=== PATIENT | female | born 1950 | race Caucasian/White ===

== ENCOUNTER → 2017-02-26 | Outpatient (CLI) | payer OTHER ==
[~2017-02-26] MED LIST: ALBIPROI; ALBIPROI INH; ALBU.083IS IH; ALBU90OI6 INH; ALBU90OI61 INH; ALEN70 PO; AMOX500; ARIP20 PO; ARIP30 PO; ASPI325 PO; ASPI81CH PO; ASPI81EC PO; ATOR20 PO; BACL10 PO; BENZ100A PO; BUPR150ER PO; BUPR150T2; BUSP10 PO; Budeprion Xl300 MG PO; Bystolic2.5 MG PO; CALCAVITD PO; CALCAVITDA PO; CALGLU500 PO; CALMAGZIN PO; CLIM.025TP TD; CONEST.3 PO; CYCL10 PO; Calcium 250+D1 EACH PO; DHEA 10 MG TAB1 EACH PO; DIPH50 PO; DIVA250EC; DIVA250ER PO; DIVA500EC; DIVA500EC PO; DIVA500ER PO; DOXY100T53 PO; DULO60 PO; Desyrel50 MG PO; ERGO50000 PO; ESTR.05PBW TOP; FLUSAL5005 INH; GEMF600; HYDACE5325 PO; IBUP800 PO; LEVAQUIN; LEVO750 PO; LEVSOD100 PO; LEVSOD50 PO; LEVSOD75 PO; LORA.5; LORA.5 PO; LORA1; LORA1 PO; LOVA20 PO; MELA3; MELO7.5 PO; MILN100T PO; MOMENI; MONT10T PO; NABU750 PO; NAC600 MG PO; NAPR500 PO; NASACORT10.8 ML; NASOCORT; NICO14TP TOP; NICO21TP TOP; NICO7 TOP; Naprosyn500 MG PO; Norco 5-325 Ta1 EACH PO; OLAN5 PO; OMEP20ER PO; ONDA4ODT MM; PANT40 PO; PRED10 PO; PREG100 PO; PREG50; PROBIOTIC1 EAC1 PO; PROG100 PO; PROP10 PO; Prometrium200 MG PO; QNASL CHILDREN4.9 GM INH; QUET100; QUET25; RANI150 PO; RISP.25; RISP.5; RISP2; ROFL500T PO; Rapaflo8 MG PO; Reclast 55 MG/100 M IV; SAVELLA50 MG PO; SERT100 PO; SIMV40 PO; STOOL SOFTENER1 EAC1 PO; TIOT18 IH; TIOT18 INH; TIZANIDINE HCL4 MG PO; TIZANIDINE HCL6 MG PO; TOPI100 PO; TOPI25C PO; TRAM50 PO; TRAZ100 PO; TRAZ50; TRAZ50 PO; Ultram50 MG PO; Ventolin Soln3 ML INH; Ventolin Soln3 ML NEB; Ventolin5 MG/1 ML INH; ZOLEDRONIC4 MG/100 M IV; Zofran4 MG PO; [UNRECOGNIZED DRUG - OTHER]; [UNRECOGNIZED DRUG - REMARK]; [UNRECOGNIZED DRUG - REMARK]
== END | disposition home or self-care (01) ==
LOC: OLS 13:25
DX: R05 Cough (principal)
CPT/HCPCS: 87070; 87205

== ENCOUNTER 2017-03-18 06:44 | Emergency (ER) | payer OTHER ==
[~2017-03-18] VITALS: Ht 170.2 cm; Wt 52.2 kg
[~2017-03-18 06:44] MED LIST changes: -QNASL CHILDREN4.9 GM INH; -SAVELLA50 MG PO; -TOPI25C PO
== END 2017-03-18 08:35 | disposition home or self-care (01) ==
LOC: ER 06:44
DX: S29.9XXA Unspecified injury of thorax, initial encounter (principal); W10.9XXA Fall (on) (from) unspecified stairs and steps, initial encounter; Z88.5 Allergy status to narcotic agent; Z88.8 Allergy status to other drugs, medicaments and biological substances; Z79.899 Other long term (current) drug therapy; Z86.73 Personal history of transient ischemic attack (TIA), and cerebral infarction without residual deficits
CPT/HCPCS: 71101; 99283

== ENCOUNTER 2017-04-09 13:03 | Day surgery (SDC) | payer OTHER ==
[~2017-04-09] VITALS: Ht 167.6 cm; Wt 54.3 kg
[2017-04-09] MEDS ORDERED: QNASL CHILDREN4.9 GM INH (14:15)
[2017-04-09] MEDS ORDERED: ALBU90OI61 INH (14:17)
[2017-04-09] MEDS ORDERED: TOPI25C PO (14:17)
== END 2017-04-09 15:55 | disposition home or self-care (01) ==
LOC: ORSCSDS 13:03
PROVIDERS: Internal Medicine Gastroenterology
PROC: 0DB68ZX Excision of Stomach, Via Natural or Artificial Opening Endoscopic, Diagnostic (ICD-10-PCS; principal; 2017-04-09 14:45)
PROC: 0DB58ZX Excision of Esophagus, Via Natural or Artificial Opening Endoscopic, Diagnostic (ICD-10-PCS; principal; 2017-04-09 14:45)
DX: K92.0 Hematemesis (principal); K22.2 Esophageal obstruction; K29.80 Duodenitis without bleeding; K21.0 Gastro-esophageal reflux disease with esophagitis; J45.909 Unspecified asthma, uncomplicated; F31.9 Bipolar disorder, unspecified; M79.7 Fibromyalgia; E78.5 Hyperlipidemia, unspecified; E03.9 Hypothyroidism, unspecified; Z87.891 Personal history of nicotine dependence; Z79.899 Other long term (current) drug therapy; K29.70 Gastritis, unspecified, without bleeding
CPT/HCPCS: 88305; 88342; J7120

== ENCOUNTER 2017-06-24 22:31 | Observation (INO) | payer OTHER ==
[~2017-06-24] VITALS: Ht 167.6 cm; Wt 49.9 kg
[~2017-06-24 22:31] MED LIST changes: +QNASL CHILDREN4.9 GM INH; +TOPI25C PO
[2017-06-24 22:44] LABS: Source, Urine Clean Catch
[2017-06-24 22:51] LABS: Bilirubin, Urine Neg (Neg); Blood, Urine 1+ (Neg); Glucose Qualitative, Urine Neg (Neg); Ketones, Urine Neg (Neg); Leukocyte Esterase, Urine Neg (Neg); Nitrite, Urine Neg (Neg); Protein, Urine Neg (Neg); Specific Gravity, Urine 1.005 (1.003-1.022); Urobilinogen, Urine NORM (Normal)
[2017-06-24 22:55] LABS: Appearance, Urine Clear (Clear); Color, Urine Yellow (P-Yellow)
[2017-06-24 22:57] LABS: Bacteria Few /hpf; Red Blood Cells, Urine 0-2 /hpf (0-2); Squamous Epithelial Cells Rare /hpf (Few); White Blood Cells, Urine 0-2 /hpf (0-5)
[2017-06-24 23:04] LABS: U Amphetamine Screen Not Detected; U Barbituate Screen Not Detected; U Benzodiazapine Screen Not Detected; U Buprenorphine Screen Not Detected; U Cannabinoids Screen Not Detected; U Cocaine Screen Not Detected; U Methadone Screen Not Detected; U Methamphetamine Screen Not Detected; U Opiates Screen Not Detected; U Oxycodone Screen Not Detected; U Phencyclidine Screen Not Detected; U Propoxyphene Screen Not Detected
[2017-06-24 23:39] LABS: BASOPHILS ABSOLUTE AUTO 0.04 K/mm3 (0.00-0.23); BASOPHILS PERCENT AUTO 1 % (0-2); EOSINOPHILS ABSOLUTE AUTO 0.09 K/mm3 (0.00-0.68); EOSINOPHILS PERCENT AUTO 1 % (0-6); Hematocrit 38.6 % (33.0-51.0); Hemoglobin 12.8 g/dL (11.5-16.0); IMMATURE GRAN ABSOLUTE AUTO 0.02 K/mm3 (0.00-0.10); IMMATURE GRAN PERCENT AUTO 0 % (0-1); LYMPHOCYTES ABSOLUTE AUTO 2.72 K/mm3 (0.84-5.20); LYMPHOCYTES PERCENT AUTO 44 % (21-46); MONOCYTES PERCENT AUTO 8 % (4-13); Mean Corpuscular HGB 31.7 pg (26.0-34.0); Mean Corpuscular HGB Conc 33.2 g/dL (31.5-36.5); Mean Corpuscular Volume 96 fL (80-100); Mean Platelet Volume 10.3 fL (9.1-12.4); NEUTROPHILS ABSOLUTE AUTO 2.86 K/mm3 (1.96-9.15); NEUTROPHILS PERCENT AUTO 46 % (41-73); Platelet Count 327 K/mm3 (150-400); RDW Standard Deviation 51.9 fL (35.1-46.3); Red Blood Cell Count 4.04 M/mm3 (3.80-5.20); White Blood Cell Count 6.23 K/mm3 (4.00-11.30)
[2017-06-24] MEDS ORDERED: SAVELLA50 MG PO (23:40)
[2017-06-25 00:03] LABS: Alanine Aminotransfer (ALT/SGP 23 U/L (12-78); Alk Phos 109 U/L (50-136); Anion Gap 8 mmol/L (6-16); Aspartate Aminotrans (AST/SGOT 24 U/L (12-37); Bilirubin, Total 0.2 mg/dL (0.1-1.0); Blood Urea Nitrogen 12 mg/dL (8-24); Bun/Creatinine Ratio 14.1 (12.0-20.0); CO2, Blood 27 mmol/L (21-32); Calcium, Blood 8.9 mg/dL (8.5-10.1); Chloride, Blood 110 mmol/L (98-108); Creatinine, Blood 0.85 mg/dL (0.40-1.00); Ethanol (Alcohol), Blood, Med 212 mg/dL; Globulin, Blood 4.1 g/dL (2.2-4.0); Glomerular Filtration Rate >60 (60-); Glucose, Blood 107 mg/dL (70-99); Potassium, Blood 3.7 mmol/L (3.5-5.5); Salicylate <1.7 mg/dL (2.8-20.0); Sodium, Blood 145 mmol/L (136-145); Total Protein, Blood 8.1 g/dL (6.4-8.2)
[2017-06-25 00:08] LABS: Acetaminophen, Random <2.0 ug/mL (10.0-30.0)
== END 2017-06-25 14:09 | disposition home or self-care (01) ==
LOC: ER 22:31 → EOR 22:32
PROVIDERS: Emergency Medicine
DX: S61.512A Laceration without foreign body of left wrist, initial encounter (principal); S61.511A Laceration without foreign body of right wrist, initial encounter; X78.1XXA Intentional self-harm by knife, initial encounter; F10.129 Alcohol abuse with intoxication, unspecified; M81.0 Age-related osteoporosis without current pathological fracture; F31.9 Bipolar disorder, unspecified; Y90.7 Blood alcohol level of 200-239 mg/100 ml; Z88.5 Allergy status to narcotic agent; Z88.1 Allergy status to other antibiotic agents; Z88.8 Allergy status to other drugs, medicaments and biological substances; Z79.899 Other long term (current) drug therapy; Z98.890 Other specified postprocedural states; Z90.49 Acquired absence of other specified parts of digestive tract; Z90.710 Acquired absence of both cervix and uterus; Z87.891 Personal history of nicotine dependence
CPT/HCPCS: 12002; 80053; 81001; 81025; 84443; 85025; 90471; 90714; 99285; G0378; G0480

== ENCOUNTER 2017-09-10 20:54 | Emergency (ER) | payer OTHER ==
[~2017-09-10] VITALS: Ht 167.6 cm; Wt 54.4 kg
[~2017-09-10 20:54] MED LIST changes: +SAVELLA50 MG PO
[2017-09-10 23:18] LABS: BASOPHILS ABSOLUTE AUTO 0.01 K/mm3 (0.00-0.23); BASOPHILS PERCENT AUTO 0 % (0-2); EOSINOPHILS ABSOLUTE AUTO 0.01 K/mm3 (0.00-0.68); EOSINOPHILS PERCENT AUTO 0 % (0-6); Hematocrit 34.3 % (33.0-51.0); Hemoglobin 11.1 g/dL (11.5-16.0); IMMATURE GRAN ABSOLUTE AUTO 0.02 K/mm3 (0.00-0.10); IMMATURE GRAN PERCENT AUTO 0 % (0-1); LYMPHOCYTES ABSOLUTE AUTO 2.12 K/mm3 (0.84-5.20); LYMPHOCYTES PERCENT AUTO 38 % (21-46); MONOCYTES ABSOLUTE AUTO 0.73 K/mm3 (0.16-1.47); MONOCYTES PERCENT AUTO 13 % (4-13); Mean Corpuscular HGB 33.3 pg (26.0-34.0); Mean Corpuscular HGB Conc 32.4 g/dL (31.5-36.5); Mean Corpuscular Volume 103 fL (80-100); Mean Platelet Volume 11.3 fL (9.1-12.4); NEUTROPHILS ABSOLUTE AUTO 2.75 K/mm3 (1.96-9.15); NEUTROPHILS PERCENT AUTO 49 % (41-73); Platelet Count 252 K/mm3 (150-400); RDW Standard Deviation 49.3 fL (35.1-46.3); Red Blood Cell Count 3.33 M/mm3 (3.80-5.20); White Blood Cell Count 5.64 K/mm3 (4.00-11.30)
[2017-09-10 23:36] LABS: Alanine Aminotransfer (ALT/SGP 34 U/L (12-78); Albumin, Blood 3.7 g/dL (3.4-5.0); Albumin/Globulin Ratio 1.1 (0.8-1.8); Alk Phos 156 U/L (50-136); Anion Gap 13 mmol/L (6-16); Aspartate Aminotrans (AST/SGOT 29 U/L (12-37); Bilirubin, Total 0.2 mg/dL (0.1-1.0); Blood Urea Nitrogen 17 mg/dL (8-24); Bun/Creatinine Ratio 18.1 (12.0-20.0); CO2, Blood 23 mmol/L (21-32); Calcium, Blood 8.3 mg/dL (8.5-10.1); Chloride, Blood 111 mmol/L (98-108); Creatinine, Blood 0.94 mg/dL (0.40-1.00); Ethanol (Alcohol), Blood, Med 161 mg/dL; Globulin, Blood 3.5 g/dL (2.2-4.0); Glomerular Filtration Rate >60 (60-); Glucose, Blood 114 mg/dL (70-99); Salicylate <1.7 mg/dL (2.8-20.0); Sodium, Blood 147 mmol/L (136-145); Total Protein, Blood 7.2 g/dL (6.4-8.2)
[2017-09-10 23:45] LABS: Acetaminophen, Random <2.0 ug/mL (10.0-30.0)
[2017-09-11 03:24] LABS: Source, Urine Clean Catch
[2017-09-11 03:26] LABS: Appearance, Urine Clear (Clear); Bilirubin, Urine Neg (Neg); Blood, Urine 2+ (Neg); Color, Urine Yellow (P-Yellow); Glucose Qualitative, Urine Neg (Neg); Ketones, Urine Neg (Neg); Leukocyte Esterase, Urine Neg (Neg); Nitrite, Urine Neg (Neg); Protein, Urine Neg (Neg); Urobilinogen, Urine NORM (Normal)
[2017-09-11 03:37] LABS: U Amphetamine Screen Not Detected; U Barbituate Screen Not Detected; U Benzodiazapine Screen Not Detected; U Buprenorphine Screen Not Detected; U Cannabinoids Screen Not Detected; U Cocaine Screen Not Detected; U Methadone Screen Not Detected; U Methamphetamine Screen Not Detected; U Opiates Screen Not Detected; U Oxycodone Screen Not Detected; U Phencyclidine Screen Not Detected; U Propoxyphene Screen Not Detected
[2017-09-11 03:44] LABS: Bacteria Few /hpf; Red Blood Cells, Urine 0-2 /hpf (0-2); Squamous Epithelial Cells Few /hpf (Few); White Blood Cells, Urine 0-2 /hpf (0-5)
== END 2017-09-11 06:01 | disposition home or self-care (01) ==
LOC: ER 20:54
PROVIDERS: Emergency Medicine
DX: S61.512A Laceration without foreign body of left wrist, initial encounter (principal); F31.9 Bipolar disorder, unspecified; F10.129 Alcohol abuse with intoxication, unspecified; Z88.5 Allergy status to narcotic agent; Z91.048 Other nonmedicinal substance allergy status; Z88.8 Allergy status to other drugs, medicaments and biological substances; Z88.1 Allergy status to other antibiotic agents; Z79.899 Other long term (current) drug therapy; Z86.73 Personal history of transient ischemic attack (TIA), and cerebral infarction without residual deficits; Z87.891 Personal history of nicotine dependence; X78.1XXA Intentional self-harm by knife, initial encounter
CPT/HCPCS: 80053; 81001; 81025; 84443; 85025; 99284; G0480

== ENCOUNTER → 2018-05-30 | Outpatient (CLI) | payer OTHER ==
[2018-06-04 08:13] LABS: COTININE None Detected (.); NICOTINE None Detected (.)
== END | disposition home or self-care (01) ==
LOC: LAB 11:15 → LAB SHORT 11:15
PROVIDERS: Ophthalmology
DX: F17.211 Nicotine dependence, cigarettes, in remission (principal)
CPT/HCPCS: G0480

== ENCOUNTER 2018-06-12 10:25 | Day surgery (SDC) | payer OTHER ==
[~2018-06-12] VITALS: Ht 167.6 cm; Wt 58.6 kg
--- NOTE | 2018-06-12 16:45 | NUR ---
06/12/18 1645 Barrett Szymanski 1ST IV ATTEMPT IN RH UNSUCCESSFUL, RAGNEL 2ND IV ATTEMPT IN RAC SUCCESSFUL, RANGEL
== END 2018-06-12 12:30 | disposition home or self-care (01) ==
LOC: ORSCSDS 10:25
PROVIDERS: Ophthalmology
PROC: 08RJ3JZ Replacement of Right Lens with Synthetic Substitute, Percutaneous Approach (ICD-10-PCS; principal; 2018-06-12 12:00)
DX: H25.11 Age-related nuclear cataract, right eye (principal); I10 Essential (primary) hypertension; J44.9 Chronic obstructive pulmonary disease, unspecified; E03.9 Hypothyroidism, unspecified; K21.9 Gastro-esophageal reflux disease without esophagitis; Z79.899 Other long term (current) drug therapy; Z87.891 Personal history of nicotine dependence
CPT/HCPCS: J2001; J2250; J3010; V2632

== ENCOUNTER 2018-06-26 11:29 | Day surgery (SDC) | payer OTHER ==
[~2018-06-26] VITALS: Ht 167.6 cm; Wt 58.7 kg
--- NOTE | 2018-06-26 12:18 | NUR ---
06/26/18 1218 Barrett Szymanski 1ST IV ATTEMPT IN LAC UNSUCCESSFUL, ORSC.DLB 2ND IV ATTEMPT IN RH SUCCESSFUL, ORSC.DLB
== END 2018-06-26 13:20 | disposition home or self-care (01) ==
LOC: ORSCSDS 11:29
PROVIDERS: Ophthalmology
PROC: 08RK3JZ Replacement of Left Lens with Synthetic Substitute, Percutaneous Approach (ICD-10-PCS; principal; 2018-06-26 13:00)
DX: H25.12 Age-related nuclear cataract, left eye (principal); E03.9 Hypothyroidism, unspecified; J44.9 Chronic obstructive pulmonary disease, unspecified; F43.12 Post-traumatic stress disorder, chronic; M79.7 Fibromyalgia; F31.62 Bipolar disorder, current episode mixed, moderate; Z87.891 Personal history of nicotine dependence; Z79.899 Other long term (current) drug therapy
CPT/HCPCS: J2001; J2250; J3010; V2632

== ENCOUNTER 2018-12-06 09:04 | Emergency (ER) | payer OTHER ==
[~2018-12-06] VITALS: Ht 152.4 cm; Wt 50.8 kg
[2018-12-06 09:58] LABS: BASOPHILS ABSOLUTE AUTO 0.03 K/mm3 (0.00-0.23); BASOPHILS PERCENT AUTO 0 % (0-2); EOSINOPHILS ABSOLUTE AUTO 0.04 K/mm3 (0.00-0.68); EOSINOPHILS PERCENT AUTO 0 % (0-6); Hematocrit 44.1 % (33.0-51.0); Hemoglobin 14.3 g/dL (11.5-16.0); IMMATURE GRAN ABSOLUTE AUTO 0.24 K/mm3 (0.00-0.10); IMMATURE GRAN PERCENT AUTO 2 % (0-1); LYMPHOCYTES ABSOLUTE AUTO 2.66 K/mm3 (0.84-5.20); LYMPHOCYTES PERCENT AUTO 23 % (21-46); MONOCYTES ABSOLUTE AUTO 0.73 K/mm3 (0.16-1.47); MONOCYTES PERCENT AUTO 6 % (4-13); Mean Corpuscular HGB 33.5 pg (26.0-34.0); Mean Corpuscular HGB Conc 32.4 g/dL (31.5-36.5); Mean Corpuscular Volume 103 fL (80-100); Mean Platelet Volume 11.9 fL (9.1-12.4); NEUTROPHILS ABSOLUTE AUTO 8.04 K/mm3 (1.96-9.15); NEUTROPHILS PERCENT AUTO 69 % (41-73); NRBC ABSOLUTE 0.03 K/mm3 (0.00-0.02); NRBC Auto 0.3 /100 WBC (0.0-0.2); Platelet Count 241 K/mm3 (150-400); RDW Coefficient Variation 12.8 % (11.7-14.2); RDW Standard Deviation 48.7 fL (35.1-46.3); Red Blood Cell Count 4.27 M/mm3 (3.80-5.20); White Blood Cell Count 11.74 K/mm3 (4.00-11.30)
[2018-12-06 10:16] LABS: Albumin, Blood 3.4 g/dL (3.4-5.0); Albumin/Globulin Ratio 0.8 (0.8-1.8); Bilirubin, Total 0.5 mg/dL (0.1-1.0); Bun/Creatinine Ratio 19.1 (12.0-20.0); Calcium, Blood 10.3 mg/dL (8.5-10.1); Creatine Kinase MB 2.3 ng/mL (0.0-3.6); Creatine Kinase MB Index 1.6 (0.0-4.0); Creatinine, Blood 1.41 mg/dL (0.40-1.00); Globulin, Blood 4.2 g/dL (2.2-4.0); Potassium, Blood 5.4 mmol/L (3.5-5.5); Total Protein, Blood 7.6 g/dL (6.4-8.2)
[2018-12-06] MEDS ORDERED: Ultram50 MG PO (11:55)
== END 2018-12-06 12:09 | disposition home or self-care (01) ==
LOC: ER 09:04
PROVIDERS: Emergency Medicine
DX: S22.41XA Multiple fractures of ribs, right side, initial encounter for closed fracture (principal); S40.012A Contusion of left shoulder, initial encounter; S50.11XA Contusion of right forearm, initial encounter; S50.312A Abrasion of left elbow, initial encounter; F31.9 Bipolar disorder, unspecified; D72.829 Elevated white blood cell count, unspecified; N28.9 Disorder of kidney and ureter, unspecified; F17.210 Nicotine dependence, cigarettes, uncomplicated; Z86.73 Personal history of transient ischemic attack (TIA), and cerebral infarction without residual deficits; Z88.5 Allergy status to narcotic agent; Z91.048 Other nonmedicinal substance allergy status; Z88.8 Allergy status to other drugs, medicaments and biological substances; Z88.1 Allergy status to other antibiotic agents; Z79.899 Other long term (current) drug therapy; W13.0XXA Fall from, out of or through balcony, initial encounter
CPT/HCPCS: 36415; 70450; 71045; 72125; 80053; 82550; 82553; 85025; 93005; 93010; 99285-25

== ENCOUNTER → 2019-01-04 | Outpatient (CLI) | payer OTHER ==
[~2019-01-04] MED LIST changes: +ALBU2.5V5 INH; +Ativan1 MG PO; +CELECOXIB200 MG PO; +Clonazepam0.5 MG PO; +Inderal 20 mg T20 MG PO; +Oxcarbazepine300 MG PO; +Oxcarbazepine600 MG PO; +SEEBRI NEOHALER INH; +Trileptal300 MG PO; +VENL150ER PO; +VENLAFAXINE HCL75 MG PO; +[UNRECOGNIZED DRUG - OTHER] INH
[2019-01-05 15:30] LABS: Stool Occult Bld Immuno 1 Positive (NEGATIVE)
== END | disposition home or self-care (01) ==
LOC: LAB 14:39 → LAB SHORT 14:39
PROVIDERS: Family Medicine
DX: Z12.11 Encounter for screening for malignant neoplasm of colon (principal)
CPT/HCPCS: G0328

== ENCOUNTER 2019-01-05 10:26 | Observation (INO) | payer OTHER ==
[~2019-01-05] VITALS: Ht 172.7 cm; Wt 42.2 kg
[~2019-01-05 10:26] MED LIST changes: -ALBU2.5V5 INH; -Ativan1 MG PO; -CELECOXIB200 MG PO; -Clonazepam0.5 MG PO; -Inderal 20 mg T20 MG PO; -LEVSOD75 PO; -Oxcarbazepine300 MG PO; -Oxcarbazepine600 MG PO; -SEEBRI NEOHALER INH; -Trileptal300 MG PO; -VENL150ER PO; -VENLAFAXINE HCL75 MG PO; -[UNRECOGNIZED DRUG - OTHER] INH
[2019-01-05 11:07] LABS: BASOPHILS ABSOLUTE AUTO 0.03 K/mm3 (0.00-0.23); BASOPHILS PERCENT AUTO 0 % (0-2); EOSINOPHILS ABSOLUTE AUTO 0.06 K/mm3 (0.00-0.68); EOSINOPHILS PERCENT AUTO 1 % (0-6); Hematocrit 41.4 % (33.0-51.0); Hemoglobin 12.8 g/dL (11.5-16.0); IMMATURE GRAN ABSOLUTE AUTO 0.12 K/mm3 (0.00-0.10); IMMATURE GRAN PERCENT AUTO 1 % (0-1); LYMPHOCYTES ABSOLUTE AUTO 4.25 K/mm3 (0.84-5.20); LYMPHOCYTES PERCENT AUTO 43 % (21-46); MONOCYTES ABSOLUTE AUTO 0.43 K/mm3 (0.16-1.47); MONOCYTES PERCENT AUTO 4 % (4-13); Mean Corpuscular HGB 33.5 pg (26.0-34.0); Mean Corpuscular HGB Conc 30.9 g/dL (31.5-36.5); Mean Corpuscular Volume 108 fL (80-100); Mean Platelet Volume 10.9 fL (9.1-12.4); NEUTROPHILS PERCENT AUTO 51 % (41-73); Platelet Count 511 K/mm3 (150-400); RDW Coefficient Variation 15.5 % (11.7-14.2); RDW Standard Deviation 62.3 fL (35.1-46.3); Red Blood Cell Count 3.82 M/mm3 (3.80-5.20); White Blood Cell Count 9.89 K/mm3 (4.00-11.30)
[2019-01-05 11:39] LABS: Albumin, Blood 3.1 g/dL (3.4-5.0); Albumin/Globulin Ratio 0.7 (0.8-1.8); Bilirubin, Total 0.5 mg/dL (0.1-1.0); Bun/Creatinine Ratio 20.6 (12.0-20.0); Calcium, Blood 9.9 mg/dL (8.5-10.1); Creatinine, Blood 1.41 mg/dL (0.40-1.00); Globulin, Blood 4.6 g/dL (2.2-4.0); Total Protein, Blood 7.7 g/dL (6.4-8.2)
[2019-01-05] MEDS ORDERED: Inderal 20 mg T20 MG PO (14:18)
[2019-01-05] MEDS ORDERED: LEVSOD75 PO (14:18)
[2019-01-05] MEDS ORDERED: Oxcarbazepine300 MG PO (14:19)
[2019-01-05] MEDS ORDERED: Oxcarbazepine600 MG PO (14:19)
[2019-01-05] MEDS ORDERED: Clonazepam0.5 MG PO (14:20)
[2019-01-05] MEDS ORDERED: VENLAFAXINE HCL75 MG PO (14:26)
[2019-01-05] MEDS ORDERED: CELECOXIB200 MG PO (14:27)
--- NOTE | 2019-01-06 00:34 | NUR ---
300MLS OF ORANJE JUICE PROVIDED TO PT FOR CBG OF 67. PT TAKING LITTLE SIPS AT A TIME DUE TO INABILITY TO DRINK QUICKLY AND BECOMING NAUSEIOUS.
[2019-01-06 04:21] LABS: Anion Gap 9 mmol/L (6-16); Blood Urea Nitrogen 20 mg/dL (8-24); Bun/Creatinine Ratio 20.9 (12.0-20.0); CO2, Blood 21 mmol/L (21-32); Chloride, Blood 106 mmol/L (98-108); Creatinine, Blood 0.96 mg/dL (0.40-1.00); Glomerular Filtration Rate >60 (60-); Glucose, Blood 74 mg/dL (70-99); Potassium, Blood 3.5 mmol/L (3.5-5.5); Sodium, Blood 136 mmol/L (136-145)
[2019-01-06 04:22] LABS: Calcium, Blood 7.5 mg/dL (8.5-10.1)
--- NOTE | 2019-01-06 07:58 | NUR ---
END OF SHIFT SUMMARY NO ACUTE CHANGES THIS SHIFT. VSS. GENERAL MALAISE NOTED, PT SPEAKS VERY LITTLE BUT IS ALERT AND ORIENTED. JUST APPEARS VERY WEAK. CT WITH ORAL CONTRAST COMPLETED FOR ABD AND PELVIS. PT HAS REMAINED IN BED. HAD INCIDENT OF INCONTINENCE. URINE GHAS NO0T BEEN COLLECTED DUE TO PT REFUSING STRAIGHT CATH AND VOIDING IN DEPENZE VERSUS BED ADKINS. CBG NOTED TO BE LOW, OJ GIVEN, PT SIPPING. OHERWISE, PT HAS USED CALL LIGJHT APPROPRIATELY AND SLEPT T/O MAJORITY OF SHIFT. REPORT GIVEN TO ONCOMING RN.
[2019-01-06] MEDS ORDERED: Trileptal300 MG PO (10:51)
[2019-01-06] MEDS ORDERED: VENL150ER PO (10:53)
[2019-01-06] MEDS ORDERED: Ativan1 MG PO (10:55)
[2019-01-06] MEDS ORDERED: ALBU2.5V5 INH (10:56)
[2019-01-06] MEDS ORDERED: [UNRECOGNIZED DRUG - OTHER] INH (13:26)
[2019-01-06] MEDS ORDERED: SEEBRI NEOHALER INH (13:30)
[2019-01-06] MEDS ORDERED: MONT10T PO (13:30)
--- NOTE | 2019-01-06 14:36 | NUR ---
ASSUMED CARE APPROXIMATELY 0700; PT ALERT W/ FLAT AFFECT; TAKES TIME TO RESPOND; PT SITTING UP IN BED; UNABLE TO REVIEW MEDICATION OR SAY WHAT SHE TAKES AT HOME; R AC IV INFUSING W/ LR THIS AM; SIGNIFICANT OTHER AND FRIEND PRESENT AT BEDSIDE; OT/PT IN TO WORK W/ PT; HOME HEALTH TO BEDSIDE IN AFTERNOON; FRIEND JULIO C TOÑITOJULIÁN AND PT UNABLE TO EAT IT; FRIEND EDUCATED ON NEED TO NOT GIVE HER LARGE BITES AND DIFFICULT THINGS TO CHEW; PT ADVISED TO EAT HOSPITAL MEAL TRAY; SIGNIFICANT OTHER TO TAKE PT HOME UPON DISCHARGE; AID ASSISTED PT W/ SHOWER; WILL CONTINUE TO MONITOR CLOSELY
--- NOTE | 2019-01-06 15:48 | NUR ---
PT DISCHARGE OVERVIEWED W/ PT; PT'S SIGNIFICANT OTHER PRESENT TO TAKE HER HOME; IV DISCONTINUED WNL AND INTACT; PT WAS DRESSED W/ ASSISTANCE FROM FRIEND AND SIGNIGICANT OTHER; NEW MEDICATIONS REVIEWED, PT AND THOSE PRESENT STATED THEY UNDERSTOOD AND FOLLOW UP APPOINTMENTS WOULD BE MADE AND KEPT; PT WHEELED OUT IN WHEELCHAIR BY AID AND ALL BELONGINGS W/ HER.
== END 2019-01-06 14:35 | disposition home health service (06) ==
LOC: ER 10:26 → PCU 10:27
PROVIDERS: Emergency Medicine; ADMIT Internal Medicine
DX: N17.9 Acute kidney failure, unspecified (principal); E87.2 Acidosis; E86.0 Dehydration; F31.9 Bipolar disorder, unspecified; E03.9 Hypothyroidism, unspecified; I10 Essential (primary) hypertension; M81.0 Age-related osteoporosis without current pathological fracture; F17.210 Nicotine dependence, cigarettes, uncomplicated; J43.2 Centrilobular emphysema; E11.9 Type 2 diabetes mellitus without complications; R63.4 Abnormal weight loss; Z68.1 Body mass index [BMI] 19.9 or less, adult; Z86.73 Personal history of transient ischemic attack (TIA), and cerebral infarction without residual deficits; Z90.710 Acquired absence of both cervix and uterus; Z88.1 Allergy status to other antibiotic agents; Z88.5 Allergy status to narcotic agent; Z88.6 Allergy status to analgesic agent; Z91.048 Other nonmedicinal substance allergy status; Z79.51 Long term (current) use of inhaled steroids; Z79.899 Other long term (current) drug therapy
CPT/HCPCS: 36415; 71046; 74176; 80048; 80053; 82010; 82607; 82746; 82800; 82947; 83605; 84443; 85025; 93005; 93010; 96360; 96372; 97116; 97162; 97165; 97530; 97535; 99285-25; G0378; J1650; J7030; J7120

== ENCOUNTER → 2019-02-04 | Outpatient (CLI) | payer OTHER ==
[~2019-02-04] MED LIST changes: +ALBU2.5V5 INH; +Ativan1 MG PO; +CELECOXIB200 MG PO; +Clonazepam0.5 MG PO; +Inderal 20 mg T20 MG PO; +LEVSOD75 PO; +Oxcarbazepine300 MG PO; +Oxcarbazepine600 MG PO; +SEEBRI NEOHALER INH; +Trileptal300 MG PO; +VENL150ER PO; +VENLAFAXINE HCL75 MG PO; +[UNRECOGNIZED DRUG - OTHER] INH
[2019-02-05 06:31] LABS: Candida species (DNA Probe) Negative (NEGATIVE); G. vaginalis (DNA Probe) Negative (NEGATIVE); T. vaginalis (DNA Probe) Negative (NEGATIVE)
== END ==
LOC: LAB 12:51 → LAB SHORT 12:51
PROVIDERS: Nurse Practitioner
DX: N76.0 Acute vaginitis (principal)
CPT/HCPCS: 87480; 87510; 87660

== ENCOUNTER → 2019-03-25 | Outpatient (CLI) | payer OTHER ==
[2019-03-25 14:54] LABS: Bilirubin, Urine Neg (Neg); Blood, Urine Neg (Neg); Glucose Qualitative, Urine Neg (Neg); Ketones, Urine Neg (Neg); Leukocyte Esterase, Urine Neg (Neg); Nitrite, Urine Neg (Neg); Protein, Urine Neg (Neg); Urobilinogen, Urine NORM (Normal); pH, Urine 6.5 (5.0-8.0)
[2019-03-25 15:00] LABS: Appearance, Urine Clear (Clear); Color, Urine Yellow (P-Yellow)
[2019-03-25 16:15] LABS: Thyroid Stimulating Hormone 0.678 uIU/mL (0.360-4.800); Triiodothyronine, Free 2.64 pg/mL (2.18-3.98)
== END | disposition home or self-care (01) ==
LOC: LAB SHORT 13:14 → LAB 13:14
PROVIDERS: Family Medicine
DX: E03.9 Hypothyroidism, unspecified (principal); R30.0 Dysuria
CPT/HCPCS: 81003; 84443; 84481

== ENCOUNTER → 2019-03-26 | Outpatient (CLI) | payer OTHER | END | disposition home or self-care (01) | LOC: OLS 13:52 → LAB SHORT 13:52 | DX: R91.8 Other nonspecific abnormal finding of lung field (principal) | CPT/HCPCS: 87015; 87116; 87206 ==

== ENCOUNTER → 2019-03-30 | Outpatient (CLI) | payer OTHER | END | disposition home or self-care (01) | LOC: LAB SHORT 10:30 → OLS 10:30 | DX: R91.8 Other nonspecific abnormal finding of lung field (principal) | CPT/HCPCS: 87015; 87116; 87206 ==

== ENCOUNTER → 2019-04-03 | Outpatient (CLI) | payer OTHER | END | disposition home or self-care (01) | LOC: OLS 06:30 → LAB SHORT 06:30 → LAB FUT 03-25 13:25 | DX: R91.8 Other nonspecific abnormal finding of lung field (principal) | CPT/HCPCS: 87015; 87116; 87206 ==

== ENCOUNTER 2019-12-09 12:00 | Emergency (ER) | payer OTHER ==
[~2019-12-09] VITALS: Ht 167.6 cm; Wt 51.3 kg
[~2019-12-09 12:00] MED LIST changes: +HYDR1TAB94 PO; +Percocet 5-3251 EACH PO
[2019-12-09 13:02] LABS: BASOPHILS ABSOLUTE AUTO 0.03 K/mm3 (0.00-0.23); BASOPHILS PERCENT AUTO 0 % (0-2); EOSINOPHILS ABSOLUTE AUTO 0.21 K/mm3 (0.00-0.68); EOSINOPHILS PERCENT AUTO 3 % (0-6); Hematocrit 43.2 % (33.0-51.0); Hemoglobin 14.5 g/dL (11.5-16.0); IMMATURE GRAN ABSOLUTE AUTO 0.02 K/mm3 (0.00-0.10); IMMATURE GRAN PERCENT AUTO 0 % (0-1); LYMPHOCYTES ABSOLUTE AUTO 1.79 K/mm3 (0.84-5.20); LYMPHOCYTES PERCENT AUTO 27 % (21-46); MONOCYTES ABSOLUTE AUTO 0.85 K/mm3 (0.16-1.47); MONOCYTES PERCENT AUTO 13 % (4-13); Mean Corpuscular HGB 32.7 pg (26.0-34.0); Mean Corpuscular HGB Conc 33.6 g/dL (31.5-36.5); Mean Corpuscular Volume 98 fL (80-100); NEUTROPHILS PERCENT AUTO 57 % (41-73); Platelet Count 318 K/mm3 (150-400); RDW Coefficient Variation 13.2 % (11.7-14.2); RDW Standard Deviation 47.8 fL (35.1-46.3); Red Blood Cell Count 4.43 M/mm3 (3.80-5.20)
[2019-12-09 13:37] LABS: Alanine Aminotransfer (ALT/SGP 10 U/L (12-78); Albumin, Blood 3.4 g/dL (3.4-5.0); Albumin/Globulin Ratio 0.7 (0.8-1.8); Alk Phos 127 U/L (50-136); Anion Gap 7 mmol/L (6-16); Aspartate Aminotrans (AST/SGOT 18 U/L (12-37); Bilirubin, Total 0.3 mg/dL (0.1-1.0); Blood Urea Nitrogen 16 mg/dL (8-24); CO2, Blood 28 mmol/L (21-32); Calcium, Blood 9.7 mg/dL (8.5-10.1); Chloride, Blood 101 mmol/L (98-108); Creatinine, Blood 1.14 mg/dL (0.40-1.00); Globulin, Blood 4.6 g/dL (2.2-4.0); Glomerular Filtration Rate 50 (60-); Glucose, Blood 85 mg/dL (70-99); Sodium, Blood 136 mmol/L (136-145); Troponin I <0.015 ng/mL (0.000-0.040)
[2019-12-09] MEDS ORDERED: Norco 5-325 Ta1 EACH PO (15:52)
== END 2019-12-09 15:54 | disposition home or self-care (01) ==
LOC: ER 12:00
PROVIDERS: Physician Assistant
DX: R07.2 Precordial pain (principal); R06.02 Shortness of breath; R05 Cough; F31.9 Bipolar disorder, unspecified; J44.9 Chronic obstructive pulmonary disease, unspecified; I10 Essential (primary) hypertension; E03.9 Hypothyroidism, unspecified; F17.210 Nicotine dependence, cigarettes, uncomplicated; Z88.8 Allergy status to other drugs, medicaments and biological substances; Z88.5 Allergy status to narcotic agent; Z79.899 Other long term (current) drug therapy; Z86.73 Personal history of transient ischemic attack (TIA), and cerebral infarction without residual deficits; W19.XXXA Unspecified fall, initial encounter
CPT/HCPCS: 36415; 71046; 72100; 80053; 84484; 85025; 93005; 93010; 99284-25

== ENCOUNTER → 2019-12-17 | Outpatient (CLI) | payer OTHER | END | disposition home or self-care (01) | LOC: LAB 17:31 → LAB SHORT 17:31 | DX: N30.01 Acute cystitis with hematuria (principal) | CPT/HCPCS: 87077; 87086; 87186 ==

== ENCOUNTER 2020-02-11 11:29 | Emergency (ER) | payer OTHER ==
[~2020-02-11] VITALS: Ht 167.6 cm; Wt 51.3 kg
[2020-02-11 12:28] LABS: Source, Urine Clean Catch
[2020-02-11 12:30] LABS: Appearance, Urine Clear (Clear); Bilirubin, Urine Neg (Neg); Blood, Urine 2+ (Neg); Color, Urine Yellow (P-Yellow); Glucose Qualitative, Urine Neg (Neg); Ketones, Urine 2+ (Neg); Leukocyte Esterase, Urine Neg (Neg); Nitrite, Urine Neg (Neg); Protein, Urine Neg (Neg); Specific Gravity, Urine 1.015 (1.003-1.022); Urobilinogen, Urine NORM (Normal)
[2020-02-11 12:37] LABS: Bacteria Mod /hpf; Squamous Epithelial Cells Few /hpf (Few); White Blood Cells, Urine 0-2 /hpf (0-5)
== END 2020-02-11 18:25 | disposition home or self-care (01) ==
LOC: ER 11:29
PROVIDERS: Physician Assistant
DX: S39.012A Strain of muscle, fascia and tendon of lower back, initial encounter (principal); R33.9 Retention of urine, unspecified; F17.210 Nicotine dependence, cigarettes, uncomplicated; Z79.899 Other long term (current) drug therapy; Z88.5 Allergy status to narcotic agent; Z88.8 Allergy status to other drugs, medicaments and biological substances; W18.30XA Fall on same level, unspecified, initial encounter
CPT/HCPCS: 51702; 51798; 72100; 72148; 81001; 87086; 96374-59; 96376-59; 99284-25; J3010

== ENCOUNTER 2020-09-17 19:46 | Emergency (ER) | payer OTHER ==
[~2020-09-17] VITALS: Ht 167.6 cm; Wt 42.6 kg
[2020-09-17] MEDS ORDERED: LAMO25 PO (21:35)
[2020-09-17] MEDS ORDERED: CLON1 PO (21:35)
[2020-09-17] MEDS ORDERED: Seroquel Xr50 MG PO (21:36)
[2020-09-17] MEDS ORDERED: HYDR1TAB94 PO (21:39)
[2020-09-27] MEDS ORDERED: ALBU90OI INH (10:45)
[2020-09-27] MEDS ORDERED: CLON.5 PO (10:45)
[2020-09-27] MEDS ORDERED: CELE200 PO (10:45)
[2020-09-27] MEDS ORDERED: SYMBICORT 160-4.6 GM INH (10:45)
[2020-09-27] MEDS ORDERED: GUAI600T33 PO (10:46)
[2020-09-27] MEDS ORDERED: DOXYCYCLINE HY100 M2 PO (10:46)
[2020-09-27] MEDS ORDERED: Norco 5-325 Ta1 EACH PO (10:46)
[2020-09-27] MEDS ORDERED: DIVA500ER PO (10:46)
[2020-09-27] MEDS ORDERED: LEVSOD75 PO (10:47)
[2020-09-27] MEDS ORDERED: MONT10T PO (10:47)
[2020-09-27] MEDS ORDERED: LAMO100 PO (10:47)
[2020-09-27] MEDS ORDERED: NAPR220 PO (10:47)
[2020-09-27] MEDS ORDERED: SPIRIVA RESPIMAT4 G3 INH (10:48)
[2020-09-27] MEDS ORDERED: QUETIAPINE FUMA50 M3 PO (10:48)
[2020-09-27] MEDS ORDERED: VENL75ER PO (10:48)
[2020-09-27] MEDS ORDERED: VENL150ER PO (10:48)
== END 2020-09-17 21:43 | disposition home or self-care (01) ==
LOC: ER 19:46
DX: S22.42XA Multiple fractures of ribs, left side, initial encounter for closed fracture (principal); S40.022A Contusion of left upper arm, initial encounter; Z88.8 Allergy status to other drugs, medicaments and biological substances; Z88.5 Allergy status to narcotic agent; W01.0XXA Fall on same level from slipping, tripping and stumbling without subsequent striking against object, initial encounter
CPT/HCPCS: 71046; 73060; 96372; 99283-25; J1170

== ENCOUNTER 2020-10-03 08:58 | Day surgery (SDC) | payer OTHER ==
[~2020-10-03] VITALS: Ht 167.6 cm; Wt 42.6 kg
[~2020-10-03 08:58] MED LIST changes: +ALBU90OI INH; +CELE200 PO; +CLON.5 PO; +CLON1 PO; +DOXYCYCLINE HY100 M2 PO; +GUAI600T33 PO; +LAMO100 PO; +LAMO25 PO; +NAPR220 PO; +QUETIAPINE FUMA50 M3 PO; +SPIRIVA RESPIMAT4 G3 INH; +SYMBICORT 160-4.6 GM INH; +Seroquel Xr50 MG PO; +VENL75ER PO
[2020-10-03] MEDS ORDERED: LAMO100 (09:25)
== END 2020-10-03 11:00 | disposition home or self-care (01) ==
LOC: ORSCSDS 08:58
PROVIDERS: Internal Medicine Gastroenterology
PROC: 0DBK8ZX Excision of Ascending Colon, Via Natural or Artificial Opening Endoscopic, Diagnostic (ICD-10-PCS; principal; 2020-10-03 10:00)
PROC: 0DBL8ZX Excision of Transverse Colon, Via Natural or Artificial Opening Endoscopic, Diagnostic (ICD-10-PCS; principal; 2020-10-03 10:00)
PROC: 0DB68ZX Excision of Stomach, Via Natural or Artificial Opening Endoscopic, Diagnostic (ICD-10-PCS; principal; 2020-10-03 10:00)
DX: R63.4 Abnormal weight loss (principal); D12.3 Benign neoplasm of transverse colon; D12.2 Benign neoplasm of ascending colon; K64.8 Other hemorrhoids; K29.70 Gastritis, unspecified, without bleeding; J45.909 Unspecified asthma, uncomplicated; K21.9 Gastro-esophageal reflux disease without esophagitis; R13.19 Other dysphagia; F17.210 Nicotine dependence, cigarettes, uncomplicated; J44.9 Chronic obstructive pulmonary disease, unspecified; Z79.899 Other long term (current) drug therapy
CPT/HCPCS: 88305; 88342; J2704; J7120

== ENCOUNTER → 2020-12-08 | Outpatient (CLI) | payer OTHER ==
[~2020-12-08] MED LIST changes: +LAMO100
[2020-12-08 15:26] LABS: Albumin, Blood 4.1 g/dL (3.4-5.0); Albumin/Globulin Ratio 0.9 (0.8-1.8); Bilirubin, Total 0.3 mg/dL (0.1-1.0); Bun/Creatinine Ratio 30.8 (12.0-20.0); Calcium, Blood 9.8 mg/dL (8.5-10.1); Creatinine, Blood 1.04 mg/dL (0.40-1.00); Globulin, Blood 4.8 g/dL (2.2-4.0); Phosphorus, Blood 3.8 mg/dL (2.5-4.9); Potassium, Blood 4.5 mmol/L (3.5-5.5); Total Protein, Blood 8.9 g/dL (6.4-8.2)
[2020-12-08 15:27] LABS: Hematocrit 47.8 % (33.0-51.0); Hemoglobin 15.7 g/dL (11.5-16.0); Mean Corpuscular HGB 32.2 pg (26.0-34.0); Mean Corpuscular HGB Conc 32.8 g/dL (31.5-36.5); Mean Corpuscular Volume 98 fL (80-100); Mean Platelet Volume 11.3 fL (9.1-12.4); Platelet Count 342 K/mm3 (150-400); RDW Coefficient Variation 13.4 % (11.7-14.2); RDW Standard Deviation 48.2 fL (35.1-46.3); Red Blood Cell Count 4.87 M/mm3 (3.80-5.20); White Blood Cell Count 8.24 K/mm3 (4.00-11.30)
[2020-12-08 16:26] LABS: BASOPHILS ABSOLUTE MAN 0.08 K/mm3 (0.00-0.23); BASOPHILS PERCENT MAN 1 % (0-2); EOSINOPHILS ABSOLUTE MAN 0.16 K/mm3 (0.00-0.68); EOSINOPHILS PERCENT MAN 2 % (0-6); LYMPHOCYTES ABSOLUTE MAN 1.81 K/mm3 (0.84-5.20); LYMPHOCYTES PERCENT MAN 22 % (21-46); MONOCYTES ABSOLUTE MAN 1.07 K/mm3 (0.16-1.47); MONOCYTES PERCENT MAN 13 % (4-13); SEG NEUTROPHILS PERCENT MAN 62 % (41-73); TOTAL CELLS COUNTED 100
== END | disposition home or self-care (01) ==
LOC: LAB SHORT 13:00 → LAB 13:00
PROVIDERS: Nurse Practitioner
DX: S00.83XA Contusion of other part of head, initial encounter (principal)
CPT/HCPCS: 80053; 84100; 85007; 85027

== ENCOUNTER 2020-12-31 09:27 | Emergency (ER) | payer OTHER ==
[~2020-12-31] VITALS: Ht 154.9 cm; Wt 47.6 kg
== END 2020-12-31 12:53 | disposition home or self-care (01) ==
LOC: ER 09:27
DX: S70.02XA Contusion of left hip, initial encounter (principal); S60.222A Contusion of left hand, initial encounter; Z72.89 Other problems related to lifestyle; W18.30XA Fall on same level, unspecified, initial encounter; Z88.0 Allergy status to penicillin; Z88.8 Allergy status to other drugs, medicaments and biological substances; Z88.1 Allergy status to other antibiotic agents; Z88.5 Allergy status to narcotic agent; Z79.899 Other long term (current) drug therapy; Z86.73 Personal history of transient ischemic attack (TIA), and cerebral infarction without residual deficits; J44.9 Chronic obstructive pulmonary disease, unspecified; I10 Essential (primary) hypertension; E03.9 Hypothyroidism, unspecified; F17.210 Nicotine dependence, cigarettes, uncomplicated
CPT/HCPCS: 73120; 73502; 99283-25; A9270

== ENCOUNTER → 2021-07-14 | Outpatient (CLI) | payer OTHER | END | disposition home or self-care (01) | LOC: LAB SHORT 09:30 → LAB 09:30 | DX: R05.9 Cough, unspecified (principal) | CPT/HCPCS: 87070; 87205 ==

== ENCOUNTER 2021-09-20 11:51 | Emergency (ER) | payer OTHER ==
[~2021-09-20] VITALS: Ht 162.6 cm; Wt 52.2 kg
[2021-09-20] MEDS ORDERED: Zofran4 MG PO (16:26)
[2021-09-20] MEDS ORDERED: HYDR1TAB94 PO (16:26)
== END 2021-09-20 16:43 | disposition home or self-care (01) ==
LOC: ER 11:51
DX: S29.011A Strain of muscle and tendon of front wall of thorax, initial encounter (principal); S29.012A Strain of muscle and tendon of back wall of thorax, initial encounter; J44.9 Chronic obstructive pulmonary disease, unspecified; I10 Essential (primary) hypertension; E03.9 Hypothyroidism, unspecified; F17.210 Nicotine dependence, cigarettes, uncomplicated; V48.5XXA Car driver injured in noncollision transport accident in traffic accident, initial encounter; Z88.0 Allergy status to penicillin; Z88.5 Allergy status to narcotic agent; Z88.8 Allergy status to other drugs, medicaments and biological substances; Z79.899 Other long term (current) drug therapy; Z86.73 Personal history of transient ischemic attack (TIA), and cerebral infarction without residual deficits
CPT/HCPCS: 71046; 72125; 96372; 99284-25; A9270; J1170

== ENCOUNTER 2022-01-08 13:35 | Emergency (ER) | payer OTHER ==
[~2022-01-08] VITALS: Ht 167.6 cm; Wt 53.5 kg
[~2022-01-08 13:35] MED LIST changes: -LAMO100
[2022-01-08] MEDS ORDERED: ONDA4ODT MM (19:17)
[2022-01-08] MEDS ORDERED: OXAYDO5 M1 PO ×2 (19:17→19:19)
== END 2022-01-08 19:35 | disposition home or self-care (01) ==
LOC: ER 13:35
DX: M80.08XA Age-related osteoporosis with current pathological fracture, vertebra(e), initial encounter for fracture (principal); F17.210 Nicotine dependence, cigarettes, uncomplicated; F31.9 Bipolar disorder, unspecified; Z88.5 Allergy status to narcotic agent; Z88.8 Allergy status to other drugs, medicaments and biological substances; Z88.0 Allergy status to penicillin; Z79.899 Other long term (current) drug therapy; W18.30XA Fall on same level, unspecified, initial encounter; Z86.73 Personal history of transient ischemic attack (TIA), and cerebral infarction without residual deficits
CPT/HCPCS: 72070; 72100; 72170; 96374; 99283-25; A9270; J1170

== ENCOUNTER 2022-01-30 14:21 | Inpatient (IN) | payer OTHER ==
[~2022-01-30] VITALS: Ht 167.6 cm; Wt 44.5 kg
[~2022-01-30 14:21] MED LIST changes: +OXAYDO5 M1 PO
[2022-01-30 15:52] LABS: Hematocrit 45.4 % (33.0-51.0); Hemoglobin 15.5 g/dL (11.5-16.0); Mean Corpuscular HGB 31.2 pg (26.0-34.0); Mean Corpuscular HGB Conc 34.1 g/dL (31.5-36.5); Mean Corpuscular Volume 91 fL (80-100); Mean Platelet Volume 11.1 fL (9.1-12.4); Platelet Count 399 K/mm3 (150-400); RDW Coefficient Variation 14.6 % (11.7-14.2); RDW Standard Deviation 48.9 fL (35.1-46.3); Red Blood Cell Count 4.97 M/mm3 (3.80-5.20); White Blood Cell Count 16.11 K/mm3 (4.00-11.30)
[2022-01-30 16:08] LABS: Albumin, Blood 2.5 g/dL (3.4-5.0); Albumin/Globulin Ratio 0.5 (0.8-1.8); Bilirubin, Total 0.7 mg/dL (0.1-1.0); Bun/Creatinine Ratio 36.1 (12.0-20.0); Calcium, Blood 9.3 mg/dL (8.5-10.1); Creatinine, Blood 0.72 mg/dL (0.40-1.00); Globulin, Blood 4.9 g/dL (2.2-4.0); Potassium, Blood 4.3 mmol/L (3.5-5.5); Total Protein, Blood 7.4 g/dL (6.4-8.2)
[2022-01-30 16:19] LABS: BASOPHILS PERCENT MAN 0 % (0-2); EOSINOPHILS ABSOLUTE MAN 0.32 K/mm3 (0.00-0.68); EOSINOPHILS PERCENT MAN 2 % (0-6); LYMPHOCYTES ABSOLUTE MAN 1.93 K/mm3 (0.84-5.20); LYMPHOCYTES PERCENT MAN 12 % (21-46); MONOCYTES ABSOLUTE MAN 2.09 K/mm3 (0.16-1.47); MONOCYTES PERCENT MAN 13 % (4-13); NEUTROPHILS ABSOLUTE MAN 11.76 K/mm3 (1.96-9.15); SEG NEUTROPHILS PERCENT MAN 73 % (41-73); TOTAL CELLS COUNTED 100
--- NOTE | 2022-01-31 04:30 | NUR ---
SHIFT SUMMARY PT ER ADMIT THIS SHIFT FOR INTRA ABDOMINAL ABCESS. PT REPORTS LOSS OF APPETITE AND WEIGHT LOSS OF MORE THAN 20 LBS WITHOUT TRYING. PT CACHECTIC IN APPEARANCE. ABD IS DISTENDED, AND PT IS PAINFUL WITH THE SLIGHTEST MOVEMENT. PT HAS BEEN MEDICATED PER EMAR. PT INITALLY WAS RECEIVING FENTANYL FOR PAIN BUT IT WAS NOT SUFFICIENT IN CONTROLLING PAIN, PROVIDER NOTIFIED AND IV DILAUDID ORDERED, WHICH HAS WORKED BETTER IN CONTROLLING PAIN. PLAN IS FOR SURGICAL CONSULT. PT HAS BEEN NPO SINCE ADMISSION, IVF INFUSING. PT A LITTLE HYPERTENSIVE, DR. MONTAGUE AWARE. NO ACUTE CHANGES SINCE ADMISSION. BED IN LOWEST POSITION, CALL LIGHT WITHIN REACH.
[2022-01-31 06:01] LABS: BASOPHILS ABSOLUTE AUTO 0.06 K/mm3 (0.00-0.23); BASOPHILS PERCENT AUTO 1 % (0-2); EOSINOPHILS ABSOLUTE AUTO 0.05 K/mm3 (0.00-0.68); EOSINOPHILS PERCENT AUTO 0 % (0-6); Hematocrit 45.2 % (33.0-51.0); IMMATURE GRAN ABSOLUTE AUTO 0.09 K/mm3 (0.00-0.10); IMMATURE GRAN PERCENT AUTO 1 % (0-1); LYMPHOCYTES ABSOLUTE AUTO 1.71 K/mm3 (0.84-5.20); LYMPHOCYTES PERCENT AUTO 14 % (21-46); MONOCYTES PERCENT AUTO 15 % (4-13); Mean Corpuscular HGB Conc 33.2 g/dL (31.5-36.5); Mean Corpuscular Volume 93 fL (80-100); Mean Platelet Volume 10.7 fL (9.1-12.4); NEUTROPHILS ABSOLUTE AUTO 8.55 K/mm3 (1.96-9.15); NEUTROPHILS PERCENT AUTO 70 % (41-73); Platelet Count 382 K/mm3 (150-400); RDW Coefficient Variation 14.6 % (11.7-14.2); Red Blood Cell Count 4.84 M/mm3 (3.80-5.20); White Blood Cell Count 12.26 K/mm3 (4.00-11.30)
[2022-01-31 06:17] LABS: Albumin, Blood 2.3 g/dL (3.4-5.0); Albumin/Globulin Ratio 0.5 (0.8-1.8); Bilirubin, Total 0.7 mg/dL (0.1-1.0); Bun/Creatinine Ratio 23.7 (12.0-20.0); Calcium, Blood 8.8 mg/dL (8.5-10.1); Creatinine, Blood 0.8 mg/dL (0.40-1.00); Globulin, Blood 4.8 g/dL (2.2-4.0); Potassium, Blood 3.6 mmol/L (3.5-5.5); Total Protein, Blood 7.1 g/dL (6.4-8.2)
--- NOTE | 2022-01-31 17:11 | NUR ---
SUMMARY PT VSS T/O SHIFT. MEDICATED PER ORDERS FOR PAIN. PT RATES PAIN 10/10 CONSISTENTLY. ABLE TO SLEEP BETWEEN DOSES OF PAIN MEDS. DR CA IN TO SEE PT THIS AFTERNOON. PT MAY HAVE CLEAR LIQUIDS. PLAN FOR MULTIPLE ENEMAS AND MIRALAX THIS EVENING. CALL LIGHT IN REACH.
[2022-02-01 05:26] LABS: Hematocrit 39.6 % (33.0-51.0); Hemoglobin 12.6 g/dL (11.5-16.0); Mean Corpuscular HGB 30.8 pg (26.0-34.0); Mean Corpuscular HGB Conc 31.8 g/dL (31.5-36.5); Mean Corpuscular Volume 97 fL (80-100); Mean Platelet Volume 11.1 fL (9.1-12.4); Platelet Count 298 K/mm3 (150-400); RDW Standard Deviation 53.5 fL (35.1-46.3); Red Blood Cell Count 4.09 M/mm3 (3.80-5.20); White Blood Cell Count 12.57 K/mm3 (4.00-11.30)
[2022-02-01 05:46] LABS: Bun/Creatinine Ratio 15.8 (12.0-20.0); Calcium, Blood 7.5 mg/dL (8.5-10.1); Creatinine, Blood 0.76 mg/dL (0.40-1.00); Potassium, Blood 3.2 mmol/L (3.5-5.5)
--- NOTE | 2022-02-01 05:53 | NUR ---
SHIFT SUMMARY BOWEL CARE HAS BEEN INITIATED FOR SEVERE CONSITPATION, SHE RECEIVED TWO FLEET ENEMA'S ON MY SHIFT AND ONE ENEMA ON DAYSHIFT, PT HAS HAD THREE BM'S THIS SHIFT, MOSTLY LIQUID BROWN STOOL. SHE REFUSED MIRALAX. MOVING HER BOWELS HAS SEEMED TO HELP WITH ABD PAIN PT HAS ONLY NEEDED TO BE MEDICATED FOR PAIN X1 THIS SHIFT. PT HAS BEEN LETHARGIC THIS SHIFT, SLEEPING MOST OF THE NIGHT. SHE AWAKES EASILY AND ANSWERS MY QUESTIONS APPROPRIATELY. 1 PERSON MODERATE ASSIST TO BEDSIDE COMMODE WITH FWW. VITALS STABLE. BED IN LOWEST POSITION, CALL LIGHT WITHIN REACH.
--- NOTE | 2022-02-01 14:12 | NUR ---
1400 to radiology via wheelchair
--- NOTE | 2022-02-01 16:03 | NUR ---
to radiology via wheelchair
--- NOTE | 2022-02-01 17:31 | NUR ---
PT DROWSY THROUGHOUT DAY AND MEDICATED SPARINGLY HAS FALLEN ASLEEP WHILE ON COMMODE AND WHILE HOLDING A CUP OF WATER MEDICATED X1 FOR ABD PAIN 11/27. JESUS SMALL AMOOUNTS OF CLEAR LIQUIDS WITHOUT NAUSEA. LIQUID STOOL AFTER ENEMA. ABD REMAINS FIRM AND TENDER TO LIGHT PALPATION
[2022-02-02 05:13] LABS: Bun/Creatinine Ratio 9.2 (12.0-20.0); Calcium, Blood 7.4 mg/dL (8.5-10.1); Creatinine, Blood 0.76 mg/dL (0.40-1.00); Potassium, Blood 3.1 mmol/L (3.5-5.5)
--- NOTE | 2022-02-02 06:56 | NUR ---
SUMMARY NO NEW ISSUES NOTED. PT HAS SLEPT THROUGHOUT SHIFT. PT DISCOMFORT TX WELL. PT UP IN CHAIR WITH INCREASED COMFORT. PT NPO AT MN. CALL LIGHT IN REACH.
--- NOTE | 2022-02-02 10:25 | NUR ---
TO DAY SURGERY VIA BED
--- NOTE | 2022-02-02 11:57 | NUR ---
02/02/22 115Deb Ge SCHEDULED ZOSYN 4.5 GM GIVEN AT 1142 BY ANESTHESIA
--- NOTE | 2022-02-02 16:49 | NUR ---
1430RETURNED TO ROOM VIA BED FROM PACU WITH AT BEDSIDE. PT LYING WITH EYES CLOSED, OPENS EYES TO VERBAL STIMULI. MOANING AND SAYING STOMACH HURTS. EDEN MIDLINE TO ABD. DRESSING CLEAN DRY AND INTACT AND GREEN LIGHT SHOWING ON EDEN. LUNGS DIMINISHED THROUGHOUT AND PATIENT TAKING SHALLOW RESPIRATIONS. PT ENCOURAGED TO DEEP BREATHE BUT DOES NOT FOLLOW INSTRUCTION AT THIS TIME.
--- NOTE | 2022-02-02 17:15 | NUR ---
pt restless, making occassional attempt to get oob and states she wants to go home. pt cooperative with repositioning in bed, oriented to person, place and that she had surgery today. bed alarm in place. wayne dressing clean, dry and intact to midline abd. cont biox in place and staying greater than 90%
[2022-02-02] MEDS ORDERED: B-121000 MCG PO (21:49)
[2022-02-02] MEDS ORDERED: Nicoderm Cq1 EACH TOP (21:51)
--- NOTE | 2022-02-03 04:45 | NUR ---
LYING IN SEMI FOWLERS WITH EYES CLOSED. DROWSY BUT AROUSABLE AND ABLE TO FOLLOW COMMANDS. ORIENTED TO SELF, SPOUSE JULIA, AND FACT THAT SHE IS IN THE HOSPITAL BUT STATES, "I HAVE NO IDEA WHY I'M HERE." NURSING REORIENTED HER TO ROOM, POST OP STATUS, AND OUTCOME OF SX. VOICES UNDERSTANDING, BUT STATES SHE MAY NOT REMEMBER LATER. O2 AT 1L/NC MAINTAINING O2 SAT AT >90% UNTIL SHALLOW ORAL BREATHS, THEN QUICKLY DESATS TO 70'S. REITERATION TO BREATH THROUGH NOSE HELPS TO RETURN SAT TO >90%. MIDLINE ABD EDEN DRESSING IS C/D/I WITH 2 X 0.5CM SPOTS OF SHADOWING NOTED ALSO MIDLINE. EDEN IS PATENT, DRESSING IS FULLY COMPRESSED TO ABD. DENIES PAIN AT THIS TIME, PAIN MEDS ADMINISTERED PER EMAR. HYPERACTIVE JOSÉ LUIS TONES NOTED AT START OF SHIFT. INCONTINENT OF BLADDER, [place]OW CATH IS PATENT, DRAINING CLEAR YELLOW URINE TO GRAVITY. SCD'S TO BLE. DENIES FURTHER NEEDS OR WANTS AT THIS TIME. SAFETY MEASURES IN PLACE. WILL CONTINNUE TO MONITOR AND GIVE HAND OFF TO ONCOMING SHIFT USING SBAR DURING BEDSIDE REPORT.
[2022-02-03 05:25] LABS: Mean Corpuscular HGB 31.2 pg (26.0-34.0); Mean Corpuscular HGB Conc 33.3 g/dL (31.5-36.5); Mean Corpuscular Volume 94 fL (80-100); Platelet Count 383 K/mm3 (150-400); RDW Standard Deviation 51.8 fL (35.1-46.3); Red Blood Cell Count 4.17 M/mm3 (3.80-5.20); White Blood Cell Count 25.77 K/mm3 (4.00-11.30)
[2022-02-03 06:03] LABS: Bun/Creatinine Ratio 8.6 (12.0-20.0); Calcium, Blood 7.6 mg/dL (8.5-10.1); Creatinine, Blood 0.7 mg/dL (0.40-1.00); Potassium, Blood 4.1 mmol/L (3.5-5.5)
--- NOTE | 2022-02-03 12:50 | NUR ---
TURNED O2 DOWN TO 1L THIS AM AT 1130. MAINTINING >95% TURNED O2 OFF AT 1200 MAINTAINING >94%. WILL CONTINUE TO MONITOR
--- NOTE | 2022-02-03 18:07 | NUR ---
DISCUSSED INC H/R AND RESP RATE WITH CHARGE AND DR CORONADO. PT LOC CONTINUES SLOW BUT STEADY. PT DENIES MUCH PAIN. REF PAIN MED. NO NEW ORDERS.
--- NOTE | 2022-02-03 18:26 | NUR ---
PT PLEASANT TODAY. MILD ELEVATED H/R AND RESP. PT DENIES INCREASED PAIN. REFUSED PAIN MED. NO NEW DR ORDERS. CONTINUES TO BE A/O X3, BUT SLOW TO RESPOND. SAME AT AM. DID WEAN AND REMOVE O2 TODAY. JESUS WELL. >94% . LUNGS CLEAR UPPER AND DIM BASES TODAY. PRESENTLY HAS SOME RATTLEY IN MIDLINE UPER CHEST AIRWAY. IMPROVES WITH COUGH. S/O IN ROOM TO VISIT TODAY. NO OTHER CONCERNS NOTED. BED IN LOW POSITION, CALL LITE IN REACH, BED ALARM ON FOR SAFETY
--- NOTE | 2022-02-04 03:45 | NUR ---
SHIFT SUMMARY POD2 TRANSVERSE RESECTION, MIDLINE PICCO DRESSING IN PLACE WITH LIGHT SHADOWING IN TWO SMALL SPOTS. PATIENT TAKES IN MINIMAL PO CL. ABLE TO SWALLOW PILLS WHOLE WITH WATER ONE AT A TIME. REPORTS NO FLATUS, [place] PATENT AND DRAINING CLEAR YELLOW URINE. PATIENT IS A TURN Q2 WITH PILLOWS FLOATING BONY PROMINENCES FOR PROTECTION.MEDICATED X1 FOR PAIN. PATIENT IS AOX4 RESPONSES ARE SLOW. USES CALL LIGHT APPROPRIATELY. VSS. WILL REPORT TO DAY RN.
[2022-02-04 04:46] LABS: BASOPHILS ABSOLUTE AUTO 0.05 K/mm3 (0.00-0.23); BASOPHILS PERCENT AUTO 0 % (0-2); EOSINOPHILS PERCENT AUTO 0 % (0-6); Hematocrit 33.1 % (33.0-51.0); IMMATURE GRAN ABSOLUTE AUTO 0.39 K/mm3 (0.00-0.10); IMMATURE GRAN PERCENT AUTO 2 % (0-1); LYMPHOCYTES ABSOLUTE AUTO 0.88 K/mm3 (0.84-5.20); LYMPHOCYTES PERCENT AUTO 4 % (21-46); MONOCYTES ABSOLUTE AUTO 0.54 K/mm3 (0.16-1.47); MONOCYTES PERCENT AUTO 3 % (4-13); Mean Corpuscular HGB 30.8 pg (26.0-34.0); Mean Corpuscular HGB Conc 33.2 g/dL (31.5-36.5); Mean Corpuscular Volume 93 fL (80-100); Mean Platelet Volume 10.1 fL (9.1-12.4); NEUTROPHILS ABSOLUTE AUTO 19.39 K/mm3 (1.96-9.15); NEUTROPHILS PERCENT AUTO 91 % (41-73); Platelet Count 325 K/mm3 (150-400); RDW Coefficient Variation 14.8 % (11.7-14.2); RDW Standard Deviation 51.2 fL (35.1-46.3); Red Blood Cell Count 3.57 M/mm3 (3.80-5.20); White Blood Cell Count 21.25 K/mm3 (4.00-11.30)
[2022-02-04 05:30] LABS: Albumin, Blood 1.5 g/dL (3.4-5.0); Anion Gap 4 mmol/L (6-16); Blood Urea Nitrogen 9 mg/dL (8-24); Bun/Creatinine Ratio 13.1 (12.0-20.0); CO2, Blood 24 mmol/L (21-32); Calcium, Blood 7.9 mg/dL (8.5-10.1); Chloride, Blood 119 mmol/L (98-108); Creatinine, Blood 0.69 mg/dL (0.40-1.00); Glomerular Filtration Rate 92 (60-); Glucose, Blood 96 mg/dL (70-99); Magnesium, Blood 1.5 mg/dL (1.6-2.4); Phosphorus, Blood 2.3 mg/dL (2.5-4.9); Potassium, Blood 3.5 mmol/L (3.5-5.5); Sodium, Blood 147 mmol/L (136-145)
--- NOTE | 2022-02-04 09:30 | NUR ---
PATIENT DECLINED HELP WITH BREAKFAST & PUTTING DENTURES IN. UPON RETURN TO ROOM, PATIENT STILL HAD YET TO PUT DENTURES IN, DECLINED ASSIATNCE AGAIN. DECLINED TO GET UP IN A CHAIR, EVEN WITH MAX ASSIST. VERY LITTLE MOTIVATION NOTED. DISCUSSED RISKS OF STAYING IN BED FOR SUCH PERIODS OF TIME. DISCUSSED USE OF INCENTIVE SPIROMETER AND DEEP BREATHING. PATIENT VERBALIZED UNDERSTANDING ALTHOUGH UNABLE TO DEMONSTRATE.
--- NOTE | 2022-02-04 13:30 | NUR ---
FAMILY MEMEBER AT BEDSIDE. THIS RN DISCUSSED NUTRITION AND PO INTAKE WITH FAMILY MEMBER, AGREED TO ASSIST IN ENCOURAGING PO INTAKE PATIENT HAS BEEN RELUCTANT TO TAKE IN PO FLUIDS WITH STAFF.
--- NOTE | 2022-02-04 16:18 | NUR ---
THIS RN AGAIN DISCUSSED USE OF INCENTVE SPIROMETER AND ENCOURAGED DEEP BREATHING & COUGHING. PATIENT DEMONSTARTED ONE DEEP RBEATH WELL, BUT THEN RETURNED TO SHALLOW BREATHING. LUNGS SOUND COURSE AT THIS TIME T/O. CAN HEAR CONGESTION DURING BREATHING.
--- NOTE | 2022-02-04 17:39 | NUR ---
SHIFT SUMMARY PATIENT IS POD 2 TRANSVERSE RESECTION. MIDLINE ABDOMINAL INCISION W/ EDEN DRESSING, NO NEW DRAINAGE. PATIENT HAS HAD POOR PO INTAKE AND REFUSES TO GET UP TO EDGE OF BED OR CHAIR. VERY MINIMAL MOTIVATION NOTED THIS SHIFT. Q2 TURNS PATIENT ALLOWS. PLAN FOR PT/OT EVALS TOMORROW, WELL PEECH EVAL D/T PATIENT HAVING DIFFICULTY WITH MEDICATIONS. ENCOURAGED INCENTIVE SPIROMETER, DEEP BREATHING, & COUGHING T/O SHIFT. PATIENT VERBALIZES AGREEMENT, HOWEVER, SHOWS MINIMAL EFFORTS. VERY WITHDRAWM AND FLAT. PALLIATIVE CARE CONSULT ALSO ENTERED FOR ADVANCED CARE PLANNING. CALL LIGHT IN REACH. WILL REPORT TO ONCOMING RN AT 1900.
[2022-02-05 05:24] LABS: Albumin, Blood 1.6 g/dL (3.4-5.0); Anion Gap 8 mmol/L (6-16); Blood Urea Nitrogen 8 mg/dL (8-24); Bun/Creatinine Ratio 12.3 (12.0-20.0); CO2, Blood 20 mmol/L (21-32); Calcium, Blood 8.3 mg/dL (8.5-10.1); Chloride, Blood 117 mmol/L (98-108); Creatinine, Blood 0.65 mg/dL (0.40-1.00); Glomerular Filtration Rate 93 (60-); Glucose, Blood 106 mg/dL (70-99); Magnesium, Blood 1.9 mg/dL (1.6-2.4); Potassium, Blood 3.7 mmol/L (3.5-5.5); Sodium, Blood 145 mmol/L (136-145)
[2022-02-05 06:03] LABS: Hematocrit 36.8 % (33.0-51.0); Hemoglobin 12.2 g/dL (11.5-16.0); Mean Corpuscular HGB Conc 33.2 g/dL (31.5-36.5); Mean Corpuscular Volume 93 fL (80-100); Mean Platelet Volume 10.1 fL (9.1-12.4); Platelet Count 339 K/mm3 (150-400); RDW Coefficient Variation 15.1 % (11.7-14.2); RDW Standard Deviation 52.3 fL (35.1-46.3); Red Blood Cell Count 3.94 M/mm3 (3.80-5.20); White Blood Cell Count 18.62 K/mm3 (4.00-11.30)
--- NOTE | 2022-02-05 06:10 | NUR ---
SHIFT SUMMARY POD 3-TRANSVERSE BOWEL RESECTION. MIDLINE EDEN DRESSING, INTACT, A FEW SMALL DIME SIZE SHADOWING. HYPOACTIVE BT. DENIES ANY FLATUS, NO BM, HAS POOR PO INTAKE, REPORTS 6/10 LLQ ABD PAIN-MEDICATED 1X c 0.25MG DILAUDID & PT REPORTED PAIN RELIEF. VERY WEAK, FATIGUED, DECONDITIONED. AOX4, SOFT SPEECH, SLOW TO RESPOND BUT ABLE TO ANSWER APPROPRIATE IF NOT DYSPNIC. TELE ST HR 100-120. SPO2 DROPS TO 82-86% ON RA & SPO2 >92% ON 2.5L O2, DOESNT WEAR O2 @BASELINE. BREATH SOUNDS COARSE T/O, HAS WEAK MOIST CONGESTED NONPRODUCTIVE COUGH, REPORTS FEELING DYSPNIC, LABOURED BREATHING @TIMES c ABD ACCESSORY MUSCLE USE, RR 20-30. SLOWED NS TO TKO SINCE PT WET SOUNDING & TOLERATING SMALL SIPS FLUID. HAS DEPENDEDNT EDEMA IN BILAT ARMS & THIGHS. GOT PT UP TO RECLINER THIS AM, 2 MAX c GB & FWW. CALL LIGHT IN REACH, WILL MONITOR.
--- NOTE | 2022-02-05 08:37 | NUR ---
DR. CORONADO ROUNDED DISCUSSED MOIST LUNG SOUNDS, EDEMA, AND POSITIVE FLUID BALANCE. PLAN TO HOLD IV FLUIDS AND GIVE LASIX AT THIS TIME.
--- NOTE | 2022-02-05 10:10 | NUR ---
PT STATUS UPDATE AFTER SPEECH THERAPY ASSESSED PT DIETARY CONSULT WAS REQUESTED AND JERRELL BARAHONA DIETITIAN WAS NOTIFIED OF CONSULT. DISCUSSED NUTRITION OPTIONS, [facility] CORONADO AND DIETITIAN. OSBALDO STACY RN CONTACTED FOR PICC LINE PLACEMENT. FLUIDS DC'D R/T CONCERN FOR FLUID OVERLOAD. PALLIATIVE CARE CONSULTED AND MALCOLM ROUNDED ON PT. WILL CONTINUE TO MONITOR.
--- NOTE | 2022-02-05 17:18 | NUR ---
pt fragile and short of breath this am. Lasix given with positive response. pt very anxious and frail. pt SO in to visit and we reviewed the past year. She has been mostly non ambulatory and struggling to eat since her false teeth dont fit well. She has declined more since the back fracture. will follow up with PT on prognosis. pt kps score is 50%. address code status with her in future. pt high risk for readmission. Review of tpn with her SO and will update speech therapy on her denture issues.
--- NOTE | 2022-02-05 19:43 | NUR ---
WINSLOW CATH REMOVAL PT PULLED WINSLOW CATH. SANDRA MICHELLE FOUND THAT PT PULLED HER WINSLOW CATH OUT AT APPROXIMATELY 1640. ATTENDS PLACED. WINSLOW CATH LEFT OUT AT THIS TIME.
--- NOTE | 2022-02-05 20:04 | NUR ---
SHIFT SUMMARY PT IS POD#3 FROM TRANSVERSE SIGMOID COLECTOMY. PT DENIES PASSING FLATUS BUT IS AN UNRELIABLE HISTORIAN. PT HAS BEEN ALERT AND ORIENTED X3 BUT IS IMPULSIVE AT TIMES, BED ALARM IN PLACE. PT GIVEN IV LASIX TODAY, TOLERATED WELL, GOOD OUTPUT, IMPROVED O2 SATURATION AND RESP EFFORT APPEARS IMPROVED. PT STARTED ON TPN TODAY AFTER PICC LINE WAS PLACED. PT IS NPO R/T ASPIRATION RISK. PT WORKED WITH PT/OT AND GOT OOB TO THE CHAIR THIS AM. REPORT GIVEN TO JOYCE DANIELLE.
[2022-02-06 06:50] LABS: BASOPHILS ABSOLUTE AUTO 0.04 K/mm3 (0.00-0.23); BASOPHILS PERCENT AUTO 0 % (0-2); EOSINOPHILS ABSOLUTE AUTO 0.12 K/mm3 (0.00-0.68); EOSINOPHILS PERCENT AUTO 1 % (0-6); Hemoglobin 11.7 g/dL (11.5-16.0); IMMATURE GRAN ABSOLUTE AUTO 0.08 K/mm3 (0.00-0.10); IMMATURE GRAN PERCENT AUTO 1 % (0-1); LYMPHOCYTES ABSOLUTE AUTO 1.03 K/mm3 (0.84-5.20); LYMPHOCYTES PERCENT AUTO 7 % (21-46); MONOCYTES ABSOLUTE AUTO 0.68 K/mm3 (0.16-1.47); MONOCYTES PERCENT AUTO 5 % (4-13); Mean Corpuscular HGB 31.3 pg (26.0-34.0); Mean Corpuscular HGB Conc 34.4 g/dL (31.5-36.5); Mean Corpuscular Volume 91 fL (80-100); Mean Platelet Volume 10.1 fL (9.1-12.4); NEUTROPHILS ABSOLUTE AUTO 13.23 K/mm3 (1.96-9.15); NEUTROPHILS PERCENT AUTO 87 % (41-73); Platelet Count 323 K/mm3 (150-400); RDW Coefficient Variation 14.6 % (11.7-14.2); RDW Standard Deviation 48.5 fL (35.1-46.3); Red Blood Cell Count 3.74 M/mm3 (3.80-5.20); White Blood Cell Count 15.18 K/mm3 (4.00-11.30)
[2022-02-06 07:13] LABS: Albumin, Blood 1.6 g/dL (3.4-5.0); Anion Gap 5 mmol/L (6-16); Blood Urea Nitrogen 14 mg/dL (8-24); CO2, Blood 31 mmol/L (21-32); Calcium, Blood 8.2 mg/dL (8.5-10.1); Chloride, Blood 108 mmol/L (98-108); Creatinine, Blood 0.74 mg/dL (0.40-1.00); Glomerular Filtration Rate 86 (60-); Glucose, Blood 139 mg/dL (70-99); Magnesium, Blood 1.7 mg/dL (1.6-2.4); Phosphorus, Blood 3.2 mg/dL (2.5-4.9); Sodium, Blood 144 mmol/L (136-145); Triglycerides 126 mg/dL (30-160)
--- NOTE | 2022-02-06 07:22 | NUR ---
SHIFT SUMMARY AOX4. MORE ALERT & AWAKE THEN PREVIOUS NIGHT. POD 4-TRANSVERSE BOWEL RESECTION. MIDLINE EDEN DRESSING c MORE SHADOWING THEN PREVIOUS NIGHT, SOME YELLOW IN COLOR, OTHERWISE EDEN INTACT & c SUCTION. REPORTS INCREASED ABD PAIN 8-10/10, MEDICATED c FENTANYL PER ORDERS, NOTICED INCREASE IN ABD DISTENTION COMPARED TO PREVIOUS NIGHT, ABD FIRM & VERY TENDER TO PALPATE, HYPOACTIVE BT, DENIES PASSING ANY GAS SINCE SURGERY, DENIES N/V, CURRENTLY NPO. RECIEVING TPN @55ML/HR. VSS. TELE ST HR 105. SPO2 >90% ON 2L, OCC DESATS TO 87% BUT RECOVERS AFTER ENCOURAGING PT TO COUGH. BREATH SOUNDS DIM c SCATTERED EXP WHEEZES @BEGINNING OF SHIFT, AFTER MIDNIGHT BS BECAME COARSE T/O c LABOURED BREATHING & ABD ACCESSORY MUSCLE USE, INFORMED DR ARCINIEGA & SHE ORDERED CHEST XRAY. PT ALSO HAS WEAK MOIST NONPRODUCTIVE COUGH. HAS BEEN VOIDING FREQUENTLY & CONTINENT. CALL LIGHT IN REACH & PT HAS BEEN USING APPROPRIATELY.
--- NOTE | 2022-02-06 09:30 | NUR ---
DR. CORONADO ROUNDED ON PT. HE WAS NOTIFIED OF ELEVATED SBP OF 169. CRACKLES IN THE LUNGS AND CONTINUED MOIST VOICE QUALITY. HE WAS ALSO NOTIFIED OF POTASSIUM LEVEL, PER DR. CORONADO OK FOR DIETARY TO REPLACE POTASSIUM IN TPN. JERRELL BARAHONA DIETITIAN NOTIFIED. WILL CONTINUE TO MONITOR.
--- NOTE | 2022-02-06 09:55 | NUR ---
PT DESATURATED TO MID 80'S. O2 INCREASED TO 3L AND PT ENCOURAGED TO COUGHT AND DEEP BREATHE. O2 SATURATION IMPROVED TO 90-92%. CHEST XRAY RESULT REVIEWED, SPOKE WITH DR. CORONADO AND LASIX WAS ORDERED. AM DOSE OF 40MG WAS ORIGINALLY HELD; AFTER XRAY REPORT RETURNED LASIX 20MG IV GIVEN PER DR. CORONADO.
--- NOTE | 2022-02-06 14:16 | NUR ---
PT'S FAMILY REPORTS A HX OF VIT B12 DEFICIENCY, WITH SUPPLEMENTATION. DR. CORONADO NOTIFIED OF THIS CONCERN.
--- NOTE | 2022-02-06 17:50 | NUR ---
PT ASSISTED TO USE IS AND FLUTTER VALVE.
[2022-02-07 05:24] LABS: Hematocrit 35.3 % (33.0-51.0); Mean Corpuscular HGB 30.8 pg (26.0-34.0); Mean Corpuscular Volume 91 fL (80-100); Mean Platelet Volume 10.6 fL (9.1-12.4); Platelet Count 293 K/mm3 (150-400); RDW Coefficient Variation 14.5 % (11.7-14.2); RDW Standard Deviation 47.9 fL (35.1-46.3); White Blood Cell Count 14.39 K/mm3 (4.00-11.30)
--- NOTE | 2022-02-07 06:51 | NUR ---
SHIFT SUMMARY NO ACUTE CHANGES NOTED, PT REMAINS A&O X3, FORGETFUL AT TIMES, BED ALARM IS ON FOR SAFETY, PT HAS CALLED FOR ASSISTANCE PRN THROUGH THE NIGHT, VSS, SPO2 >92% ON 3L O2 VIA NC, LUNGS REMAIN COARSE/DIM BALATERAL, DB&C ENC, I/S ENC WELL PT HAS A WEAK COUGH BUT HAS ATTEMPTED TO CLEAR SECRETIONS. NPO, TPN INFUSING PER EMAR, VOIDING WNL, 1 ASSIST TO BSC, PASSING SMALL AMOUNTS OF FLATUS, A FEW SPOTS OF STOOL NOTED IN COMMODE, BS ACTIVE X4, PAIN MNGD WITH TYLENOL SUPP, RESTING QUIETLY AT THIS TIME, CALL LIGHT IN REACH, REPORT GIVEN TO DAY RN,
[2022-02-07 07:08] LABS: Magnesium, Blood 1.9 mg/dL (1.6-2.4)
[2022-02-07 07:12] LABS: Bun/Creatinine Ratio 29.7 (12.0-20.0); Calcium, Blood 8.2 mg/dL (8.5-10.1); Creatinine, Blood 0.67 mg/dL (0.40-1.00); Phosphorus, Blood 3.4 mg/dL (2.5-4.9); Potassium, Blood 3.3 mmol/L (3.5-5.5)
--- NOTE | 2022-02-07 18:23 | NUR ---
SHIFT SUMMARY PT POD #5 FOR TRANSVERSE BOWEL RESECTION. PT REMAINS ON PPN BUT HER DIET HAS BEEN ADVANCED TO MECH SOFT. PT NOT TOLERATING DIET WELL AND HAS EXPERIENCED INCREASED PAIN AND NAUSEA. PT DID HAVE A LARGE BM IN THE BSC AND CONTINUES TO HAVE FREQUENT/URGENT URINATION. PT MEDICATED PER EMR WITH GOOD EFFECT.
--- NOTE | 2022-02-07 20:27 | NUR ---
FAMILY UPDATE PT HAD CALLED HER TO VENT ABOUT HER CARE. SHE WAS UPSET ABOUT HER HOME MEDS BEING HELD & NOT RECIEVING MORE PAIN MEDICATIONS. PT IS MORE ALERT & ORIENTED TODAY THAN SHE WAS LAST NIGHT. SHE WAS EDUCATED ON THE HEALING PROCESS AND PAIN MED REGIMEN, SHE WAS ALSO INFORMED OF WHY THE PHYSICIANS DECIDED TO HOLD HER HOME MEDS. PT WAS RE-EVALUATED BY ST TODAY AND HER DIET HAS BEEN ADVANCED, RESP STATUS HAS IMPROVED WELL HER MENTAL STATE. PT'S WAS INFORMED OF HER PROGRESS AND STATED THAT SHE MAY NEED A NICOTINE PATCH WELL. PT HAS CALMED DOWN & IS CURRENTLY WATCHING TV, RESP UNLABORED, SPO2 95% ON 3L O2 VIA NC, CALL LIGHT IN REACH, BED ALARM IS ON. WCTM AND MEDICATE PER EMAR PRN.
--- NOTE | 2022-02-08 04:52 | NUR ---
SHIFT SUMMARY A/O X3, FORGETFUL AT TIMES. POD6 TRANSVERSE COLECTOMY- MIDLINE EDEN INTACT, SCANT AMOUNT OF DRIED DRAINAGE. RESTED THROUGHOUT THE NIGHT. INCONTINENT VOIDS, CHANGED PRN. LOOSE INCONTINENT BM. MINIMAL PAIN REPORTED- REPOSITIONED PRN. NO NAUSEA/VOMITING REPORTED. SINUS TACH REPORTED FROM TELE. VITAL STABLE, 3L NC TO KEEP 02 ABOVE 90. WILL CONTINUE TO MONITOR AND REPORT TO ONCOMING RN.
[2022-02-08 06:20] LABS: Bun/Creatinine Ratio 37.8 (12.0-20.0); Calcium, Blood 8.3 mg/dL (8.5-10.1); Creatinine, Blood 0.66 mg/dL (0.40-1.00); Phosphorus, Blood 3.3 mg/dL (2.5-4.9); Potassium, Blood 4.4 mmol/L (3.5-5.5)
--- NOTE | 2022-02-08 18:39 | NUR ---
PT PAINFUL THROUGHOUT SHIFT, DISCUSSED PATIENTS PAIN LEVEL ON PHYSICIAN ROUNDS WITH DR ROBERTSON. PT OOB TO CHAIR WITH STANDBY ASSIST AND STATES SHE IS FEELING STRONGER THAN YESTERDAY. PT DENIES NAUSEA BUT REPORTS POOR APPETITE, NO COUGHING OR CHOKING ON NECTAR THICK LIQUIDS. PUREWICK IN PLACE WITH CLEAR YELLOW URINE OUTPUT. EDEN IN PLACE MIDLINE TO ABD
--- NOTE | 2022-02-09 05:36 | NUR ---
BACKUP ADMINISTRATIVE COORDINATOR SUMMARY PT AAOX3, PLEASANT BUT FORGETFUL AT TIMES. CONTINUES ON TPN @ 55 ML/HR. PT ABLE TO TAKE MEDS WITH THICKENED WATER THIS AM BUT WAS TOO NAUSEAS TO TAKE BEDTIME MEDS. MEDICATED WITH ZOFRAN. PT CONTINUES TO HAVE ABD PAIN, MOSTLY TO THE L SIDE. PT REQUESTING PAIN MEDS BEFORE NEXT MED AVAILABLE SO SPOKE WITH DR CORONADO AND GOT THE OK TO CHANGE FENTANYL ORDER FROM Q4 TO Q3. PT HAS BEEN ABLE TO SLEEP FOR AN HOUR OR TWO AT A TIME BETWEEN PAIN MEDS. VSS, WILL CONTINUE TO MONITOR.
[2022-02-09 05:52] LABS: Bun/Creatinine Ratio 32.2 (12.0-20.0); Calcium, Blood 8.8 mg/dL (8.5-10.1); Creatinine, Blood 0.68 mg/dL (0.40-1.00); Magnesium, Blood 2.4 mg/dL (1.6-2.4); Phosphorus, Blood 3.6 mg/dL (2.5-4.9)
--- NOTE | 2022-02-09 09:18 | NUR ---
PUREWICK APPLIED AFTER ZEUS CARE COMPLETED, NO SKIN REDNESS NOTED IN ZEUS AREA
[2022-02-09 10:05] LABS: BASOPHILS ABSOLUTE AUTO 0.07 K/mm3 (0.00-0.23); BASOPHILS PERCENT AUTO 0 % (0-2); EOSINOPHILS ABSOLUTE AUTO 0.23 K/mm3 (0.00-0.68); EOSINOPHILS PERCENT AUTO 1 % (0-6); Hematocrit 37.9 % (33.0-51.0); Hemoglobin 12.8 g/dL (11.5-16.0); IMMATURE GRAN ABSOLUTE AUTO 0.25 K/mm3 (0.00-0.10); IMMATURE GRAN PERCENT AUTO 1 % (0-1); LYMPHOCYTES ABSOLUTE AUTO 1.54 K/mm3 (0.84-5.20); LYMPHOCYTES PERCENT AUTO 9 % (21-46); MONOCYTES ABSOLUTE AUTO 1.35 K/mm3 (0.16-1.47); MONOCYTES PERCENT AUTO 8 % (4-13); Mean Corpuscular HGB 31.8 pg (26.0-34.0); Mean Corpuscular HGB Conc 33.8 g/dL (31.5-36.5); Mean Corpuscular Volume 94 fL (80-100); Mean Platelet Volume 10.7 fL (9.1-12.4); NEUTROPHILS ABSOLUTE AUTO 13.94 K/mm3 (1.96-9.15); NEUTROPHILS PERCENT AUTO 80 % (41-73); Platelet Count 452 K/mm3 (150-400); RDW Coefficient Variation 14.5 % (11.7-14.2); RDW Standard Deviation 50.3 fL (35.1-46.3); Red Blood Cell Count 4.03 M/mm3 (3.80-5.20); White Blood Cell Count 17.38 K/mm3 (4.00-11.30)
--- NOTE | 2022-02-09 12:02 | NUR ---
dr anderson to see patient and removed wayne dressing. katarzyna intact, no drainage. medipore dressing applied
--- NOTE | 2022-02-09 18:05 | NUR ---
PT STATES SHE IS HAVING IMPROVED PAIN CONTROL WITH PO ULTRAM. MEDICATED PER REQUEST FOR NAUSEA. PT REPORTS SHE HAS "THROWN UP" THOUGH WAS NOTED TO BE COUGHING AND SPIT INTO EMESIS BAG.ABD DRESSING CLEAN, DRY AND INTACT. TPN AT 55 ML/HR TO PICC. PT UP TO CHAIR WITH STANDBY ASSIST. PT WITH VERY POOR PO INTAKE STATES HAS NO APPETITE. TAKING SIPS OF NON THICKENED WATER WITHOUT COUGHING OR CHOKING.
--- NOTE | 2022-02-10 05:32 | NUR ---
SHIFT SUMMARY PT A&OX4, AND COOPERATIVE WITH CARE. MEDICATING FOR PAIN PER EMAR. PT DID HAVE SOME NAUSEA, BUT IT PASSED AFTER RECEIVING PAIN MEDICATION. 1-ASSIST TO BSC. HAD A LIQUIDY BM. PT STILL HAS POOR PO INTAKE, STATING NO APPETITE. TPN @ 55ML/HR. CALL LIGHT WITHIN REACH.
[2022-02-10 06:17] LABS: BASOPHILS ABSOLUTE AUTO 0.07 K/mm3 (0.00-0.23); BASOPHILS PERCENT AUTO 1 % (0-2); EOSINOPHILS ABSOLUTE AUTO 0.25 K/mm3 (0.00-0.68); EOSINOPHILS PERCENT AUTO 2 % (0-6); Hemoglobin 11.4 g/dL (11.5-16.0); IMMATURE GRAN ABSOLUTE AUTO 0.22 K/mm3 (0.00-0.10); IMMATURE GRAN PERCENT AUTO 2 % (0-1); LYMPHOCYTES ABSOLUTE AUTO 2.13 K/mm3 (0.84-5.20); LYMPHOCYTES PERCENT AUTO 14 % (21-46); MONOCYTES ABSOLUTE AUTO 1.73 K/mm3 (0.16-1.47); MONOCYTES PERCENT AUTO 12 % (4-13); Mean Corpuscular HGB 30.8 pg (26.0-34.0); Mean Corpuscular HGB Conc 33.5 g/dL (31.5-36.5); Mean Corpuscular Volume 92 fL (80-100); Mean Platelet Volume 10.5 fL (9.1-12.4); NEUTROPHILS ABSOLUTE AUTO 10.35 K/mm3 (1.96-9.15); NEUTROPHILS PERCENT AUTO 70 % (41-73); Platelet Count 476 K/mm3 (150-400); RDW Standard Deviation 46.7 fL (35.1-46.3); White Blood Cell Count 14.75 K/mm3 (4.00-11.30)
[2022-02-10 06:39] LABS: Bun/Creatinine Ratio 47.9 (12.0-20.0); Calcium, Blood 8.8 mg/dL (8.5-10.1); Creatinine, Blood 0.71 mg/dL (0.40-1.00); Phosphorus, Blood 4.2 mg/dL (2.5-4.9); Potassium, Blood 5.1 mmol/L (3.5-5.5)
--- NOTE | 2022-02-10 14:53 | NUR ---
Spiritual Care Visit. Pt/Nurse request Pt. is awake in bed and welcomes my visit. Pt. is pleasant and engaging, but is unsettled about her health symptoms. Pt. verbalized that she felt she was improving, until the last couple of days. Facilitate a life reviewm and establish rapport. Prayed with Pt. Pt. verbalized gratitude for the spiritual care visit. Updated nurse Janis on the Pts. response to my visit.
--- NOTE | 2022-02-10 16:27 | NUR ---
SHIFT SUMMARY: POD 8 TRANSVERSE COLECTOMY WITHOUT OSTOMY PATIENT IS A&OX4. VS ARE WNL AND IS ON RA AT THIS TIME WITH >90% OXYGEN SATS ACCORDING TO BIOX MACHINE. HER ABD MIDLINE HAS A MEDIPORT THAT IS C/D/I. PATIENT HAD INCREASING NAUSEA AND PAIN ON HER ABD (MORE SPECIFICALLY THE LEFT SIDE) THIS MORNING. DR. CABEZAS ORDERED AN ABD AND PELVIC CT WHICH SHOWS MULTIPLE ABCESSES AND IS CONTINUING IV ABX. DR. ROBLES WAS NOTIFED AND REQUESTED A CT GUIDED DRAIN TO BE PLACED WHEN POSSIBLE. PATIENTS PAIN AND NAUSEA SEEMED TO IMPROVE AFTER IV ZOFRAN, IV FENTANYL, AND TRAMADOL PO. ONCE PATIENT HAD DECREASED PAIN AND NAUSEA SHE WAS ABLE TO TOLERATE SMALL AMOUNTS OF PO FLUIDS AND ALSO WAS REQUESTING MAC+CHEESE/BANANA/FRUIT CUP FOR DINNER TONIGHT. PATIENT IS VOIDING/PASSING GAS/HAVING BMS. CALLS APPROPRIATELY. CALL LIGHT WITHIN REACH. THE PLAN IS TO HAVE A CT GUIDED DRAIN(S) PLACED WHEN POSSIBLE AND TO CONTINUE IV ABX, PAIN MANAGEMENT, AND INCREASING NUTRITION INTAKE ORALLY WHEN APPROPRIATE.
--- NOTE | 2022-02-10 16:55 | NUR ---
PATIENT REQUESTED A PUREWICK TO BE PLACED SINCE SHE IS IN SO MUCH PAIN AND STATED "I JUST PEE WAY TOO MUCH TO KEEP GETTING UP AND DOWN...PLUS IT MAKES MY PAIN WORSE!". CALLED DR. CABEZAS AND SHE APPROVED OF THE PUREWICK TO BE PLACED. PATIENT NOW HAS PUREWICK INSIDE OF HER DEPENDS BETWEEN HER LABIA WITH CONTINUOUS SUCTION ON. PATIENT STATED AFTERWARDS "I ALREADY FEEL MORE COMFORTABLE". CALL LIGHT WITHIN REACH.
--- NOTE | 2022-02-11 05:28 | NUR ---
SHIFT SUMMARY PT A&OX4, AND COOPERATIVE WITH CARE. NO ACUTE CHANGES, VSS. PAIN BEING MANAGED WITH ULTRAM/FENTANYL. PT STILL HAS LITTLE APPETITE. REPLACED PUREWICK AT 0200 AND SET TO CONT SUCTION. CONT BIOX AT BEDSIDE, SATS >90 ON RA. TPN AT 55ML/HR. MEDIPORT DRESSING TO MIDLINE INCISION C/D/I. CALLS APPROPRIATELY, CALL LIGHT WITHIN REACH.
[2022-02-11 09:29] LABS: International Normalized Ratio 1.08; Prothrombin Time Results 11.3 Sec (9.7-11.5)
--- NOTE | 2022-02-11 10:57 | NUR ---
pt out of room to radiology for drain placement at this time.
--- NOTE | 2022-02-11 17:05 | NUR ---
SHIFT SUMMARY SIGMOID COLECTOMY ON 02/02/22 PT WAS UNABLE TO HAVE DRAIN PLACED TODAY. PAIN HAS BEEN MANAGED PER EMAR TO SUCCESS. PT HAS BEEN IN A POSITIVE MOOD TODAY AND ENCOURAGED TO KEEP GETTING BETTER. PUREWICK IN PLACE. PT HAS HAD MINIMAL APPETITE T/O SHIFT TOLERATING LIQUIDS WELL.
--- NOTE | 2022-02-12 05:21 | NUR ---
SHIFT SUMMARY PT A&OX4, AND COOPERATIVE WITH CARE. NO ACUTE CHANGES. MEDICATING FOR PAIN WITH ULTRAM/FENTANYL. PT STILL CONTINUES TO HAVE LITTLE APPETITE, TOLERATES SIPS OF FLUIDS. PUREWICK IN PLACE AND COLLECTION HEAD CHANGED OUT. CONT BIOX AT BEDSIDE, SATS >90 ON RA. MEDIPORT DRESSING ON MIDLINE INCISION, C/D/I. TPN @55ML/HR. CALLS APPROPRIATELY, CALL LIGHT WITHIN REACH.
[2022-02-12 08:46] LABS: BASOPHILS ABSOLUTE AUTO 0.04 K/mm3 (0.00-0.23); BASOPHILS PERCENT AUTO 0 % (0-2); EOSINOPHILS ABSOLUTE AUTO 0.07 K/mm3 (0.00-0.68); EOSINOPHILS PERCENT AUTO 1 % (0-6); Hematocrit 32.6 % (33.0-51.0); Hemoglobin 11.1 g/dL (11.5-16.0); IMMATURE GRAN ABSOLUTE AUTO 0.18 K/mm3 (0.00-0.10); IMMATURE GRAN PERCENT AUTO 1 % (0-1); LYMPHOCYTES PERCENT AUTO 9 % (21-46); MONOCYTES ABSOLUTE AUTO 1.69 K/mm3 (0.16-1.47); MONOCYTES PERCENT AUTO 12 % (4-13); Mean Corpuscular HGB 30.9 pg (26.0-34.0); Mean Corpuscular Volume 91 fL (80-100); Mean Platelet Volume 10.7 fL (9.1-12.4); NEUTROPHILS ABSOLUTE AUTO 10.61 K/mm3 (1.96-9.15); NEUTROPHILS PERCENT AUTO 76 % (41-73); Platelet Count 574 K/mm3 (150-400); RDW Coefficient Variation 13.8 % (11.7-14.2); RDW Standard Deviation 45.9 fL (35.1-46.3); Red Blood Cell Count 3.59 M/mm3 (3.80-5.20); White Blood Cell Count 13.89 K/mm3 (4.00-11.30)
[2022-02-12 09:08] LABS: Bun/Creatinine Ratio 46.5 (12.0-20.0); Creatinine, Blood 0.62 mg/dL (0.40-1.00); Potassium, Blood 4.5 mmol/L (3.5-5.5)
--- NOTE | 2022-02-12 12:26 | NUR ---
REFUSAL OF CARE PT HAD REFUSED THERAPY & MORNING MEDICATIONSSHE IS TATING THAT SHE IS DONE WITH EVERYTHING AND DOES NOT WANT TO PARTICIPATE IN CARE ANY LONGER. EDU & ENC PROVIDED, PT'S WAS UPDATED. PT WAS MOVED TO ROOM 211, SHE EXCEPTED A SHOWER AND IS CURRENTLY SITTING UP AT THE BEDSIDE IN A RECLINER. CALL LIGHT IN REACH
--- NOTE | 2022-02-12 17:27 | NUR ---
CARE CONSULT WITH ANDRE DANIELLE. SHE REPORTS PT HAS NOT BEEN OPEN TO TAKING ALL HER MEDICATIONS, DECLINING PT/OT, UNCONTROLLED PAIN AND REFUSING TO EAT. RN REPORTS PT WAS MOVED FROM 216 TO 211 AND HAS BEEN DOING BETTER. PT HAS BEEN MORW COOPERATIVE, TOOK A SHOWER AND A COUPLE BITES OF FOOD. MET WITH PT IN THE ROOM SHE IS LAYING SUPINE IN BED, ALERT AND COOPERATIVE. SHE REPORTS THAT HER BIGGEST FRUSTRATION IS PAIN CONTROL AND NOT KNOWING WHATS GOING ON. SHE ADMITS THAT SHE HAS BEEN "DIFFICULT" BY REFUSING HER MEDICATIONS AND REFUSING THERAPY. SHE REPORTS SHE HAD A "MELT DOWN" THIS MORNING IN REGARDS TO ONGOING PAIN, NAUSEA AND UNABLE TO SLEEP AT NIGHT R/O BEING WOKEN UP FOR MEDICATIONS. PROVIDED EDUCATION ON THE IMPORTANCE OF TAKING ALL MEDICATIONS INCLUDING THE LOVENOX FOR INCREASED RISK OF DEVELOPING BLOOD CLOTS AND SHE VU. ADDITIONALLY THAT IT IS IMPORTANT TO TRANSITION FROM IV PAIN MEDCATION TO PO MEDICATION SO SHE IS ABLE TO MANAGE HER PAIN AT HOME. PT IS COOPERATIVE, ENGAGED IN THE CONVERSATION AND REPORTS THAT SHE TOTALLY UNDERSTANDS AND FEELS THAT SHE HAS COME TO AN UNDERSTANDING WITH THE TEAM ABOUT THE MEDICATION AND TREATMENT PLAN AND WILL STOP REFUSING MEDICATIONS, THERAPY AND WILL TRY TO EAT MORE. ADVISED TO CONTACT PALLIATIVE CARE IF SHE HAS ADDITIONAL QUESTIONS AND THAT I WILL CONTINUE TO MAKE VISITS TO CHECK ON HER, SHE VU AND IS APPRECIATIVE FOR MY VISIT. PALLIATIVE CARE WILL CONTINUE FOLLOW AND OFFER SUPPORT.
--- NOTE | 2022-02-12 18:35 | NUR ---
SUMMARY PT WAS TRANSFERRED TO ROOM 211 THIS MORNING, SHE WAS SHOWERED AND SAT UP IN THE CHAIR FOR APPROX 2 HOURS. PT'S CAME IN TO VISIT TODAY. PALLIATIVE CARE IN TO SPEAK WITH PT, NO UPDATES ON THE CONVERSATION YET. PT HAS BEEN REFUSING HER MEDS & THERAPY, PT HAS BEEN EDU ABOUT THE RISK'S. SHE STATED "I DON'T GIVE A DAMN" "JUST GIVE ME MY PAIN MEDS AND LEAVE ME ALONE". PT WAS ENC TO KEEP UP ON HER PO PAIN MEDS. NO OTHER CHANGES NOTED THROUGH THE DAY. PT IS CURRENTLY RESTING IN BED, CALL LIGHT IN REACH.
--- NOTE | 2022-02-13 05:18 | NUR ---
SHIFT SUMMARY PT A&OX4. NO ACUTE CHANGES. MEDICATING FOR PAIN WITH ULTRAM/FENTANYL. APPETITE REMAINS POOR. VOIDING USING THE BEDPAN, NO BM, ATTENDS IN PLACE FOR OCCASIONAL INCONT. TOLERATING SIPS OF FLUIDS WITH MEDICATIONS. MEDIPORT DRESSING ON MIDLINE INCISION C/D/I. TPN @55ML/HR. CALLS APPROPRIATELY CALL LIGHT WITHIN REACH.
[2022-02-13 06:07] LABS: BASOPHILS ABSOLUTE AUTO 0.03 K/mm3 (0.00-0.23); BASOPHILS PERCENT AUTO 0 % (0-2); EOSINOPHILS ABSOLUTE AUTO 0.09 K/mm3 (0.00-0.68); EOSINOPHILS PERCENT AUTO 1 % (0-6); Hematocrit 30.3 % (33.0-51.0); Hemoglobin 10.4 g/dL (11.5-16.0); IMMATURE GRAN ABSOLUTE AUTO 0.12 K/mm3 (0.00-0.10); IMMATURE GRAN PERCENT AUTO 1 % (0-1); LYMPHOCYTES ABSOLUTE AUTO 1.33 K/mm3 (0.84-5.20); LYMPHOCYTES PERCENT AUTO 10 % (21-46); MONOCYTES ABSOLUTE AUTO 1.36 K/mm3 (0.16-1.47); MONOCYTES PERCENT AUTO 10 % (4-13); Mean Corpuscular HGB 31.1 pg (26.0-34.0); Mean Corpuscular HGB Conc 34.3 g/dL (31.5-36.5); Mean Corpuscular Volume 91 fL (80-100); Mean Platelet Volume 10.2 fL (9.1-12.4); NEUTROPHILS ABSOLUTE AUTO 10.17 K/mm3 (1.96-9.15); NEUTROPHILS PERCENT AUTO 78 % (41-73); Platelet Count 606 K/mm3 (150-400); RDW Coefficient Variation 13.7 % (11.7-14.2); Red Blood Cell Count 3.34 M/mm3 (3.80-5.20)
[2022-02-13 06:32] LABS: Anion Gap 6 mmol/L (6-16); Blood Urea Nitrogen 27 mg/dL (8-24); Bun/Creatinine Ratio 39.2 (12.0-20.0); CO2, Blood 26 mmol/L (21-32); Calcium, Blood 8.5 mg/dL (8.5-10.1); Chloride, Blood 101 mmol/L (98-108); Creatinine, Blood 0.69 mg/dL (0.40-1.00); Glomerular Filtration Rate 92 (60-); Glucose, Blood 124 mg/dL (70-99); Potassium, Blood 4.3 mmol/L (3.5-5.5); Sodium, Blood 133 mmol/L (136-145); Triglycerides 177 mg/dL (30-160)
--- NOTE | 2022-02-13 11:05 | NUR ---
Spiritual Care Visit. Pt. is in bed and welcomes my visit. Pt. verbalizes recognizing this boat operator from his visit before the holiday. Re- established rapport. Pt. is had been unsettled by pain and nausea, but verbalized gratitude for the medical treatment today that has minimized her discomfort. Pt. verbalized gratitude for the spiritual reflection she had her heard last Saturday. Discussed matters of shanika and mormon. Prayed with Pt. Pt. displayed evidence of being engaged and aware of her treatment and care. Pt. verbalized gratitude for the spiritual care she received.
[2022-02-14 05:00] LABS: BASOPHILS ABSOLUTE AUTO 0.03 K/mm3 (0.00-0.23); BASOPHILS PERCENT AUTO 0 % (0-2); EOSINOPHILS ABSOLUTE AUTO 0.14 K/mm3 (0.00-0.68); EOSINOPHILS PERCENT AUTO 1 % (0-6); Hematocrit 28.6 % (33.0-51.0); Hemoglobin 9.7 g/dL (11.5-16.0); IMMATURE GRAN ABSOLUTE AUTO 0.07 K/mm3 (0.00-0.10); IMMATURE GRAN PERCENT AUTO 1 % (0-1); LYMPHOCYTES ABSOLUTE AUTO 1.54 K/mm3 (0.84-5.20); LYMPHOCYTES PERCENT AUTO 15 % (21-46); MONOCYTES ABSOLUTE AUTO 1.23 K/mm3 (0.16-1.47); MONOCYTES PERCENT AUTO 12 % (4-13); Mean Corpuscular HGB 30.9 pg (26.0-34.0); Mean Corpuscular HGB Conc 33.9 g/dL (31.5-36.5); Mean Corpuscular Volume 91 fL (80-100); Mean Platelet Volume 10.4 fL (9.1-12.4); NEUTROPHILS PERCENT AUTO 70 % (41-73); Platelet Count 683 K/mm3 (150-400); RDW Coefficient Variation 13.9 % (11.7-14.2); RDW Standard Deviation 45.8 fL (35.1-46.3); Red Blood Cell Count 3.14 M/mm3 (3.80-5.20); White Blood Cell Count 10.01 K/mm3 (4.00-11.30)
[2022-02-14 05:19] LABS: Bun/Creatinine Ratio 45.1 (12.0-20.0); Calcium, Blood 8.7 mg/dL (8.5-10.1); Creatinine, Blood 0.82 mg/dL (0.40-1.00); Potassium, Blood 4.1 mmol/L (3.5-5.5)
--- NOTE | 2022-02-14 06:12 | NUR ---
SHIFT SUMMARY NO ACUTE CHANGES TO REPORT OVERNIGHT. PT HAS SLEPT MOST OF THE NIGHT, SHE IS STILL REQUIRING TORADOL FOR INTERMITTENT ABD PAIN, MOSTLY WITH MOVEMENT. IV NUTRITION INFUSING. PT FORGETFUL DOES NOT USE CALL LIGHT, AND WILL ATTEMPT TO GET OOB WITHOUT CALLING. BED ALARM IN PLACE. DRESSING INTACT TO ABD, BED IN LOWEST POSITION, CALL LIGHT WITHIN REACH.
--- NOTE | 2022-02-14 08:30 | NUR ---
INITIAL ASSESSMENT: Patient is awake sitting up in bed, she is alert and oriented. She is having some pain this morning she rates at an 8/10, tramadol given. HRR. LS Dim in the bases, pt encouraged to use IS. Biox WNL on RA. BT hyperactive and slightly distended, she has a midline incision with a medipore dressing, CDI. PPP. VSS. AM meds given whole with applesauce. Patient denies other needs at this time. Therapy is here to work with her. Call light in reach.
--- NOTE | 2022-02-14 16:01 | NUR ---
MET WITH PT, SHE IS LAYING SUPINE IN BED, GRIMACING AND C/O ABD PAIN. PT REPORTS SHE IS NOW HAVING DIAHREA AND CONSTANTLY GETTING OUT OF BED TO HAVE BM HAS BEEN HARD. PT REPORTS HER APPETITE IS STILL POOR, BUT SHE IS TRYING TO EAT HER YOGURT WITH BANACHIPS AND SIPPING ON FLUIDS. SHE REPORTS THE NURSES ARE MEDICATING HER FOR PAIN MUCH THEY CAN AND SHE IS HOPEFUL THAT ONCE HER DIAHREA IMPROVES, HER CRAMPS WILL TOO. CARE COMF WITH RN. PT FEEDING WERE JUST CHANGES AND MEDICATING WITH SIMETHICON. WILL SEE HOW PT DOES THROUGHT THE NIGHT AND FOLLOW UP TOMORROW. PALLIATIVE CARE WILL CONTINUE TO FOLLOW AND OFFER SUPPORT.
--- NOTE | 2022-02-14 16:08 | NUR ---
Update: Patient has been painful T/O the morning, she has been medicated with Tramadol, Fentanyl, and Toradol. I gave her Zofran for nausea. She has been given a K-Pad for discomfort also. She has been having diarrhea, banana flakes in yogurt, to help with diarrhea-she has only taken bites. Pt is also C/O pain R/T gas, simethcone has been ordered and offered to the patient. Patient denies other needs at this time. Call light in reach. Report given to Jocelynn DANIELLE. Patient had updated CT of ABD this morning, it appears the abdominal abcesses have been decreasing.
--- NOTE | 2022-02-14 17:06 | NUR ---
SHIFT SUMMARY: POD 12 BOWEL RESECTION NO SIGNIFICANT CHANGES. PATIENT REPORTS PAIN BEING 10/10 AND HAS RECIEVED IV TORADOL, IV FENTANYL, AND PO TRAMADOL WITH LITTLE TO NO IMPROVEMENT. A K-PAD HAS ALSO BEEN APPLIED TO HER ABD WITH ONLY LITTLE RELIEF. ABD MIDLINE HAS MEDIPORE DRESSING THAT IS C/D/I. ABD IS TENDER TO TOUCH BUT HAS HYPERACTIVE BOWEL TONES. SHE TOLERATES ONLY SMALL SIPS OF PO LIQUIDS. PATIENT IS VOIDING AND HAVING MULTIPLE LOOSE BMS. SHE IS INDEP. TO THE [facility] [place] AND IS A SBA WITH FWW AND GAIT BELT WITH AMBULATION. PATIENT HAS IV CPN RUNNING THROUGH HER PICC LINE IN HER PARUL. CALLS APPROPRIATELY. CALL LIGHT WITHIN REACH. THE PLAN IS TO CONTINUE IV ABX AND MANAGE PAIN WELL ENCOURAGE PO NUTRITION.
--- NOTE | 2022-02-15 03:48 | NUR ---
SHIFT SUMMARY NO ACUTE CHANGES TO REPORT OVERNIGHT. PT STILL VERY PAINFUL WITH MOVEMENT, PT STILL HAVING LOOSE STOOLS ABD PAIN AND CRAMPING. MEDICATING FOR PAIN PER EMAR. DRESSING INTACT TO ABD, DRY AND INTACT. POOR PO INTAKE, CPN INFUSING. IV ANTIBIOTICS CONTINUED. SHE HAS BEEN AMBULATING INDEPENDENTLY TO THE [facility] [place] AND IS STEADY ON FEET.
[2022-02-15 04:38] LABS: BASOPHILS ABSOLUTE AUTO 0.04 K/mm3 (0.00-0.23); BASOPHILS PERCENT AUTO 0 % (0-2); EOSINOPHILS ABSOLUTE AUTO 0.17 K/mm3 (0.00-0.68); EOSINOPHILS PERCENT AUTO 1 % (0-6); Hematocrit 26.4 % (33.0-51.0); Hemoglobin 9.1 g/dL (11.5-16.0); IMMATURE GRAN ABSOLUTE AUTO 0.08 K/mm3 (0.00-0.10); IMMATURE GRAN PERCENT AUTO 1 % (0-1); LYMPHOCYTES ABSOLUTE AUTO 1.35 K/mm3 (0.84-5.20); LYMPHOCYTES PERCENT AUTO 10 % (21-46); MONOCYTES ABSOLUTE AUTO 1.17 K/mm3 (0.16-1.47); MONOCYTES PERCENT AUTO 9 % (4-13); Mean Corpuscular HGB 31.3 pg (26.0-34.0); Mean Corpuscular HGB Conc 34.5 g/dL (31.5-36.5); Mean Corpuscular Volume 91 fL (80-100); Mean Platelet Volume 10.2 fL (9.1-12.4); NEUTROPHILS ABSOLUTE AUTO 10.16 K/mm3 (1.96-9.15); NEUTROPHILS PERCENT AUTO 78 % (41-73); Platelet Count 790 K/mm3 (150-400); RDW Coefficient Variation 13.9 % (11.7-14.2); RDW Standard Deviation 45.8 fL (35.1-46.3); Red Blood Cell Count 2.91 M/mm3 (3.80-5.20); White Blood Cell Count 12.97 K/mm3 (4.00-11.30)
[2022-02-15 05:06] LABS: Albumin, Blood 1.7 g/dL (3.4-5.0); Anion Gap 7 mmol/L (6-16); Blood Urea Nitrogen 39 mg/dL (8-24); Bun/Creatinine Ratio 49.4 (12.0-20.0); CO2, Blood 27 mmol/L (21-32); Calcium, Blood 8.6 mg/dL (8.5-10.1); Chloride, Blood 104 mmol/L (98-108); Creatinine, Blood 0.79 mg/dL (0.40-1.00); Glomerular Filtration Rate 79 (60-); Glucose, Blood 113 mg/dL (70-99); Magnesium, Blood 2.6 mg/dL (1.6-2.4); Phosphorus, Blood 4.2 mg/dL (2.5-4.9); Potassium, Blood 4.3 mmol/L (3.5-5.5); Sodium, Blood 138 mmol/L (136-145)
--- NOTE | 2022-02-15 15:31 | NUR ---
HAVE BEEN UNABLE TO COLLECT STOOL SAMPLE THIS SHIFT IS URINATING WITH STOOL
--- NOTE | 2022-02-15 17:48 | NUR ---
unable to collect sample for c diff as patient has had urine with each stool. pts stools liquid brown with red tinge. pt reports abd pain throughout shift which has been 5/10 at the least painful time. pt has declined any food and has taken very small amounts of fluid. discussed with pateint need for po intake to help with strength and healing, pt reports having to much abd pain to eat. pt independently transfers self to bedside commode
--- NOTE | 2022-02-15 18:11 | NUR ---
PT HAS DECLINED BANANA FLAKES THROUGHOUT SHIFT
--- NOTE | 2022-02-16 03:41 | NUR ---
0341 HRS: HAVE BEEN UNSUCCESSFUL AT OBTAINING STOOL SAMPLE SO FAR THIS SHIFT. PT HAS USED BSC MULTIPLE TIMES BUT HAS YET TO HAVE A BM. DISCUSSED THE NEED FOR THE SAMPLE WITH THE PATIENT. PT UNDERSTOOD AND WILL ALERT STAFF WHEN SHE IS ABLE TO ATTEMPT TO LEAVE SAMPLE.
[2022-02-16 04:41] LABS: BASOPHILS ABSOLUTE AUTO 0.06 K/mm3 (0.00-0.23); BASOPHILS PERCENT AUTO 1 % (0-2); EOSINOPHILS ABSOLUTE AUTO 0.33 K/mm3 (0.00-0.68); EOSINOPHILS PERCENT AUTO 3 % (0-6); IMMATURE GRAN PERCENT AUTO 1 % (0-1); LYMPHOCYTES ABSOLUTE AUTO 2.02 K/mm3 (0.84-5.20); LYMPHOCYTES PERCENT AUTO 16 % (21-46); MONOCYTES ABSOLUTE AUTO 1.15 K/mm3 (0.16-1.47); MONOCYTES PERCENT AUTO 9 % (4-13); Mean Corpuscular HGB 30.4 pg (26.0-34.0); Mean Corpuscular HGB Conc 33.3 g/dL (31.5-36.5); Mean Corpuscular Volume 91 fL (80-100); Mean Platelet Volume 10.3 fL (9.1-12.4); NEUTROPHILS ABSOLUTE AUTO 8.96 K/mm3 (1.96-9.15); NEUTROPHILS PERCENT AUTO 71 % (41-73); Platelet Count 880 K/mm3 (150-400); RDW Coefficient Variation 13.9 % (11.7-14.2); RDW Standard Deviation 46.1 fL (35.1-46.3); Red Blood Cell Count 2.96 M/mm3 (3.80-5.20); White Blood Cell Count 12.62 K/mm3 (4.00-11.30)
--- NOTE | 2022-02-16 04:41 | NUR ---
0441 HRS: PT ABLE TO HAVE VERY SMALL BM. PT MISSED HAT IN COMMODE AND HAD SMALL AMOUNT OF URINE IN THE ADKINS. STOOL SAMPLE WAS TAKEN. SENT TO LAB. PT UNABLE TO PROVIDE FURTHER SAMPLE OR TRY AGAIN AT THIS TIME.
[2022-02-16 05:03] LABS: Albumin, Blood 1.6 g/dL (3.4-5.0); Anion Gap 5 mmol/L (6-16); Blood Urea Nitrogen 36 mg/dL (8-24); Bun/Creatinine Ratio 39.8 (12.0-20.0); CO2, Blood 27 mmol/L (21-32); Calcium, Blood 8.7 mg/dL (8.5-10.1); Chloride, Blood 106 mmol/L (98-108); Creatinine, Blood 0.91 mg/dL (0.40-1.00); Glomerular Filtration Rate 67 (60-); Glucose, Blood 105 mg/dL (70-99); Phosphorus, Blood 4.1 mg/dL (2.5-4.9); Potassium, Blood 4.6 mmol/L (3.5-5.5); Sodium, Blood 138 mmol/L (136-145)
[2022-02-16 06:31] LABS: C DIFFICILE DNA NEGATIVE (Negative)
--- NOTE | 2022-02-16 06:53 | NUR ---
SHIFT SUMMARY: NO NEW CHANGES OBSERVED T/O THE SHIFT. TOLERATING FLUIDS AND USING BSC. PT IS WEAK AND PAINFUL. MEDICATED PER EMAR ORDERS. PT REPORTED RELIEF FROM MEDICATION BUT STILL REMAINED PAINFUL T/O THE SHIFT. CPN RUNNING, RECEIVING IV ABX. STOOL SAMPLE RECEIVED THIS SHIFT. MIDLINE SURGICAL DRESSING REMAINS C/D/I AT THIS TIME. RESTING AT THIS TIME WITH CALL LIGHT IN REACH. REPORT GIVEN TO DAY TIME RN.
--- NOTE | 2022-02-16 10:05 | NUR ---
Shahriar AM MEDS AND ULTRAM WERE GIVEN AT 0820- DID NOT SHOW UP SUBMITTED ON COMPUTER
--- NOTE | 2022-02-16 16:32 | NUR ---
PT ASLEEP IN THE ROOM WHEN I VISIT. PT FACE IS RELAXED AND BREATHING IS EVEN AND UNLABORED. PT APPEARS TO BE COMFORTABLE. RN HAS NO ISSUES OR CONCERNS. PALLIATIVE CARE WILL CONTINIUE TO FOLLOW AND OFFER SUPPORT.
--- NOTE | 2022-02-16 18:12 | NUR ---
PT REPORTS POOR PAIN CONTROL THROUGHOUT SHIFT, DOES NOT FEEL THAT FENTANYL PATCH HELPED AT ALL. ABD INCISION WITH STERI STRIPS INTACT. PT SHOWERED AND WASHED HAIR WITH MINIMAL ASSIST. PT HAS REFUSED ALL MEALS BEING BROUGHT INTO ROOM-TAKES SIPS OF WATER AND PEPSI AND A FEW BITES OF MAGIC CUP REPORTS INCREASED ABD PAIN AND NAUSEA
--- NOTE | 2022-02-17 05:31 | NUR ---
[facility] SUMMARY NO ACUTE CHANGES THIS SHIFT. PT AAOX4 AND VERY PLEASANT. CONTINUES TO HAVE CONSISTENT ABD PAIN, HOWEVER PT HAS BEEN ABLE TO SLEEP A LARGE PART OF THE SHIFT. MEDICATED WITH TORADOL AND ULTRAM, PT ALSO HAS FENTANYL PATCH IN PLACE. PT STILL HAVING LOOSE STOOLS BUT IS LESS FREQUENT, ONLY HAVING 1 BM TONIGHT. VSS, WILL CONTINUE TO MONITOR.
--- NOTE | 2022-02-17 16:06 | NUR ---
SHIFT SUMMARY NO ACUTE CHANGES THIS SHIFT. PATIENT CONTINUES TO HAVE ABDOMINAL PAIN, DENIES NEED FOR FURTHER MEDICATION THOUGH. STILL NO APPETITE, DRINKING SOME PO LIQUIDS, BUT NOT MUCH. APPETITE STIMULANT STARTED TODAY. AMBULATING WELL TO BATHROOM AND BSC INDEPENDENTLY/SBA. CALLS APPROPRIATELY, WILL REPORT TO ONCOMING RN AT 1900.
--- NOTE | 2022-02-18 04:10 | NUR ---
SHIFT SUMMARY POD17 TRANSVERSE COLECTOMY WITH MIDLINE INCISION ON STERI STRIPS REMAIN CDI. ABD IS DISTENDED. PASSING FLATUS. NO BM DURING SHIFT. REPORTS INCREASING PAIN INTERMITTENTLY. PAIN MANAGED WITH ULTRAM AND FENTANYL 25MCG (ONE TIME). DENIES NAUSEA AND VOMITING. PT ON TPN 55MLS/HR, IV ABX ADMINSITERED. PICC LINE PATENT AND INFUSING. PT HAS BEEN TACHY. POOR APPETITE. MEDS WHOLE WITH APPLESAUCE. IND AT BSC. SBA IN BATHROOM. AOX3. CALLS APPROPRIATELY. CALL LIGHT WITHIN REACH. WILL PROVIDE REPORT TO ONCOMING NURSE.
--- NOTE | 2022-02-18 18:52 | NUR ---
PT SITTING UP IN CHAIR READING A BOOK, STATES SHE HAS FELT SLIGHTLY LESS PAINFUL THIS AFTERNOON AND THAT SHE WAS ABLE TO GET DECENT NAP. PT STATES SHE IS NERVOUS ABOUT CT SCAN BEING DONE TOMORROW AND WHAT IT WILL SHOW
[2022-02-19 05:05] LABS: BASOPHILS ABSOLUTE AUTO 0.05 K/mm3 (0.00-0.23); BASOPHILS PERCENT AUTO 1 % (0-2); EOSINOPHILS ABSOLUTE AUTO 0.38 K/mm3 (0.00-0.68); EOSINOPHILS PERCENT AUTO 4 % (0-6); Hematocrit 25.3 % (33.0-51.0); Hemoglobin 8.5 g/dL (11.5-16.0); IMMATURE GRAN ABSOLUTE AUTO 0.19 K/mm3 (0.00-0.10); IMMATURE GRAN PERCENT AUTO 2 % (0-1); LYMPHOCYTES ABSOLUTE AUTO 1.92 K/mm3 (0.84-5.20); LYMPHOCYTES PERCENT AUTO 19 % (21-46); MONOCYTES ABSOLUTE AUTO 1.14 K/mm3 (0.16-1.47); MONOCYTES PERCENT AUTO 11 % (4-13); Mean Corpuscular HGB 30.6 pg (26.0-34.0); Mean Corpuscular HGB Conc 33.6 g/dL (31.5-36.5); Mean Corpuscular Volume 91 fL (80-100); Mean Platelet Volume 9.7 fL (9.1-12.4); NEUTROPHILS PERCENT AUTO 63 % (41-73); Platelet Count 906 K/mm3 (150-400); RDW Coefficient Variation 13.8 % (11.7-14.2); RDW Standard Deviation 45.2 fL (35.1-46.3); Red Blood Cell Count 2.78 M/mm3 (3.80-5.20); White Blood Cell Count 9.98 K/mm3 (4.00-11.30)
--- NOTE | 2022-02-19 05:22 | NUR ---
SHIFT SUMMARY NO ACUTE CHANGES OVERNIGHT. PT REMAINED (ABD) PAINFUL T/O SHIFT WITH SOME RELIEF AFTER FENTANYL. PT USUALLY FALLS ASLEEP FOR COUPLE HOURS THEN SHE STARTS TO MOAN WITH PAIN AGAIN. PAIN IS ALSO MANAGED WITH ULTRAM. PT TOLERATES PO INTAKE, DENIES N/V. VSS. DENIES CHEST PAIN AND SOB. IND IN THE BSC. VOIDING WITHOUT ISSUE. CPN INFUSING AT 55MLS/HR. PASSING FLATUS. NO BM OVERNIGHT. ABD STILL DISTENDED. PT IS ALSO ANXIOUS FOR HER UPCOMING REPEAT CT, PROVIDE SUPPORT. CALL LIGHT WITHIN REACH. WILL PROVIDE REPORT TO ONCOMING NURSE.
[2022-02-19 05:32] LABS: Bun/Creatinine Ratio 40.9 (12.0-20.0); Calcium, Blood 8.5 mg/dL (8.5-10.1); Creatinine, Blood 0.69 mg/dL (0.40-1.00); Potassium, Blood 4.4 mmol/L (3.5-5.5)
--- NOTE | 2022-02-19 06:28 | NUR ---
0610: PT WENT TO IMAGING FOR CT SCAN 0627: PT IS BACK FROM CT
--- NOTE | 2022-02-19 16:43 | NUR ---
PT IS ALEPP WHEN I ENTER THE ROOM, FACE IS RELAXED AND BREATHING IS EVEN, UNLABORED. PT AWAKENS EASILY WHEN I ENTER THE ROOM. PT REPORTS SHE IS DOING SO MUCH BETTER TODAY, MUCH MORE COMF. PT HAD HER CT TODAY AND SHE REPORTS SHE WAS REALLY NERVOUS ABOUT IT BUT IS HAPPY NOW IT HAS IMPORVED SINCE THE LAST CT. PT REPORTS HER APPETITE IS IMPROVING AND SHE HAS BEEN ABLE TO START PARTICIPATING IN THERAPY. SHE REPORTS HER NAUSEA HAS ALSO RESOLVED. THIS IS THE FIRST VISIT SINCE THE PT HAS BEEN IN THE HOSPITAL THAT HER PAIN IS MANAGED AND SHE FEELS OPTOMISTIC ABOUT HER RECOVERY. PT REPORTS THE PLAN IS STILL FOR HER TO GO HOME ON HOME HEALTH. PALLIATIVE CARE WILL CONTINUE TO FOLLOW AND PROVIDE SUPPORT NEEDED.
--- NOTE | 2022-02-19 17:19 | NUR ---
SHIFT SUMMARY PT IS POD#18. SHE CONTINUES TO HAVE ABD PAIN MANAGED WITH ULTRAM AND FENTANYL. PT IS A SBA WHEN OOB. SHE HAS A DECREASED APPETITE. PT REPORTED NAUSEA THIS EVENING AND WAS GIVEN ZOFRAN.
--- NOTE | 2022-02-19 18:37 | NUR ---
ASSUMED CARE OF PATIENT AT 1730. PATIENT RESTING IN BED. NITA MARIEE ADMINISTERED EVENING MEDS AND STARTED TPN RUNNING.
--- NOTE | 2022-02-20 05:14 | NUR ---
SUMMARY PT REQUIRING PO AND IV BACK UP FOR PAIN CONTROL.NO ACUTE CHANGES TONIGHT.
--- NOTE | 2022-02-20 10:30 | NUR ---
DR. CORONADO CHANGED PT'S PAIN MEDICATION FROM TRAMADOL TO OXYCODONE. PT REPORTED TO THIS RN THAT OXYCODONE CAUSES ITCHING AND SHE DIDNT WANT TO TAKE IT AT THIS TIME. DR. CORONADO WAS NOTIFIED, HARDIK ORDERED, PLAN TO CONTINUE WITH USE OF OXYCODNE. PT WAS AGREABLE TO THIS PLAN FOR PAIN MANAGEMENT.
--- NOTE | 2022-02-20 16:35 | NUR ---
SHIFT SUMMARY PT IS POD# 19 FROM TRANSVERSE COLECTOMY. SHE IS STILL GETTING CPN AND MINIMAL PO INTAKE. PT ENCOURAGED TO EAT MEALS AND COMMUNICATE WITH STAFF IF SHE IS NAUSEATED AT MEALTIME OR NEEDS SNACKS. PAIN MANAGED WITH OXY, TYLENOL AND TORADOL. PT IS A SBA WHEN OOB. WILL MONITOR UNTIL REPORT TO NOC RN.
--- NOTE | 2022-02-21 05:56 | NUR ---
patient walking and up to commode independently, prn medication given for pain. Abdominal steri strip dressing clean, dry, and intact, resp WNL.
--- NOTE | 2022-02-21 11:42 | NUR ---
Spiritual Care Visit Pt. is resting but responds when I enter the room. Pt. is unsettled by inconsistant improvement. Pt. verbalizes thaat she can have good days and bad days, and that today is a bad day. Listen with empathy and a calming presence. Pt. displays evidence of being weaker than previous visits, and increasingly discouraged. Pastoral support is given as well as prayer. Pt. verbalized gratitude for the spiritual care visit and requested this title insurance agent to close the door when I left. I complied.
--- NOTE | 2022-02-21 14:26 | NUR ---
SUMMARY: PT IS S/P COLECTOMY. VSS, A/O. SURGICAL SITE WNL. PT HAD NAUSEA, NO EMESIS THIS MORNING. MEDICATED PER EMAR. NO REPORT OF NAUSEA FOR REST OF SHIFT. PT TAKING IN MINIMAL PO. TPN INFUSING. PT ENCOURAGED IN MOBILITY. PAIN WITH ACTIVITY. PAIN APPEARS TO BE MANAGED WITH ROXICODONE AND TYLENOL PRN, SEE EMAR. NO ACUTE SAFETY CONCERNS.
--- NOTE | 2022-02-22 05:45 | NUR ---
PATIENT GIVEN PRN MEDS FOR PAIN, UP TO BEDSIDE COMMODE INDEPENDENTLY, RESP STATUS WNL, APPETITE IS MINIMAL, DRINKING MINIMAL. VOIDING OK. INCISION CLEAN DRY AND INTACT.
--- NOTE | 2022-02-22 16:13 | NUR ---
MESSAGE LEFT FOR DR ROBERTSON RE WHAT SURGICAL PLAN IS FOR PT.
--- NOTE | 2022-02-22 16:48 | NUR ---
1615 PT LYING WITH EYES CLOSED, MOANING. PT OPENS EYES TO VERBAL STIMULI- REPORTS STABBING ABD PAIN 11/27 .
--- NOTE | 2022-02-22 17:30 | NUR ---
DR ROBERTSON RESPONDED BACK TO MESSAGE RE: SURGICAL PLAN AT [address]. STATED THAT [address] REBOLLEDO IS SANDWICH AND DRINK CART OPERATOR AND THAT I SHOULD CONTACT HIM. SPOKE WITH DR REBOLLEDO [id number] WHO ASKED IF THERE WERE ANY URGENT NEEDS TONIGHT, THERE ARE IS NOT PLAN FOR HIM TO SEE PT TOMORROW. HOSPITALIST UPDATED.
--- NOTE | 2022-02-22 18:24 | NUR ---
SUMMARY PT REPORTS ABD CRAMPING, STABBING PAIN 8-10/10 THROUGHOUT SHIFT, PT SLIGHTLY TEARFUL AND LYING WITH EYES CLOSED AND MOANING INTERMITTENTLY THIS SHIFT. PT REPORTS SHE FEELS WORSE TODAY THEN ON THE PREVIOUS DAY. PT ABD WITHOUT REDNESS OR DRAINAGE, ACTIVE BS X4 QUADS. INCISION INTACT WITH STERI STRIPS IN PLACE. PT HAVING BROWN LIQUID STOOLS THIS SHIFT. PTS HERE TO VISIT AND WILL PLAN TO BRING IN A COUPLE OF FOOD CHOICES FROM HOME FOR PATIENT. PT REQUESTED CHICKEN NOODLE SOUP BUT DECLINED WHEN IT ARRIVED FROM DIETARY. PT HAS HAD NO INTAKE OF MEALS THIS SHIFT AND HAS TAKEN ONLY A FEW SIPS OF VITAWATER AND APPLESAUCE TO TAKE MEDS WITH SPOKE WITH BO BOTELLO RNSENIOR QUALITY METHODS SPECIALIST WHO WILL SPEAK WITH THIS PATIENT ON 02/23/22.
--- NOTE | 2022-02-23 04:29 | NUR ---
ASSUMED CARE ASSUMED CARE OF PATIENT, PT IN NO DISTRESS AT THIS TIME
--- NOTE | 2022-02-23 06:02 | NUR ---
POD21 FROM TRANSVERSE SMALL BOWL RESECTION. VSS. PT HAS SLEPT WELL. PT DENIES PAIN. TOLLERATING MINIMAL PO INTAKE. DENIES ANY NEEDS, CALL LIGHT IN REACH.
[2022-02-23 06:35] LABS: BASOPHILS ABSOLUTE AUTO 0.04 K/mm3 (0.00-0.23); BASOPHILS PERCENT AUTO 0 % (0-2); EOSINOPHILS ABSOLUTE AUTO 0.05 K/mm3 (0.00-0.68); EOSINOPHILS PERCENT AUTO 1 % (0-6); Hematocrit 24.8 % (33.0-51.0); Hemoglobin 8.6 g/dL (11.5-16.0); IMMATURE GRAN ABSOLUTE AUTO 0.07 K/mm3 (0.00-0.10); IMMATURE GRAN PERCENT AUTO 1 % (0-1); LYMPHOCYTES ABSOLUTE AUTO 1.18 K/mm3 (0.84-5.20); LYMPHOCYTES PERCENT AUTO 13 % (21-46); MONOCYTES ABSOLUTE AUTO 0.45 K/mm3 (0.16-1.47); MONOCYTES PERCENT AUTO 5 % (4-13); Mean Corpuscular HGB 31.3 pg (26.0-34.0); Mean Corpuscular HGB Conc 34.7 g/dL (31.5-36.5); Mean Corpuscular Volume 90 fL (80-100); Mean Platelet Volume 10.4 fL (9.1-12.4); NEUTROPHILS ABSOLUTE AUTO 7.39 K/mm3 (1.96-9.15); NEUTROPHILS PERCENT AUTO 81 % (41-73); Platelet Count 604 K/mm3 (150-400); RDW Coefficient Variation 14.5 % (11.7-14.2); RDW Standard Deviation 47.6 fL (35.1-46.3); Red Blood Cell Count 2.75 M/mm3 (3.80-5.20); White Blood Cell Count 9.18 K/mm3 (4.00-11.30)
[2022-02-23 06:57] LABS: Albumin, Blood 1.7 g/dL (3.4-5.0); Anion Gap 7 mmol/L (6-16); Blood Urea Nitrogen 28 mg/dL (8-24); CO2, Blood 23 mmol/L (21-32); Calcium, Blood 8.6 mg/dL (8.5-10.1); Chloride, Blood 108 mmol/L (98-108); Creatinine, Blood 0.82 mg/dL (0.40-1.00); Glomerular Filtration Rate 76 (60-); Glucose, Blood 127 mg/dL (70-99); Magnesium, Blood 2.1 mg/dL (1.6-2.4); Phosphorus, Blood 3.5 mg/dL (2.5-4.9); Potassium, Blood 3.8 mmol/L (3.5-5.5); Sodium, Blood 138 mmol/L (136-145)
--- NOTE | 2022-02-23 08:25 | NUR ---
Assumed care at 1999, patient has complaints of nausea and abdominal pain. PRN medications given. Patient up to bedside commode independently. Poor appetite, small bites of apple sauce consumed, but states nausea and pain increases when she eats. Heat therapy offered for comfort. No other concerns at this chavo.
--- NOTE | 2022-02-23 11:39 | NUR ---
dr anderson here to see patient
--- NOTE | 2022-02-23 12:30 | NUR ---
Case conference with pt's hospitalist and RN prior to my visit. RN introduced my to pt who was very receptive to conversation afterwards. Therapeutic listening and review of pt's concerns done. Discussed nonpharmacological interventions to reduce abd pain to prevent increased SE of slowing gut function from pain medications. Pt verbalizes understanding and is not wanting increase in pain meds as she understands effects on GI tract/gut. Discussed increased movement even in bed or when sitting, increased time up in chair, increased PO intake and warm blanket to abdomen. Pt states she really wants a shower and that made her feel better last time. Pt has been offered a shower daily and has been declining but states she feels that would help today. Discussed all of above with RN after my visit. She will get pt to shower if she is still agreeable this afternoon. Pt reports she is passing gas, no belching. Her abd pain is cramping at times & sporatically very sharp without cramping. Pt states her nausea is caused by the pain. She declined OT services again today. Pt seemed less anxious after our visit and seemed to enjoy the visit. I requested that our volunteer make a visit for distraction and therapeutic conversation/listening tomorrow if possible. Surgery service also saw pt today per RN.
--- NOTE | 2022-02-23 12:51 | NUR ---
SPOKE WITH PATIENT AND PATIENTS (JULIA) REGARDING PO INTAKE AND IF PATIENT HAS ANY DIETARY REQUESTS. JULIA BROUGHT IN BREAKFAST SANDWICHES AND BREAKFAST BOWLS FOR PATIENT. PATIENT TOOK 3 BITES OF SQUASH SOUP FOR LUNCH AND DECLINES ANY FURTHER PO INTAKE AT THIS TIME. PT IS AGREEABLE TO SHOWER DURING THIS SHIFT
--- NOTE | 2022-02-23 17:13 | NUR ---
PT STATES HAVING SLIGHTLY LOWER PAIN LEVEL TODAY THAN SHE DID YESTERDAY, REPORTS PAIN IS CONSTANTLY 7-8/10. PT UP TO BEDSIDE COMMODE INDEPENDENTLY, PT ASKED FOR SHOWER EARLIER IN SHIFT THEN DECLINED WHEN OFFERED ORAL CARE OR SHOWER. ABD WITH ACTIVE BOWEL SOUNDS, MEDICATED X1 FOR NAUSEA. PT REPORTS IS PASSING FLATUS. TOOK A FEW BITES OF SOUP AND SIPS OF COKE AND VITAWATER. DISCUSSED WITH PATIENT NEED TO ATTEMPT TO EAT SMALL AMOUNTS OF FOOD THROUGHOUT DAY
--- NOTE | 2022-02-24 04:54 | NUR ---
SHIFT SUMMARY PT A&0X4, AND COOPERATIVE WITH CARE. NO ACUTE CHANGES, VSS. MEDICATING FOR PAIN PER EMAR. INDEPENDENTLY USING BSC. APPETITE REMAINS POOR. CALLS APPROPRIATELY, CALL LIGHT WITHIN REACH.
--- NOTE | 2022-02-24 09:35 | NUR ---
MIDEPIGASTRIC PAIN PT REPORTED "CHEST HURTING" UPON DISCUSSION, REPORTED IT IN AREA OF MIDEPIGASTRIC. BP AND HR STABLE. BOOSTED IN BED AND PROVIDED KPAD FOR COMFORT. PT REPORS PAIN IMPROVING. REPORTED TO DR CABEZAS.
--- NOTE | 2022-02-24 15:47 | NUR ---
PT BACK TO ROOM PT WENT FOR RIDE IN WC W/FAMILY. NOW BACK TO ROOM, RESTING IN BED. CALL LIGHT IN REACH. DENIES ANY NEEDS AT THIS TIME.
--- NOTE | 2022-02-24 18:35 | NUR ---
SUMMARY CALLED DR CABEZAS CONCERNING PT'S CONDITION THIS EVENING. HAVING N/V THAT IS NOT RESPONDING TO ZOFRAN ADMINISTERED PER ORDERS. PT HAVING FREQUENT UNFORMED SOFT STOOLS. ANXIOUS. TACHYPNIC AND TACHY W/A TEMP OF 101.5. REMOVED ALL BUT ONE BLANKET. DISCUSSED W/DR CABEZAS PT'S INABILITY TO KEEP DOWN PO TYLENOL AND HAVING FREQUENT STOOLS SO DOUBTFUL MAY TOLERATE SUPPOSITORY. REC'D SCHEDULED ABX AND IV FLUID BOLUS RUNNING NOW. PT'S BREATHING SOUNDS COARSE. CALL LIGHT IN REACH.
--- NOTE | 2022-02-24 19:02 | NUR ---
CALLED DR JOCELYNN CABEZAS IN TO SEE PT. ORDERS OBTAINED FOR CXR, CBC, AND C DIFF.
[2022-02-24 19:48] LABS: BASOPHILS ABSOLUTE AUTO 0.05 K/mm3 (0.00-0.23); BASOPHILS PERCENT AUTO 0 % (0-2); EOSINOPHILS ABSOLUTE AUTO 0.04 K/mm3 (0.00-0.68); EOSINOPHILS PERCENT AUTO 0 % (0-6); Hematocrit 26.3 % (33.0-51.0); Hemoglobin 8.9 g/dL (11.5-16.0); IMMATURE GRAN ABSOLUTE AUTO 0.17 K/mm3 (0.00-0.10); IMMATURE GRAN PERCENT AUTO 1 % (0-1); LYMPHOCYTES PERCENT AUTO 7 % (21-46); MONOCYTES ABSOLUTE AUTO 1.37 K/mm3 (0.16-1.47); MONOCYTES PERCENT AUTO 6 % (4-13); Mean Corpuscular HGB 30.4 pg (26.0-34.0); Mean Corpuscular HGB Conc 33.8 g/dL (31.5-36.5); Mean Corpuscular Volume 90 fL (80-100); Mean Platelet Volume 10.8 fL (9.1-12.4); NEUTROPHILS ABSOLUTE AUTO 19.67 K/mm3 (1.96-9.15); NEUTROPHILS PERCENT AUTO 86 % (41-73); Platelet Count 554 K/mm3 (150-400); RDW Coefficient Variation 14.3 % (11.7-14.2); RDW Standard Deviation 46.3 fL (35.1-46.3); Red Blood Cell Count 2.93 M/mm3 (3.80-5.20)
--- NOTE | 2022-02-24 20:00 | NUR ---
CALLED AT 1999 TO UPDATED ABOUT CBC RESULTS AND CURRENT VITALS. PT'S TEMP WAS ELEVATED AT 103.0, ORDERED ANOTHER 500ML FLUID BOLUS AND 15MG OF TORADOL Q6 PRN. ALSO TOLD US TO GET IN TOUCH WITH THE SURGEON CUSTOMER CONTACT SALES ASSOCIATE. WAS NOTIFIED AND ORDERED CT OF ABD/PELVIS WITH IV CONTRAST.
--- NOTE | 2022-02-24 23:00 | NUR ---
NOTIFIED ABOUT CT RESULTS, NO NEW ORDERS.
--- NOTE | 2022-02-25 04:00 | NUR ---
FENTANYL PATCH FOUND IN BED WHEN HELPING THE PT TO THE BSC. DISPOSED OF, NEW PATCH SCHEDULED TO BE APPLIED TODAY.
--- NOTE | 2022-02-25 05:35 | NUR ---
SHIFT SUMMARY PT ALERT AND ORIENTED. ELEVATED TEMP AT BEGINNING OF SHIFT, GIVEN TORADOL RESPONDED WELL, TEMPS WITHIN NORMAL RANGE NOW. CT OF ABD/PELVIS DONE RESULTS REPORTED TO DR. JAMA. MEDICATING FOR NAUSEA PER EMAR. SBA TO THE BSC TO HELP MANAGE LINES. PT'S BREATH SOUNDS REMAIN COARSE. ENCOURAGED TO DEEP BREATH AND COUGH TO HELP CLEAR LUNGS. CALL LIGHT WITHIN REACH.
[2022-02-25 08:03] LABS: C DIFFICILE DNA NEGATIVE (Negative)
--- NOTE | 2022-02-25 10:29 | NUR ---
DR CABEZAS IN TO SEE PT.
--- NOTE | 2022-02-25 17:07 | NUR ---
SUMMARY PT NAUSEA SEEMS IMPROVED AT PRESENT TIME. PT STARTED ON ANTIANXIETY MEDS THIS SHIFT. PT'S VOICE HOARSE AND HAS PRODUCTIVE/CONGESTED COUGH. HAS DIFFICULTY EXPELLING SECRETIONS. LUNGS SOUND COARSE. 02 SATS STABLE ON RA BUT PT TACHYPNIC AT 24. AFEBRILE T/O SHIFT. SAT UP IN RECLINER THIS AFTERNOON. USING BSC, HAS VOIDED MULTIPLE TIMES AND IS HAVING DARK BROWN UNFORMED STOOLS. CALL LIGHT IN REACH.
--- NOTE | 2022-02-26 05:28 | NUR ---
SHIFT SUMMARY PT A&OX4, PLEASANT AND COOPERATIVE WITH CARE. MEDICATED FOR PAIN PER EMAR. LUNG SOUNDS REMAIN COARSE, ENCOURAGED TO COUGH TO EXPEL SECRETIONS. SATS >90 ON RA, BUT STILL TACHYPNEIC. PT INDEPENDENTLY USING BSC. ON CLEARS FOR EGD LATER TODAY. LITTLE APPETITE STILL. CALLS APPROPRIATELY, CALL LIGHT WITHIN REACH.
[2022-02-26 06:16] LABS: BASOPHILS ABSOLUTE AUTO 0.02 K/mm3 (0.00-0.23); BASOPHILS PERCENT AUTO 0 % (0-2); EOSINOPHILS ABSOLUTE AUTO 0.13 K/mm3 (0.00-0.68); EOSINOPHILS PERCENT AUTO 1 % (0-6); Hematocrit 22.8 % (33.0-51.0); Hemoglobin 7.6 g/dL (11.5-16.0); IMMATURE GRAN ABSOLUTE AUTO 0.07 K/mm3 (0.00-0.10); IMMATURE GRAN PERCENT AUTO 1 % (0-1); LYMPHOCYTES ABSOLUTE AUTO 2.26 K/mm3 (0.84-5.20); LYMPHOCYTES PERCENT AUTO 23 % (21-46); MONOCYTES ABSOLUTE AUTO 1.07 K/mm3 (0.16-1.47); MONOCYTES PERCENT AUTO 11 % (4-13); Mean Corpuscular HGB Conc 33.3 g/dL (31.5-36.5); Mean Corpuscular Volume 90 fL (80-100); Mean Platelet Volume 10.7 fL (9.1-12.4); NEUTROPHILS ABSOLUTE AUTO 6.24 K/mm3 (1.96-9.15); NEUTROPHILS PERCENT AUTO 64 % (41-73); Platelet Count 414 K/mm3 (150-400); RDW Coefficient Variation 14.2 % (11.7-14.2); Red Blood Cell Count 2.53 M/mm3 (3.80-5.20); White Blood Cell Count 9.79 K/mm3 (4.00-11.30)
[2022-02-26 06:38] LABS: Albumin, Blood 1.8 g/dL (3.4-5.0); Albumin/Globulin Ratio 0.4 (0.8-1.8); Bilirubin, Total 0.2 mg/dL (0.1-1.0); Bun/Creatinine Ratio 26.1 (12.0-20.0); Calcium, Blood 8.5 mg/dL (8.5-10.1); Creatinine, Blood 0.69 mg/dL (0.40-1.00); Globulin, Blood 4.4 g/dL (2.2-4.0); Potassium, Blood 3.8 mmol/L (3.5-5.5); Total Protein, Blood 6.2 g/dL (6.4-8.2)
--- NOTE | 2022-02-26 12:30 | NUR ---
patient to day surgery with lisandra purdy
--- NOTE | 2022-02-26 12:57 | NUR ---
PT IN BED DENYING PPAIN OR NAUSEA. PROVIDER CONSULTED PT FOR PROCEDURE AT BEDSIDE. PT RECIEVING BREATHING TX FOR SOB AND WHEEZING PRIOR TO PROCEDURE. PT ON RM AIR.
--- NOTE | 2022-02-26 13:20 | NUR ---
02/26/22 1320 Tino Young HISTORY, CHART, MEDICATIONS AND ALLERGIES REVIEWED BEFORE START OF PROCEDURE. PATIENT CONFIRMS NPO STATUS AND AGREES WITH SCHEDULED PROCEDURE. 3-LEAD EKG REVIEWED WITH PHYSICIAN PRIOR TO START OF PROCEDURE. MONITOR INTACT WITH CONTINUOUS PULSE OXIMETRY,CAPNOGRAPHY, 3-LEAD EKG, INTERMITTENT BP. SUPPLEMENTAL O2 TO BE TITRATED THROUGHOUT PROCEDURE TO MAINTAIN O2 SATURATION ABOVE 90%. PATIENT DETERMINED TO BE ASA APPROPRIATE FOR PROPOFOL SEDATION PRIOR TO START OF PROCEDURE BY
--- NOTE | 2022-02-26 13:43 | NUR ---
PATIENT RETURNED TO ROOM FROM DAY SURGERY. VSS ON ROOM AIR. LUNGS REMAIN COURSE T/O. PATIENT REPORTING MODERATE ABDOMINAL PAIN. CALL LIGHT IN REACH.
--- NOTE | 2022-02-26 17:58 | NUR ---
SHIFT SUMMARY NO ACUTE CHANGES THIS SHIFT. PATIENT HAD EGD DIAGNOSTIC TODAY, NOTHING REMARKABLE NOTED. PATIENT HAS BEEN UP TO CHAIR FOR MOST OF SHIFT, INDEPENDENT TO BSC. NO PO APPETITE OR INTAKE THIS AFTERNOON SINCE PROCEDURE. VOIDING WELL. PAIN MANAGED PER EMAR. USES CALL LIGHT APPROPRIATELY, IN REACH. WILL REPORT TO ONCOMING RN AT 1900.
--- NOTE | 2022-02-27 05:14 | NUR ---
SHIFT SUMMARY PT A&OX4, AND COOPERATIVE WITH CARE. MEDICATED ONCE FOR PAIN WITH TORADOL. NO ACUTE CHANGES. INDEPENDENT TO BSC. APPETITE REMAINS POOR. SATS >90 ON RA, ENCOURAGED I.S. AND FLUTTER VALVE USE. CALLS APPROPRIATELY, CALL LIGHT WITHIN REACH.
[2022-02-27 05:15] LABS: BASOPHILS ABSOLUTE AUTO 0.03 K/mm3 (0.00-0.23); BASOPHILS PERCENT AUTO 0 % (0-2); EOSINOPHILS PERCENT AUTO 2 % (0-6); Hematocrit 24.9 % (33.0-51.0); Hemoglobin 8.3 g/dL (11.5-16.0); IMMATURE GRAN ABSOLUTE AUTO 0.09 K/mm3 (0.00-0.10); IMMATURE GRAN PERCENT AUTO 1 % (0-1); LYMPHOCYTES ABSOLUTE AUTO 2.56 K/mm3 (0.84-5.20); LYMPHOCYTES PERCENT AUTO 22 % (21-46); MONOCYTES PERCENT AUTO 9 % (4-13); Mean Corpuscular HGB 30.3 pg (26.0-34.0); Mean Corpuscular HGB Conc 33.3 g/dL (31.5-36.5); Mean Corpuscular Volume 91 fL (80-100); NEUTROPHILS ABSOLUTE AUTO 7.79 K/mm3 (1.96-9.15); NEUTROPHILS PERCENT AUTO 67 % (41-73); Platelet Count 474 K/mm3 (150-400); RDW Coefficient Variation 14.6 % (11.7-14.2); RDW Standard Deviation 47.3 fL (35.1-46.3); Red Blood Cell Count 2.74 M/mm3 (3.80-5.20); White Blood Cell Count 11.67 K/mm3 (4.00-11.30)
[2022-02-27 08:32] LABS: Bun/Creatinine Ratio 33.6 (12.0-20.0); Calcium, Blood 9.8 mg/dL (8.5-10.1); Creatinine, Blood 0.71 mg/dL (0.40-1.00); Potassium, Blood 4.1 mmol/L (3.5-5.5)
--- NOTE | 2022-02-27 15:31 | NUR ---
SHIFT SUMMARY NO ACUTE CHANGES THIS SHIFT. PATIENT AMBULATED IN HALLWAYS WITH PHYSICAL THERAPY AND DID VERY WELL. ABDOMINAL PAIN REMAINS THAT SAME, ABOUT 7-9/10. NAUSEA COMES AND GOES, NO EMESIS REPORTED. PATIENT UP TO [facility] T/O SHIFT INDEPENDENTLY. STILL LITTLE TO NO PO INTAKE, REPORTS NO APPETITE. PATEINT TOOK BITE OF BREAKFAST THIS AM, NOTHING ELSE SINCE THEN. TOLERATIING SIPS OF LIQUIDS T/O SHIFT. VOIDING WELL W/O DIFFICULTY. TPN INFUSING AT 55/HR. PLAN TO CONTNIUE IV ABX, PUSH FOR PO INTAKE, REPEAT CT SCAN 03/05, PER SURGERY. USES CALL LIGHT APPROPRIATELY, REPORT TO NELL KIRKLAND RN.
--- NOTE | 2022-02-27 16:51 | NUR ---
Met with pt at bedside today; she has been here for approximately a month after surgical intervention for intra-abdominal abcess. She was then found to have MULTIPLE abcesses, which have been improving week by week. EGD yesterday was unremarkable. She has remained on TPN for weeks, while also c/o nausea and pain with eating. However, she stated today she would like a soft diet, as the [facility] soft is "too pureed and gross". She states she has been declining magic cups BID and Ensures TID, but doesn't have a reason, and isn't interested in discussing this further at this time. Received new ST order for update eval from Dr. Kamara, to be completed tomorrow per ST. In the meantime, discussion with dietary regarding weaning TPN while encouraging PO foods. PT prescribed AMB exersizes TID, for strengthening. Pt's s/o states concern regarding the lack of oral intake by patient. He recongnizes the importance of oral intake as well. Palliative plan to meet with s/o and patient tomorrow.
--- NOTE | 2022-02-27 18:49 | NUR ---
ASSUMED CARE OF PATIENT AT 1630. PATIENT WAS SLEEPING IN HER CHAIR. ADMINISTERED TPN, ABX, MARINOL. PATIENT TOLERATED WELL. ALERT AND ORIENTED AND PLEASANT INTERACTION. WILL REPORT TO [employer] ARCHITECT RN.
[2022-02-28 05:21] LABS: Hematocrit 23.7 % (33.0-51.0); Hemoglobin 7.9 g/dL (11.5-16.0); Mean Corpuscular HGB 31.5 pg (26.0-34.0); Mean Corpuscular HGB Conc 33.3 g/dL (31.5-36.5); Mean Corpuscular Volume 94 fL (80-100); Mean Platelet Volume 11.4 fL (9.1-12.4); Platelet Count 443 K/mm3 (150-400); RDW Standard Deviation 50.4 fL (35.1-46.3); Red Blood Cell Count 2.51 M/mm3 (3.80-5.20); White Blood Cell Count 8.37 K/mm3 (4.00-11.30)
--- NOTE | 2022-02-28 06:25 | NUR ---
Patient independent in room. Intermittent abdominal pain. PRN pain med requested x1, zofran given x2. Patient ate most of grilled cheese sandwhich and half of ensure drink. No acute safety concerns at this time.
[2022-02-28 08:47] LABS: Vancomycin, Trough 7.2 ug/mL (5.0-10.0)
[2022-02-28 08:48] LABS: Ferritin, Serum 356 ng/mL (8-252); Iron Serum 56 ug/dL (50-170); Magnesium, Blood 2.1 mg/dL (1.6-2.4); Total Iron Binding Capacity 175 ug/dL (250-450)
[2022-02-28 08:49] LABS: Albumin, Blood 2.1 g/dL (3.4-5.0); Anion Gap 10 mmol/L (6-16); Blood Urea Nitrogen 25 mg/dL (8-24); Bun/Creatinine Ratio 31.1 (12.0-20.0); CO2, Blood 21 mmol/L (21-32); Calcium, Blood 8.7 mg/dL (8.5-10.1); Chloride, Blood 110 mmol/L (98-108); Glomerular Filtration Rate 78 (60-); Glucose, Blood 106 mg/dL (70-99); Potassium, Blood 4.3 mmol/L (3.5-5.5); Sodium, Blood 141 mmol/L (136-145)
--- NOTE | 2022-02-28 13:01 | NUR ---
Pt resistive to exercize today, but finally agreed after speaking to PT. Dr. Kamara gave v/o to d/c IV Fentanyl. Pt continues to have Fentanyl patch and oxycodone tabs for breakthrough pain. Pt's s/o has not come yet, but stated yesterday he would be in to see pt today. Also awaiting ST note at this time. Palliative care will continue to follow pt as needed. Plan to encourage pt to meet goals to d/c home within 1 week.
--- NOTE | 2022-02-28 19:09 | NUR ---
SHIFT SUMMARY PATIENT ALERT AND ORIENTED BETWEEN FREQUENT NAPS. TOLERATED HALF A GRILLED CHEESE SANDWICH X2 TODAY. TPN SWITCHED TO CLINIMIX. SBA TO AMBULATE IN HALLS WITH FWW. INDEPENDENT IN ROOM. VOIDING WELL. REPORTS DIARRHEA. ROUTINE IV ABX THROUGH PICC. VISITED DURING AFTERNOON. SPEECH ADVANCED BACK TO REGULAR DIET. PATIENT VERBALIZED THAT SHE WANTS TO DISCHARGE TOMORROW 03/01/22 AND GO HOME TO EAT HER OWN FOOD. 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
--- NOTE | 2022-03-01 07:14 | NUR ---
SHIFT SUMMARY: PT REMAINED NAUSEATED T/O THE SHIFT. MEDICATED WITH ZOFRAN PER EMAR ORDERS. C/O PAIN ONCE DURING THE SHIFT, MEDICATED AND PT REPORTS IT WAS WELL MANAGED. TOLERATING SMALL AMOUNTS OF PO FLUIDS. ENCOURAGED TO DRINK AND EAT WHEN SHE CAN. USING BSC IND IN ROOM. CONTINUES TO HAVE LOOSE BM. FLUIDS RUNNING AT [place] RUNNING. PT RESTING AT THIS TIME WITH CALL LIGHT IN REACH.
[2022-03-01 08:52] LABS: Vancomycin, Trough 13.4 ug/mL (5.0-10.0)
[2022-03-01] MEDS ORDERED: DRON2.5 PO (14:58)
[2022-03-01] MEDS ORDERED: FENTANYL1 EA12 TOP (15:02)
[2022-03-01] MEDS ORDERED: OXYC5 PO (15:04)
--- NOTE | 2022-03-01 16:02 | NUR ---
1550 PT DISCHARGED TO HOME WITH HER . PT TAKING VERY SMALL SIPS OF PO COKE AND VITAWATER. PT HAS DECLINED ALL PO FOODS THIS SHIFT. AMBULATING IN ROOM AND TO COMMODE INDEPENDENTLY WITH USE OF WALKER. PT REPORTS CONTINUOUS NAUSEA ANFD RATES HER ABD PAIN AT 8-10/10. ABD INCISION WITH STERI STRIPS INTACT, NO REDNESS OR DRAINAGE. VOIDING CLEAR YELLOW URINE, SMALL AMOUNT OF LIQUID BROWN STOOL. PT AND HER BOTH REQUEST DISCHARGE TO HOME AND WILL HAVE HOME HEALTH FOLLOW UP
== END 2022-03-01 15:50 | disposition home health service (06) | DRG 853 ==
LOC: ER 14:21 → SURS 22:15
PROVIDERS: Family Medicine; Internal Medicine; Physician Assistant; Surgery; ADMIT Internal Medicine
PROC: 3E03329 Introduction of Other Anti-infective into Peripheral Vein, Percutaneous Approach (ICD-10-PCS; 2022-01-30)
PROC: 0DBL0ZZ Excision of Transverse Colon, Open Approach (ICD-10-PCS; principal; 2022-02-02 10:30)
PROC: 02H633Z Insertion of Infusion Device into Right Atrium, Percutaneous Approach (ICD-10-PCS; 2022-02-06)
PROC: 0DJ08ZZ Inspection of Upper Intestinal Tract, Via Natural or Artificial Opening Endoscopic (ICD-10-PCS; 2022-02-26)
DX: A41.9 Sepsis, unspecified organism (principal); K63.1 Perforation of intestine (nontraumatic); K65.1 Peritoneal abscess; K55.9 Vascular disorder of intestine, unspecified; Z68.1 Body mass index [BMI] 19.9 or less, adult; E87.1 Hypo-osmolality and hyponatremia; E44.0 Moderate protein-calorie malnutrition; J44.9 Chronic obstructive pulmonary disease, unspecified; F31.9 Bipolar disorder, unspecified; E87.6 Hypokalemia; K44.9 Diaphragmatic hernia without obstruction or gangrene; F17.210 Nicotine dependence, cigarettes, uncomplicated; M19.90 Unspecified osteoarthritis, unspecified site; E83.39 Other disorders of phosphorus metabolism; E83.42 Hypomagnesemia; G89.29 Other chronic pain; M54.9 Dorsalgia, unspecified; D64.9 Anemia, unspecified; D75.839 Thrombocytosis, unspecified; E88.09 Other disorders of plasma-protein metabolism, not elsewhere classified; M81.0 Age-related osteoporosis without current pathological fracture; K59.09 Other constipation; E03.9 Hypothyroidism, unspecified; F41.9 Anxiety disorder, unspecified; R63.4 Abnormal weight loss; F10.10 Alcohol abuse, uncomplicated; Z88.5 Allergy status to narcotic agent; Z88.0 Allergy status to penicillin; Z86.73 Personal history of transient ischemic attack (TIA), and cerebral infarction without residual deficits; Z90.49 Acquired absence of other specified parts of digestive tract; Z98.890 Other specified postprocedural states; Z90.710 Acquired absence of both cervix and uterus; Z88.1 Allergy status to other antibiotic agents; Z88.8 Allergy status to other drugs, medicaments and biological substances; Z79.51 Long term (current) use of inhaled steroids; Z79.899 Other long term (current) drug therapy
CPT/HCPCS: 36415; 71045; 74019; 74174; 74176; 74177; 80048; 80053; 80069; 80202; 82607; 82728; 82947; 83540; 83550; 83605; 83690; 83735; 83880; 84100; 84478; 85025; 85027; 85610; 87040; 87493; 88307; 92526; 92610; 93005; 93010; 93306; 94640; 94664; 94760; 94762; 96361; 96365-59; 96375; 97110; 97116; 97162; 97166; 97168; 97530; 97535; 99285-25; A9270; C9113; J0360; J0610; J0696; J1100; J1170; J1650; J1885; J1940; J2060; J2370; J2405; J2543; J2704; J2710; J2765; J3010; J3370; J3411; J3475; J3480; J7030; J7040; J7050; J7060; J7120; J7131; Q0167; Q9967

== ENCOUNTER 2022-09-11 08:06 | Emergency (ER) | payer OTHER ==
[~2022-09-11] VITALS: Ht 167.6 cm; Wt 38.6 kg
[~2022-09-11 08:06] MED LIST changes: +B-121000 MCG PO; +DOC250 PO; +DRON2.5 PO; +FENTANYL1 EA12 TOP; +METO10 PO; +Nicoderm Cq1 EACH TOP; +OXYC5 PO; +SENNA LAXATIVE8.6 MG PO; +TRANSDERM-SCOP1 EA13 TD
[2022-09-11] MEDS ORDERED: AZIT250 PO (10:04)
[2022-09-11 10:21] VITALS: BP 130/96
== END 2022-09-11 10:38 | disposition home or self-care (01) ==
LOC: ER 08:06
DX: J44.1 Chronic obstructive pulmonary disease with (acute) exacerbation (principal); I47.1 Supraventricular tachycardia; Z88.0 Allergy status to penicillin; Z88.8 Allergy status to other drugs, medicaments and biological substances; Z88.5 Allergy status to narcotic agent; Z88.1 Allergy status to other antibiotic agents; Z79.899 Other long term (current) drug therapy; Z79.891 Long term (current) use of opiate analgesic; F17.210 Nicotine dependence, cigarettes, uncomplicated; E03.9 Hypothyroidism, unspecified
CPT/HCPCS: 71046; 93971; 94644; 94664; 96374; 96375; 99284-25; A9270; J1100; J1885

== ENCOUNTER 2023-12-01 06:36 | Inpatient (IN) | payer OTHER ==
[~2023-12-01] VITALS: Ht 167.6 cm; Wt 44.5 kg
[~2023-12-01 06:36] MED LIST changes: +AZIT250 PO
[2023-12-01] MEDS ORDERED: FentaNYL Citrate 50 MCG/ML 2 ML Injection IV ONE (06:50)
[2023-12-01 07:10] LABS: BASOPHILS ABSOLUTE AUTO 0.05 K/mm3 (0.00-0.23); BASOPHILS PERCENT AUTO 0 % (0-2); EOSINOPHILS ABSOLUTE AUTO 0.01 K/mm3 (0.00-0.68); EOSINOPHILS PERCENT AUTO 0 % (0-6); Hematocrit 33.9 % (33.0-51.0); Hemoglobin 11.3 g/dL (11.5-16.0); IMMATURE GRAN ABSOLUTE AUTO 0.15 K/mm3 (0.00-0.10); IMMATURE GRAN PERCENT AUTO 1 % (0-1); LYMPHOCYTES ABSOLUTE AUTO 1.66 K/mm3 (0.84-5.20); LYMPHOCYTES PERCENT AUTO 9 % (21-46); MONOCYTES ABSOLUTE AUTO 1.44 K/mm3 (0.16-1.47); MONOCYTES PERCENT AUTO 8 % (4-13); Mean Corpuscular HGB 31.9 pg (26.0-34.0); Mean Corpuscular HGB Conc 33.3 g/dL (31.5-36.5); Mean Corpuscular Volume 96 fL (80-100); NEUTROPHILS ABSOLUTE AUTO 14.92 K/mm3 (1.96-9.15); NEUTROPHILS PERCENT AUTO 82 % (41-73); Platelet Count 262 K/mm3 (150-400); RDW Coefficient Variation 13.5 % (11.7-14.2); RDW Standard Deviation 47.7 fL (35.1-46.3); Red Blood Cell Count 3.54 M/mm3 (3.80-5.20); White Blood Cell Count 18.23 K/mm3 (4.00-11.30)
[2023-12-01 07:33] LABS: Bun/Creatinine Ratio 14.2 (12.0-20.0); Calcium, Blood 8.5 mg/dL (8.5-10.1); Creatinine, Blood 1.2 mg/dL (0.40-1.00); Potassium, Blood 4.6 mmol/L (3.5-5.5)
[2023-12-01] MEDS ORDERED: NS 1,000 ML IV SCH (07:45)
[2023-12-01] MEDS ORDERED: [UNRECOGNIZED DRUG - CODE] PO (08:56)
[2023-12-01] MEDS ORDERED: VENLAFAXINE HC225 MG PO (08:56)
[2023-12-01] MEDS ORDERED: BUSPIRONE HCL5 M6 PO (08:56)
[2023-12-01] MEDS ORDERED: REMERON1510 PO (08:56)
[2023-12-01] MEDS ORDERED: LAMOTRIGINE100 M1 PO (08:56)
[2023-12-01] MEDS ORDERED: PEPCID40 MG PO (08:57)
[2023-12-01] MEDS ORDERED: LORAZEPAM0.5 MG PO (08:57)
[2023-12-01] MEDS ORDERED: Ondansetron HCl 2 MG / ML 2ML Vial IV PRN (09:00)
[2023-12-01] MEDS ORDERED: OMEP20ER PO (09:01)
[2023-12-01] MEDS ORDERED: FentaNYL Citrate 50 MCG/ML 2 ML Injection IV PRN (09:10)
[2023-12-01] MEDS ORDERED: FLU VACC TS2024-25(6MOS UP)/PF 45 MCG/0.5 ML SYRINGE IM SCH (09:10)
[2023-12-01] MEDS ORDERED: MILN100T PO (11:07)
--- NOTE | 2023-12-01 11:11 | NUR ---
pt arrived to unit from ed transferred pt from [facility] to bed. pt very painful w/movement. l hip edematous, lle externally rotated. pulses present. oriented pt to use of call light.
[2023-12-01] MEDS ORDERED: OxyCODONE HCL 5 MG TAB PO ONE (11:30)
[2023-12-01] MEDS ORDERED: Rocuronium Bromide 10 MG/ML 5ML Injection IV ONE (11:52)
[2023-12-01] MEDS ORDERED: Etomidate 2MG / ML 10ML Vial XX ONE (11:52)
[2023-12-01] MEDS ORDERED: LORazepam 0.5 MG Tab PO PRN (13:15)
[2023-12-01] MEDS ORDERED: Albuterol HFA200 ACT/6.7 GM INH INH PRN (13:25)
[2023-12-01] MEDS ORDERED: Acetaminophen 325 MG TABLET PO PRN (13:40)
[2023-12-01] MEDS ORDERED: HYDROmorphone HCl/Pf 1MG SYR IV PRN (13:40)
[2023-12-01] MEDS ORDERED: OxyCODONE HCL 5 MG TAB PO PRN (13:40)
[2023-12-01] MEDS ORDERED: Lactated Ringer's 1,000 ML IV SCH (14:00)
[2023-12-01] MEDS ORDERED: BusPIRone HCl 5 MG Tab PO SCH (14:00)
[2023-12-01 15:12] VITALS: BP 99/65
[2023-12-01 16:25] LABS: Source, Urine Clean Catch
[2023-12-01 16:28] LABS: Appearance, Urine Clear (Clear); Bilirubin, Urine Neg (Neg); Blood, Urine Neg (Neg); Color, Urine Pale Yellow (P-Yellow); Glucose Qualitative, Urine Neg (Neg); Ketones, Urine Neg (Neg); Leukocyte Esterase, Urine Neg (Neg); Nitrite, Urine Neg (Neg); Protein, Urine 1+ (Neg); Specific Gravity, Urine 1.015 (1.003-1.022); Urobilinogen, Urine NORM (Normal)
--- NOTE | 2023-12-01 17:17 | NUR ---
SUMMARY NO ACUTE CHANGES SINCE ARRIVING TO [address] ED. PT WAS UNABLE TO VOID. BS SHOWED 750 ML URINE IN BLADDER. PLACED WINSLOW CATH AND SENT URINE SAMPLE PER ORDERS. PT'S LLE EXTERNALLY ROTATED AND SHORTENED. PT ABLE TO WIGGLE TOES, SKIN WARM AND DRY. MEDICATED PT PER ORDERS FOR PAIN. RESTING IN BED, CALL LIGHT IN REACH. PT PLEASANT AND COOPERATIVE.
[2023-12-01 19:50] VITALS: BP 110/67
[2023-12-01] MEDS ORDERED: Mirtazapine 15 MG Tab PO SCH (21:00)
[2023-12-01] MEDS ORDERED: QUEtiapine Fumarate 200 MG Tab PO SCH (21:00)
[2023-12-01] MEDS ORDERED: Cyanocobalamin 500 MCG Tab PO SCH (21:00)
[2023-12-01] MEDS ORDERED: LORazepam 2 MG/ML 1ML Injection IV PRN (21:15)
[2023-12-01] MEDS ORDERED: ChlordiazePOXIDE 25 MG Cap PO PRN (21:15)
[2023-12-01] MEDS ORDERED: TRANSDERM-SCOP1 EA13 TD (21:25)
[2023-12-02] VITALS (30 sets, daily range): BP systolic 72–152; BP diastolic 50–79
[2023-12-02] MEDS ORDERED: NS 500 ML IV ONE (01:05)
--- NOTE | 2023-12-02 01:48 | NUR ---
0048 WITH CHECK ON PT AND IV FLUIDS PER ORDERS,NOTED PT APPEARING PALE,CLAMMY WITH WAXY APPEARAMCE,THIS RN HAD DIFF WAKING HER,PT WAS GIVEN HER REPORTED ROUTINE HOME MEDS INCLUDING SEROQUEL 200 MG.PT WITH RESP APPEARING SHALLOW,HYPOTENSIVE,TACHY,O2 VIA N/C WITH CONT PULSE OX,WINSLOW WITH YELLOW RETURN.SEE ALL DOC VS.CARRY OUT CLERK AND SHELF STOCKER TO RM AND CALLED DR WITH ORDERS RECEIVED.
[2023-12-02] MEDS ORDERED: Levothyroxine Sodium 0.075 MG Tab PO SCH (06:00)
--- NOTE | 2023-12-02 06:37 | NUR ---
SUMMARY PT MORE ALERT THIS AM.02 WAS IN MOUTH DUE TO MOUTH BREATHING AND IS NOW IN NOSE.VS STABILIZING AFTER 500 ML IV BOLUS.PT RESTING AND REMAINS NPO.
[2023-12-02] MEDS ORDERED: Lactated Ringer's 1,000 ML IV SCH ×2 (08:50)
[2023-12-02] MEDS ORDERED: LamoTRIgine 100 MG Tab PO SCH ×2 (09:00→21:00)
[2023-12-02] MEDS ORDERED: DULoxetine HCL 60 MG Capsule DR PO SCH (09:00)
[2023-12-02] MEDS ORDERED: Enoxaparin 40 MG/0.4 ML SYR SC SCH (09:00)
[2023-12-02] MEDS ORDERED: Tranexamic Acid 100 ML IV SCH (12:50)
[2023-12-02] MEDS ORDERED: CeFAZolin Sodium 2,000 MG in NS 100 ML IV SCH (12:50)
--- NOTE | 2023-12-02 14:06 | NUR ---
PT HAS POWERGLIDE TO LEFT UPPER ARM THAT FLUSHES WELL AND FLOWS TO GRAVITY. PT ALSO HAS 20G IV TO RIGHT AC.
[2023-12-02] MEDS ORDERED: Ipratropium/Albuterol SulF 2.5-0.5MG/3 ML Amp INH ONE (14:20)
[2023-12-02] MEDS ORDERED: Ipratropium/Albuterol SulF 2.5-0.5MG/3 ML Amp ONE (14:27)
[2023-12-02] MEDS ORDERED: propofoL 20 ML IV ONE (14:30)
[2023-12-02] MEDS ORDERED: FentaNYL Citrate 50 MCG/ML 2 ML Injection ONE ×2 (14:30→16:18)
[2023-12-02] MEDS ORDERED: Dexamethasone Sod Phos 10 MG/ML 1ML VIAL ONE (15:08)
[2023-12-02] MEDS ORDERED: LORazepam 0.5 MG Tab PO PRN (15:15)
--- NOTE | 2023-12-02 15:18 | NUR ---
12/02/23 1518 Estrella Lantigua PRIOR TO SURGERY, WHEN TRANSFERRING PATIENT FROM HOSPITAL BED TO HANA TABLE, SURGEON NOTIFIED THIS RN THAT PATIENT HAD HEMATOMA ON HER VAGINAL AREA. AREA APPEARED BRUISED, NO OPEN AREAS NOTED. PATIENT HAD WINSLOW CATHETER PLACED PRIOR TO ENTERING OR.
[2023-12-02] MEDS ORDERED: Bupivacaine 0.5% Inj 50 ML Vial ONE (15:33)
[2023-12-02] MEDS ORDERED: EpiNEPhrine 1 MG/1 ML 1ML Vial ONE (15:33)
[2023-12-02] MEDS ORDERED: Ondansetron HCl 2 MG / ML 2ML Vial ONE (15:40)
[2023-12-02] MEDS ORDERED: Scopolamine Hydrobromide Patch TOP SCH (16:10)
[2023-12-02] MEDS ORDERED: Ketorolac Tromethamine 30mg Vial ONE (16:18)
--- NOTE | 2023-12-02 17:20 | NUR ---
ARRIVAL TO UNIT PT ARRIVED TO UNIT VIA BED FROM PACU. A&O x4. VSS, 3L O2 VIA NC, TELE - SINUS TACH @ 113. TOLERATING ORALS. PT REPORTS PAIN TOLERABLE AT THIS TIME. AQUACEL x2 C/D/I. AT BEDSIDE. CALL LIGHT IN REACH, BED IN LOWEST POSITION.
[2023-12-02] MEDS ORDERED: BusPIRone HCl 5 MG Tab PO SCH (18:00)
--- NOTE | 2023-12-02 19:19 | NUR ---
SHIFT SUMMARY POD 0 L HIP SURG. NO ACUTE CHANGES TODAY. VSS, PT ON 3L O2 VIA NC TO MAINTAIN SAT >90%, CONT BIOX IN USE, TELE IN USE @ SINUS TACH. TOLERATING ORALS. WINSLOW DRAINING YELLOW URINE TO GRAVITY. IV FLUIDS INFUSING PER EMAR. AQUACEL x2 C/D/I. PT RESTING IN BED. PT REPORTS PAIN TOLERABLE, MEDICATED PER EMAR. CALL LIGHT IN REACH, BED IN LOWEST POSITION, REPORT GIVEN TO JOYCE DANIELLE.
[2023-12-02] MEDS ORDERED: QUEtiapine Fumarate 200 MG Tab PO SCH (21:00)
[2023-12-02] MEDS ORDERED: QUEtiapine Fumarate 100 MG Tab PO SCH (21:00)
--- NOTE | 2023-12-02 23:30 | NUR ---
TELEMETRY SINUS TACHY. HR 111 BPM.
[2023-12-03 00:50] VITALS: BP 128/73
--- NOTE | 2023-12-03 04:05 | NUR ---
SHIFT SUMMARY POD1 L HIP. NO ACUTE CHANGES OVERNIGHT. PAIN MANAGED UTILIZING NPIS AND PER EMAR. SURG SITE WITH X2 AQUACELL CDI. 4L LFNC OVERNIGHT D/T DESATS TO 88%SPO2 BELOW 4L. PT VOICED UNDERSATNDING OF PLAN OF CARE, DENIES QUESTIONS/CONCERNS AT THIS TIME.
[2023-12-03 04:15] VITALS: BP 136/57
--- NOTE | 2023-12-03 05:22 | NUR ---
OXYGEN THERAPY PT ON 3L LFNC BEGINNING OF SHIFT. 2300 PT DESAT TO 88%. INCREASED TO 4L LFNC, SPO2 MAINTAINING AT OR ABOVE 90%.
[2023-12-03 07:37] VITALS: BP 140/68
[2023-12-03] MEDS ORDERED: Venlafaxine HCl 75 MG CapCR PO SCH (08:00)
[2023-12-03] MEDS ORDERED: Venlafaxine HCl 25 MG Tab PO SCH (08:00)
[2023-12-03] MEDS ORDERED: Venlafaxine HCl 37.5 MG CapCR PO SCH (08:00)
--- NOTE | 2023-12-03 10:29 | NUR ---
ASSUMED CARE OF PT AT 0815 WITH REPORT. PT AWAKE AND ALERT. REPORTS PAIN IMPROVED AFTER PAIN MEDS GIVEN. ASSISTING WITH COMBING KNOTS OUT OF HER HAIR. CONTINUOUS PULSE OX ON AND IN THE HIGH 90'S WHEN NOT MOVING HER FINGER. WILL ATTEMPT TO WEAN WHILE AWAKE TODAY. DRESSING INTACT TO L HIP WITH NO BREAK THROUGH DRAINAGE. REPORTS SHE DOESN'T GENERALLY USE O2 AT HOME.
[2023-12-03] MEDS ORDERED: VENL75ER PO (11:17)
[2023-12-03] MEDS ORDERED: EFFEXOR XR37.5 MG PO (11:18)
[2023-12-03] MEDS ORDERED: [UNRECOGNIZED DRUG - OTHER] (11:29)
[2023-12-03 11:33] VITALS: BP 148/66
[2023-12-03 14:27] VITALS: BP 154/77
[2023-12-03] MEDS ORDERED: DiphenhydrAMINE HCL 25 MG Cap PO PRN (16:30)
--- NOTE | 2023-12-03 16:44 | NUR ---
SHIFT SUMMARY PT WORKED WITH THERAPY THIS AFTERNOON AND WAS TRANSFERRED TO RECLINER USING FWW AND TOE TOUCH WT BEARING. REPORTED INCREASED PAIN TO LLE AFTER THERAPY. S.O. AT BEDSIDE THIS AFTERNOON AND EXPRESSED CONCERN FOR PTS RESTLESS LEGS AND ARMS, PT STATED SHE WAS FINE AND DIDN'T NEED ANYTHING TIL BEDTIME AND THAT SHE GENERALLY TAKES A LORAZEPAM. S.O. ALSO CAME OUT AND SAID PT WAS ITCHING FREQUENTLY WHICH PT RESPONDED SHE DOESN'T NEED ANYTHING AT THIS TIME. DID GET BENEDRYL ORDERED PRN IF NEEDED FOR LATER.
--- NOTE | 2023-12-03 17:00 | NUR ---
ASSUMPTION OF CARE PT RESTING IN CHAIR. VSS. PT STATES NO NEEDS AT THIS TIME. CALL LIGHT IN REACH.
[2023-12-03 19:23] VITALS: BP 145/76
[2023-12-04] VITALS (8 sets, daily range): BP systolic 12–134; BP diastolic 55–93
--- NOTE | 2023-12-04 04:30 | NUR ---
SHIFT SUMMARY POD2 L HIP. X2 AQUACELL DRESSINGS REMAINED C/D/I OVER SHIFT. PAIN MANAGED UTILIZING NPIS AND PER EMAR. REQUIRED 2-4L LFNC OVERNIGHT WHILE ASLEEP D/T DESATS TO MIDS 80%SPO2 ON RA. CIWA SCORE 7. ANXIETY, MILD TREMORS, RESTLESS LEGS. PRN MEDICATIONS GIVEN PER EMAR. PT ABLE TO VOICE NEEDS, CALL LIGHT IN REACH & INSTRUCTED ON USE. PT VOICED UNDERSTANDING OF PLAN OF CARE, DENIES QUESTIONS/CONCERNS AT THIS TIME.
[2023-12-04 04:37] LABS: Hemoglobin 6.9 g/dL (11.5-16.0); Mean Corpuscular HGB 31.9 pg (26.0-34.0); Mean Corpuscular HGB Conc 32.9 g/dL (31.5-36.5); Mean Corpuscular Volume 97 fL (80-100); NRBC ABSOLUTE 0.19 K/mm3 (0.00-0.02); NRBC Auto 2.7 /100 WBC (0.0-0.2); Platelet Count 215 K/mm3 (150-400); RDW Coefficient Variation 14.1 % (11.7-14.2); RDW Standard Deviation 48.6 fL (35.1-46.3); Red Blood Cell Count 2.16 M/mm3 (3.80-5.20); White Blood Cell Count 7.11 K/mm3 (4.00-11.30)
[2023-12-04 05:00] LABS: Creatinine, Blood 1.46 mg/dL (0.40-1.00); Potassium, Blood 4.3 mmol/L (3.5-5.5)
[2023-12-04 05:06] LABS: BAND PERCENT MAN 15 % (0-8); BASOPHILS PERCENT MAN 0 % (0-2); EOSINOPHILS ABSOLUTE MAN 0.07 K/mm3 (0.00-0.68); EOSINOPHILS PERCENT MAN 1 % (0-6); LYMPHOCYTES ABSOLUTE MAN 1.84 K/mm3 (0.84-5.20); LYMPHOCYTES PERCENT MAN 26 % (21-46); METAMYELOCYTE ABSOLUTE MAN 0.07 K/mm3 (0.00-0.00); METAMYELOCYTE PERCENT MAN 1 % (0-0); MONOCYTES PERCENT MAN 17 % (4-13); NEUTROPHILS ABSOLUTE MAN 3.91 K/mm3 (1.96-9.15); SEG NEUTROPHILS PERCENT MAN 40 % (41-73); TOTAL CELLS COUNTED 100
[2023-12-04] MEDS ORDERED: NS 250 ML IV PRN (11:30)
--- NOTE | 2023-12-04 15:26 | NUR ---
uo and bowel care PT HAD 165 ON BS AT 1345. GOLDY WAS DC'D PRIOR TO DAYSHIFT. DISCUSSED THIS AND ALSO NEED FOR BOWEL CARE WITH DR DICKERSON.
[2023-12-04] MEDS ORDERED: Polyethylene Glycol 3350 17 gm PO PRN (16:35)
[2023-12-04] MEDS ORDERED: Docusate Sodium/Senna 1 Tab PO PRN (16:35)
[2023-12-04] MEDS ORDERED: NS 1,000 ML IV SCH (16:35)
[2023-12-04] MEDS ORDERED: OxyCODONE HCL 5 MG TAB PO PRN (16:35)
[2023-12-04 16:56] LABS: Hematocrit 27.8 % (33.0-51.0); Hemoglobin 9.2 g/dL (11.5-16.0); Mean Corpuscular HGB 32.2 pg (26.0-34.0); Mean Corpuscular HGB Conc 33.1 g/dL (31.5-36.5); Mean Corpuscular Volume 97 fL (80-100); NRBC ABSOLUTE 0.23 K/mm3 (0.00-0.02); Platelet Count 216 K/mm3 (150-400); RDW Coefficient Variation 13.5 % (11.7-14.2); RDW Standard Deviation 46.5 fL (35.1-46.3); Red Blood Cell Count 2.86 M/mm3 (3.80-5.20); White Blood Cell Count 7.58 K/mm3 (4.00-11.30)
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
--- NOTE | 2023-12-04 23:29 | NUR ---
SOMNOLENCE PT GIVEN DOSE OF SEROQUEL TONIGHT. PT VERY SOMNOLENT, NOT AWAKENING TO VERBAL STIMULI. CHARGE NURSE AT BEDSIDE WITH THIS RN ATTEMPTING TO WAKE THIS PT. STERNAL RUBS GIVEN, PT EYES BARELY OPEN. PT NOT ABLE TO FULLY OPEN EYES AND NOT ABLE TO GIVE REPSONSE BACK. PT AROUSES MORE WHEN MOVED AROUND, REPSONDS TO PAINFUL STIMULI. HOSPITALIST CONTACTED. SEROQUEL DOSE DECREASED, VIN PASS ON TO DAY RN AND HOSPITALIST
[2023-12-05 02:57] VITALS: BP 97/70
--- NOTE | 2023-12-05 04:44 | NUR ---
SHIFT SUMMARY POD 3 L HIP RODDING PT SLEPT T/O NIGHT. PT WAS RETAINING URINE, STRAIGHT CATHED. PT A LITTLE MORE AWAKE THIS AM. ABLE TO RESPOND TO SIMPLE QUESTIONS. PAINFUL WHEN MOVING LEG BUT NO PAIN AT REST. VSS. CALL LIGHT WITHIN REACH
[2023-12-05 05:14] LABS: BASOPHILS ABSOLUTE AUTO 0.02 K/mm3 (0.00-0.23); BASOPHILS PERCENT AUTO 0 % (0-2); EOSINOPHILS ABSOLUTE AUTO 0.05 K/mm3 (0.00-0.68); EOSINOPHILS PERCENT AUTO 1 % (0-6); Hematocrit 26.7 % (33.0-51.0); Hemoglobin 8.9 g/dL (11.5-16.0); IMMATURE GRAN ABSOLUTE AUTO 0.06 K/mm3 (0.00-0.10); IMMATURE GRAN PERCENT AUTO 1 % (0-1); LYMPHOCYTES ABSOLUTE AUTO 0.96 K/mm3 (0.84-5.20); LYMPHOCYTES PERCENT AUTO 16 % (21-46); MONOCYTES ABSOLUTE AUTO 1.05 K/mm3 (0.16-1.47); MONOCYTES PERCENT AUTO 17 % (4-13); Mean Corpuscular HGB 32.1 pg (26.0-34.0); Mean Corpuscular HGB Conc 33.3 g/dL (31.5-36.5); Mean Corpuscular Volume 96 fL (80-100); Mean Platelet Volume 9.8 fL (9.1-12.4); NEUTROPHILS PERCENT AUTO 65 % (41-73); NRBC ABSOLUTE 0.12 K/mm3 (0.00-0.02); Platelet Count 215 K/mm3 (150-400); RDW Coefficient Variation 14.2 % (11.7-14.2); Red Blood Cell Count 2.77 M/mm3 (3.80-5.20); White Blood Cell Count 6.04 K/mm3 (4.00-11.30)
[2023-12-05 05:34] LABS: Bun/Creatinine Ratio 23.9 (12.0-20.0); Calcium, Blood 8.7 mg/dL (8.5-10.1); Creatinine, Blood 1.09 mg/dL (0.40-1.00); Potassium, Blood 4.3 mmol/L (3.5-5.5)
[2023-12-05 07:41] VITALS: BP 99/62
[2023-12-05] MEDS ORDERED: Enoxaparin 40 MG/0.4 ML SYR SC SCH (09:00)
[2023-12-05] MEDS ORDERED: Enoxaparin 30 MG/0.3 ML SYR SC SCH (09:00)
--- NOTE | 2023-12-05 11:02 | NUR ---
HELD EFFEXOR D/T PT C/O SWALLOWING DIFFICULTIES. NO COUGHING NOTED WITH SWALLOWING WATER AND LAMICTAL BUT PT REPORTED DIFFICULTY SWALLOWING.
[2023-12-05] MEDS ORDERED: Lactated Ringer's 1,000 ML IV SCH ×2 (11:45)
[2023-12-05 11:55] LABS: Source, Urine Straight Cath
[2023-12-05 12:00] LABS: Appearance, Urine Clear (Clear); Bilirubin, Urine Neg (Neg); Blood, Urine 3+ (Neg); Color, Urine Yellow (P-Yellow); Glucose Qualitative, Urine Neg (Neg); Ketones, Urine 2+ (Neg); Leukocyte Esterase, Urine 1+ (Neg); Nitrite, Urine Neg (Neg); Protein, Urine 2+ (Neg); Urobilinogen, Urine NORM (Normal)
[2023-12-05 12:19] LABS: Bacteria Few /hpf; Squamous Epithelial Cells Rare /hpf (Few)
[2023-12-05 12:49] LABS: Magnesium, Blood 1.9 mg/dL (1.6-2.4)
[2023-12-05 12:50] LABS: Base Excess Venous -1.5 mmol/L; Bicarbonate Venous 23.3 mmol/L (24.0-30.0); PCO2 Venous 39.3 mmHg (38-42); pH Blood Venous 7.39 (7.34-7.37)
[2023-12-05 12:50] LABS: Thyroid Stimulating Hormone 0.543 uIU/mL (0.360-4.800)
--- NOTE | 2023-12-05 13:32 | NUR ---
SPOKE TO PT'S SPOUSE SPOUSE REPORTED THAT IF PT DOES NOT RECEIVE HER SEROQUEL, MIRTAZIPINE AND ATIVAN ROUTINELY, SHE WAKES CONFUSED.
[2023-12-05 14:41] VITALS: BP 108/70
[2023-12-05] MEDS ORDERED: Sodium Phosphate 20 MM in Dextrose 5% 500 ML IV STA (15:59)
--- NOTE | 2023-12-05 16:39 | NUR ---
PT PASSED SMALL AMT FLATUS PT GOT UP TO BSC AND PASSED SMALL AMT FLATUS. DID NOT VOID OR HAVE BM. BECAME NAUSEATED. MEDICATED PER ORDERS W/ZOFRAN. ASSISTED PT BACK TO BED. CALL LIGHT IN REACH, BED ALARM ON.
[2023-12-05 16:57] LABS: Albumin, Blood 2.7 g/dL (3.4-5.0); Albumin/Globulin Ratio 0.8 (0.8-1.8); Bilirubin, Direct 0.3 mg/dL (0.0-0.3); Bilirubin, Indirect 0.5 mg/dL (0.1-0.7); Bilirubin, Total 0.8 mg/dL (0.1-1.0); Globulin, Blood 3.2 g/dL (2.2-4.0); Total Protein, Blood 5.9 g/dL (6.4-8.2)
--- NOTE | 2023-12-05 17:00 | NUR ---
SUMMARY PT SOMNOLENT AND CONFUSED FIRST HALF OF SHIFT. BS AT MIDDAY SHOWED GREATER THAN 389 IN BLADDER. STRAIGHT CATH'D PT AND DRAINED 400 ML DARK YELLOW URINE. SENT UA PER ORDERS. PT CONFUSED OFF AND ON DURING AFTERNOON, ASKING WHY WASN'T BEING DC'D. EXPLAINED PT UNABLE TO VOID AND NEEDED TO WORK WITH THERAPY. PT VERBALIZED UNDERSTANDING. GOT UP TO BSC WITH TWO PERSON ASSIST. DID NOT VOID OR HAVE BM BUT PASSED SM AMT FLATUS. ABD DISTENDED AND FIRM. PT NAUSEATED, MEDICATED PER ORDERS W/ZOFRAN AND PLACED SCHEDULED SCOPOLAMINE PATCH BEHIND L EAR. PT NOW RESTING IN BED WITH CALL LIGHT IN REACH, BED ALARM ON.
[2023-12-05] MEDS ORDERED: Bisacodyl 10 MG Supp PR PRN (17:40)
[2023-12-05 19:28] VITALS: BP 174/74
[2023-12-05] MEDS ORDERED: QUEtiapine Fumarate 100 MG Tab PO SCH (21:00)
[2023-12-05 23:09] VITALS: BP 180/77
[2023-12-06] VITALS (73 sets, daily range): BP systolic 66–210; BP diastolic 37–82
--- NOTE | 2023-12-06 00:25 | NUR ---
CALLED TO PTS ROOM PER NURSE JAIMEE IN ATTENDANCE,PT WITH VOMITING OF BILE COLORED FLUID AND TIGHT ABD.PT HAS RECEIVED SUPPOS FOR NO BM WITH 0 RESULT.PT WITH HX ETOH DAILY AND IS CURRENTLY OCC INAPPROPRIATE TO SITUATION AT TIMES.PT HAS BEEN TACHY WITH PRIOR HYPOTENSION PRE OP AND IMMEDIATE POSTOP,BUT HAS HAD HYPERTENSION OF RECENT AND REMAINS IN SINUS TACH PER TELE.PTS H/H HAD DROP WITH FOLLOWING 1 UNIT PRBCS GIVEN ON 12/04/23. L HIP SWOLLEN AND BRUISING TO THIGH AND ZEUS AREAS WELL.PT HAS REPORTED HX BOWEL PERF AND RESECT.PT ALSO WITH ARF DX WITH IV FLUIDS IMPROVING CREAT AND GFR.I CALLED DR HOGAN AND HE ORDERED CT ABD AND PELVIS.
--- NOTE | 2023-12-06 00:46 | NUR ---
PT IS BACK TO POST CT. DR HOGAN NOTIFIED AND PLANS TO REVIEW FILM.
--- NOTE | 2023-12-06 01:55 | NUR ---
PT C/O SOB.PTS NURSE NOTED CHANGE IN LUNG SOUNDS.SATS ON 2L N/C 92% I CALLED DR HOGAN AND ORDER OBTAINED FOR CXR [address] ABD/PELVIS RESULTS NOT AVAILIABLE YET,CONFIRMED WITH RADIOLOGY FILMS WERE PUSHED TO NIGHT [place]WK FOR READ.DR HOGAN AWARE.RT AT PT BEDSIDE.
[2023-12-06] MEDS ORDERED: Albuterol 2.5 MG/3 ML VIAL INH PRN (02:00)
--- NOTE | 2023-12-06 03:15 | NUR ---
NG TUBE THIS RN AND ORI DANIELLE ATTEMPTED TO PLACE NG TUBE. PT AGREEABLE TO HAVE NG TUBE PLACED. WHEN PLACING NG TUBE PT BECAME NONCOMPLIANT AND PULLED NG TUBE OUT. PT THEN REFUSES TO HAVE NG TUBE PLACED. PT REPOSITIONED, CALL LIGHT WITHIN REACH
[2023-12-06] MEDS ORDERED: NS 1,000 ML IV SCH ×2 (04:25→14:00)
[2023-12-06] MEDS ORDERED: Cefepime HCl 1,000 MG in NS 100 ML IV SCH ×2 (04:41→16:00)
[2023-12-06 05:27] LABS: BASOPHILS ABSOLUTE AUTO 0.06 K/mm3 (0.00-0.23); BASOPHILS PERCENT AUTO 1 % (0-2); EOSINOPHILS ABSOLUTE AUTO 0.02 K/mm3 (0.00-0.68); EOSINOPHILS PERCENT AUTO 0 % (0-6); Hematocrit 32.1 % (33.0-51.0); Hemoglobin 10.8 g/dL (11.5-16.0); IMMATURE GRAN ABSOLUTE AUTO 0.15 K/mm3 (0.00-0.10); IMMATURE GRAN PERCENT AUTO 2 % (0-1); LYMPHOCYTES ABSOLUTE AUTO 0.66 K/mm3 (0.84-5.20); LYMPHOCYTES PERCENT AUTO 7 % (21-46); MONOCYTES PERCENT AUTO 14 % (4-13); Mean Corpuscular HGB 32.3 pg (26.0-34.0); Mean Corpuscular HGB Conc 33.6 g/dL (31.5-36.5); Mean Corpuscular Volume 96 fL (80-100); Mean Platelet Volume 10.3 fL (9.1-12.4); NEUTROPHILS ABSOLUTE AUTO 7.86 K/mm3 (1.96-9.15); NEUTROPHILS PERCENT AUTO 77 % (41-73); NRBC ABSOLUTE 0.14 K/mm3 (0.00-0.02); NRBC Auto 1.4 /100 WBC (0.0-0.2); Platelet Count 277 K/mm3 (150-400); RDW Coefficient Variation 14.7 % (11.7-14.2); RDW Standard Deviation 48.4 fL (35.1-46.3); Red Blood Cell Count 3.34 M/mm3 (3.80-5.20); White Blood Cell Count 10.15 K/mm3 (4.00-11.30)
[2023-12-06 05:51] LABS: Anion Gap 13 mmol/L (3-11); Blood Urea Nitrogen 14 mg/dL (8-24); Bun/Creatinine Ratio 17.5 (12.0-20.0); CO2, Blood 24 mmol/L (21-32); Calcium, Blood 8.7 mg/dL (8.5-10.1); Chloride, Blood 104 mmol/L (98-108); Glomerular Filtration Rate 77 (60-); Glucose, Blood 135 mg/dL (70-99); Phosphorus, Blood 2.3 mg/dL (2.5-4.9); Potassium, Blood 3.3 mmol/L (3.5-5.5); Sodium, Blood 138 mmol/L (136-145)
--- NOTE | 2023-12-06 06:00 | NUR ---
UPDATE/ TRANSFER PT HAD RECURRENT EPISODE OF VOMITING, MIGUEL ANGEL AND ORI RN WENT AND CLEANED UP PT. THIS RN WAS NOTIFIED THAT PT HAD BECOME MORE SOB. RT WAS CALLED TO ROOM. PT SATS BEGAN TO DROP INTO THE 70'S. O2 WAS TURNED UP TO 5L NC AND SATS CAME UP TO THE 80'S. PCU AND ICU CHARGE CALLED TO ROOM BY RT. WITH FAILED ATTEMPTS TO PLACE NG TUBE. PT DESATS 70'S ON 10L NC, WAS CALLED AND NOTIFIED. RECIEVED ORDER TO MOVE PT TO GREATER CARE. PT WAS THEN PLACED ON NON-REBREATHER SATS IN THE 80'S. PT THEN MOVED TO ICU, HEATHER RN TO TAKE OVER. BEDSIDE REPORT GIVEN.
[2023-12-06] MEDS ORDERED: propofoL 100 ML IV ONE (06:32)
[2023-12-06] MEDS ORDERED: propofoL 100 ML IV PRN (06:50)
--- NOTE | 2023-12-06 07:22 | NUR ---
PT ARRIVES TO ROOM ICU 9 S/P BASIN FINISH OPERATOR TIG WELDER COMING TO ROOM AT 0545. PT ON NRB MASK ON ARRIVAL AND IS ONLY ABLE TO MAINTAIN 87 PERCENT SATURATIONS. RT, VJ, PERFORMS NT SUCTIONING WITH RETURN OF MODERATE AMOUNT OF LIGHT BROWN SECRETIONS. PT'S ABDOMEN NOTED TO BE DISTENDED. AFTER OGT TUBE WAS PLACED POST INTUBATION, LOW WALL SUCTION USED. RETURNED THICK BROWN COLORED LIQUID. INTUBATION: SECONDARY TO PT'S INCREASING WORK OF BREATHING, DR HOGAN COMES TO ROOM. PT ACKNOWLEDGES THAT SHE WOULD NEED TO BE INTUBATED. SHE NODS HER HEAD IN AGREEMENT. CHARGE NURSE ATTEMPTS TO CONTACT FAMILY. PT WAS MEDICATED WITH 10MG ETOMIDATE, AND 50 OF ROCC THIS AT 0608 AND 0[address] 24 AT GUMS. COLOR CHANGE CONFIRMED AND LUNGS AUSCULTATED BY DR HOGAN. PT PLACED TO PROPOFOL DRIP AND HAS HAD THIS SUBSEQUENTLY INCREASED TO 40 MCG'S/KG/MIN. PT REMAINED NOT TOLERATING VENT WHEREAS SHE WAS SITTING UP, AND TRYING TO GET AHOLD OF HER ETT. 50 MCG'S FENTANYL GIVEN WHICH WORKED WELL TO IMPROVE TOLERANCE. COY RN TO ROOM FOR REPORT AND TO ASSUME CARE OF PT.
[2023-12-06] MEDS ORDERED: NS 1,000 ML IV ONE ×2 (07:25→08:25)
[2023-12-06] MEDS ORDERED: Midazolam HCl 1MG / ML 2ML Vial ONE (07:43)
[2023-12-06] MEDS ORDERED: Potassium Phosphate Dibasic 15 MM in Dextrose 5% 250 ML IV STA (07:43)
[2023-12-06] MEDS ORDERED: Midazolam HCl 1MG / ML 2ML Vial IV PRN (07:55)
[2023-12-06] MEDS ORDERED: Albumin (Human) 25gm/100ml 100 ML IV ONE (07:55)
[2023-12-06] MEDS ORDERED: Cefepime 1000 mg Vial IM SCH (08:00)
[2023-12-06] MEDS ORDERED: Cetylpyridinium Chloride 1 EA MISC MT SCH ×2 (08:00→12:10)
--- NOTE | 2023-12-06 09:31 | NUR ---
Clay of Care: Care assumed at 0700hr. Patient intubated and sedated with propofol gtt at 30mcg/kg/min. Patient able to open eyes to verbal commands, nods head appropriately, and follows simple commands. Patient increasingly restless/agitated shortly after shift change, thrashing in bed. Verbal redirection not effective. Call placed to Dr. Iqbal, received order for prn versed and fluid bolus x2. BP soft and significantly decreased with prn's for sedation, systolic's decreasing from 90-110 to 60's. Call again placed to Dr. Iqbal, received order for levophed gtt and PICC line. Levophed started at 2mcg/min, BP increased to systolic's in the 80's-90's MAP's 65-70. Patient also now appears calm/comfortable with propofol gtt increased to 50 mcg/kg/min and x2 prn versed IV. Peripheral IV's x2 patent and intact. Pa cath patent and intact. Vent to AC 18/385/5/60%, spO2 100%. BT's active in lower quadrants, absent in upper quadrants. OG to LIS, small amount of dark green bile output noted. Bilateral soft wrist restraints in place to protect lines, tubes, cords. Plan to place PICC line this morning. Will continue to monitor.
[2023-12-06] MEDS ORDERED: Hydrogen Peroxide 1.5 % Solution MT SCH ×2 (12:00→16:00)
[2023-12-06] MEDS ORDERED: Pantoprazole Sodium 40 MG Injection IV SCH (13:00)
[2023-12-06] MEDS ORDERED: Folic Acid 1 MG in NS 50 ML IV SCH (13:00)
[2023-12-06] MEDS ORDERED: Thiamine HCl 100 MG in NS 50 ML IV SCH (13:00)
[2023-12-06] MEDS ORDERED: Ipratropium/Albuterol SulF 2.5-0.5MG/3 ML Amp INH PRN (13:10)
[2023-12-06] MEDS ORDERED: Haloperidol Lactate Inj. 5 MG/ML Injection IV PRN (13:20)
[2023-12-06] MEDS ORDERED: Potassium Chl 20MEQ/Water100ML 100 ML IV SCH (13:25)
[2023-12-06] MEDS ORDERED: Mag Sulfate 1 GM/D5% 100ML 100 ML IV SCH (13:30)
[2023-12-06] MEDS ORDERED: Vancomycin HCL 1,500 MG in NS 250 ML IV ONE (13:40)
[2023-12-06] MEDS ORDERED: Levothyroxine Sodium 100 MCG Vial IV SCH (14:00)
[2023-12-06 16:21] LABS: Base Excess Venous 2.3 mmol/L; Bicarbonate Venous 26.3 mmol/L (24.0-30.0); PCO2 Venous 36.8 mmHg (38-42); pH Blood Venous 7.46 (7.34-7.37)
--- NOTE | 2023-12-06 18:29 | NUR ---
RN SHIFT SUMMARY ASSUMED CARE OF PT AT 1630. PT IS SEDATED, MOVES ALL EXTREMETIES. SR-ST, LEVOPHED TITRATED TO KEEP MAP > 65. VENT SETTINGS REMAIN UNCHANGED. ETT SUCTIONED NEEDED WITH MODERATE AMOUNT OF THICK KIDD SECRETIONS. OGT IN PLACE. WINSLOW PATENT AND DRAINING CLEAR YELLOW URINE. SKIN UNCHANGED WITH BRUISING TO LEFT GROIN AND LEG, DRESSING OVER HIP INCISION IS C/D/I. PICC TO LEFT UPPER ARM PLACED TODAY. INFUSING AND WITHDRAWING BLOOD. UPDATED VIA PHONE. POC ONGOING.
--- NOTE | 2023-12-06 19:10 | NUR ---
BELONGINGS SENT HOME: [facility] EARRINGS AND SWEATPANTS SENT HOME WITH PT'S .
[2023-12-06] MEDS ORDERED: OLANZapine ODT 5 MG Tab MM SCH (21:00)
[2023-12-07] VITALS (95 sets, daily range): BP systolic 78–162; BP diastolic 38–124
[2023-12-07] MEDS ORDERED: Vancomycin HCL 750 MG in NS 250 ML IV SCH (02:00)
[2023-12-07 04:26] LABS: Hematocrit 20.9 % (33.0-51.0); Hemoglobin 6.8 g/dL (11.5-16.0); Mean Corpuscular HGB 31.8 pg (26.0-34.0); Mean Corpuscular HGB Conc 32.5 g/dL (31.5-36.5); Mean Corpuscular Volume 98 fL (80-100); Mean Platelet Volume 9.7 fL (9.1-12.4); NRBC ABSOLUTE 0.06 K/mm3 (0.00-0.02); NRBC Auto 0.4 /100 WBC (0.0-0.2); Platelet Count 218 K/mm3 (150-400); RDW Coefficient Variation 15.6 % (11.7-14.2); RDW Standard Deviation 50.9 fL (35.1-46.3); Red Blood Cell Count 2.14 M/mm3 (3.80-5.20); White Blood Cell Count 13.35 K/mm3 (4.00-11.30)
[2023-12-07 04:49] LABS: Albumin, Blood 2.2 g/dL (3.4-5.0); Anion Gap 7 mmol/L (3-11); Blood Urea Nitrogen 11 mg/dL (8-24); Bun/Creatinine Ratio 12.1 (12.0-20.0); CO2, Blood 23 mmol/L (21-32); Calcium, Blood 7.2 mg/dL (8.5-10.1); Chloride, Blood 117 mmol/L (98-108); Creatinine, Blood 0.91 mg/dL (0.40-1.00); Glomerular Filtration Rate 66 (60-); Glucose, Blood 100 mg/dL (70-99); Phosphorus, Blood 1.1 mg/dL (2.5-4.9); Potassium, Blood 4.4 mmol/L (3.5-5.5); Sodium, Blood 143 mmol/L (136-145)
[2023-12-07 05:01] LABS: BAND PERCENT MAN 16 % (0-8); BASOPHILS PERCENT MAN 0 % (0-2); EOSINOPHILS PERCENT MAN 0 % (0-6); LYMPHOCYTES ABSOLUTE MAN 2.13 K/mm3 (0.84-5.20); LYMPHOCYTES PERCENT MAN 16 % (21-46); MONOCYTES ABSOLUTE MAN 0.66 K/mm3 (0.16-1.47); MONOCYTES PERCENT MAN 5 % (4-13); NEUTROPHILS ABSOLUTE MAN 10.54 K/mm3 (1.96-9.15); SEG NEUTROPHILS PERCENT MAN 63 % (41-73); TOTAL CELLS COUNTED 100
[2023-12-07] MEDS ORDERED: Sodium Phosphate 20 MM in Dextrose 5% 500 ML IV ONE (06:00)
--- NOTE | 2023-12-07 06:08 | NUR ---
SHIFT SUMMARY NO ACUTE CHANGES. REMAINS INTUBATED- AC/VC 18/385/5/35%. SEDATED WITH PROPOFOL AT 50MCG/KG/MIN. PERIODS OF AGITATION WITH REPOSITIONING/ORAL CARE. MEDICATED WITH FENTANYL 25MCG IV X 2 DOSES FOR COMFORT. MOVES ALL EXTREMITIES SPONTANEOUSL. OCCASIONALLY FOLLOWS SIMPLE COMMANDS. BILATERAL SOFT WRIST RESTRAINTS IN PLACE TO PREVENT SELF-EXTUBATION. MONITOR SHOWS NSR, RATE 70s-80s. LEVOPHED TITRATED BETWEEN 2-8MCG/MIN DURING SHIFT TO MAINTAIN MAP >65. NOW INFUSING AT 7MCG/MIN. NS INFUSING AT 100MLS/HR PER ORDER. OG TO LIS WITH DARK GREEN DRAINAGE. INCONTINENT OF MULTIPLE LOOSE BROWN STOOLS DURING SHIFT. WINSLOW PATENT AND DRAINING TO GRAVITY. HgB 6.[address] HOGAN- NEW ORDER TO TRANSFUSE 1 UNIT PRBC. PLAN OF CARE ONGOING.
--- NOTE | 2023-12-07 12:30 | NUR ---
REASSESSMENT PT CONTINUES WITH INTUBATION AND SEDATION. SHE WAKES TO TACTILE STIMULI AND BECOMES AGITATED, BUT CALMS BACK DOWN ONCE LEFT ALONE. HER LUNGS ARE COARSE, BUT CLEAR WITH SUCTIONING. SMAL AMT OF THICK, KIDD SPUTUM FROM ETT. SR WITH RATE IN THE 90S. LEVOPHED TITRATED OFF THIS MORNING AFTER RECEIVING 1 UNIT PRBC. CL YELLOW URINE IN WINSLOW. SMALL AMT OF DARK GREEN BILE FROM OGT. PT'S NIECE CALLED AND WAS GIVEN UPDATE. PT'S AT BEDSIDE THIS AFTERNOON AND HAS BEEN UPDATED.
[2023-12-07 15:53] LABS: Hematocrit 24.4 % (33.0-51.0); Hemoglobin 8.3 g/dL (11.5-16.0)
--- NOTE | 2023-12-07 16:47 | NUR ---
SHIFT SUMMARY PT INTUBATED AND SEDATED. PT WAS SUSTAINING MAPS GREATER THAN 65 AFTER RECEIVING 1 UNIT PRBC THIS MORNING SO PRESSORS TITRATED OFF. THIS AFTERNOON MAP DROPPED BELOW 60 SO PRESSORS RESTARTED. H/H CHECKED AND HAD RISEN APPROPRIATELY FOR 1 UNIT PRBC. PT'S L THIGH APPEARS UNCHANGED. CONTENTS FROM OG GREEN. LUNGS ARE CLEAR. SR. VOIDING CL YELLOW URINE.
[2023-12-07] MEDS ORDERED: Pantoprazole Sodium 40 MG Injection IV SCH (18:00)
[2023-12-07 21:15] LABS: Hematocrit 25.5 % (33.0-51.0); Hemoglobin 8.5 g/dL (11.5-16.0)
[2023-12-07] MEDS ORDERED: FAMO40 PO (22:39)
[2023-12-08] VITALS (95 sets, daily range): BP systolic 89–172; BP diastolic 43–82
[2023-12-08 01:35] LABS: Vancomycin, Trough 19.2 ug/mL (5.0-10.0)
[2023-12-08 04:17] LABS: BASOPHILS ABSOLUTE AUTO 0.03 K/mm3 (0.00-0.23); BASOPHILS PERCENT AUTO 0 % (0-2); EOSINOPHILS PERCENT AUTO 2 % (0-6); Hematocrit 27.6 % (33.0-51.0); Hemoglobin 9.2 g/dL (11.5-16.0); IMMATURE GRAN ABSOLUTE AUTO 0.22 K/mm3 (0.00-0.10); IMMATURE GRAN PERCENT AUTO 2 % (0-1); LYMPHOCYTES ABSOLUTE AUTO 0.98 K/mm3 (0.84-5.20); LYMPHOCYTES PERCENT AUTO 8 % (21-46); MONOCYTES ABSOLUTE AUTO 1.11 K/mm3 (0.16-1.47); MONOCYTES PERCENT AUTO 9 % (4-13); Mean Corpuscular HGB 31.3 pg (26.0-34.0); Mean Corpuscular HGB Conc 33.3 g/dL (31.5-36.5); Mean Corpuscular Volume 94 fL (80-100); Mean Platelet Volume 9.9 fL (9.1-12.4); NEUTROPHILS ABSOLUTE AUTO 10.47 K/mm3 (1.96-9.15); NEUTROPHILS PERCENT AUTO 80 % (41-73); Platelet Count 212 K/mm3 (150-400); RDW Coefficient Variation 17.7 % (11.7-14.2); RDW Standard Deviation 56.7 fL (35.1-46.3); Red Blood Cell Count 2.94 M/mm3 (3.80-5.20); White Blood Cell Count 13.11 K/mm3 (4.00-11.30)
[2023-12-08 04:38] LABS: Albumin, Blood 2.2 g/dL (3.4-5.0); Anion Gap 8 mmol/L (3-11); Blood Urea Nitrogen 9 mg/dL (8-24); Bun/Creatinine Ratio 12.4 (12.0-20.0); CO2, Blood 21 mmol/L (21-32); Calcium, Blood 6.9 mg/dL (8.5-10.1); Chloride, Blood 119 mmol/L (98-108); Creatinine, Blood 0.73 mg/dL (0.40-1.00); Glomerular Filtration Rate 86 (60-); Glucose, Blood 87 mg/dL (70-99); Phosphorus, Blood 1.8 mg/dL (2.5-4.9); Potassium, Blood 3.7 mmol/L (3.5-5.5); Sodium, Blood 144 mmol/L (136-145)
[2023-12-08] MEDS ORDERED: Potassium Phosphate Dibasic 30 MM in Dextrose 5% 500 ML IV ONE (06:05)
--- NOTE | 2023-12-08 06:19 | NUR ---
SHIFT SUMMARY NO ACUTE CHANGES. REMAINS INTUBATED- AC/VC 16/385/5/30%. SEDATED WITH PROPOFOL 40-50MCG/KG/MIN- NOW INFUSING AT 40MCG/KG/MIN. WITHDRAWS EXTREMITIES TO NOXIOUS STIMULI. NOT FOLLOWING COMMANDS. BILATERAL SOFT WRIST RESTRAINTS IN PLACE TO PREVENT SELF-EXTUBATION. MEDICATED WITH FENTANYL 25MCG IV X 2 DOSES. MONITOR SHOWS NSR, RATE 70s-90s. LEVOPHED OFF AT THIS TIME- BP STABLE. AFEBRILE. OG TO LIS WITH SMALL AMOUNT GREEN DRAINAGE. WINSLOW PATENT AND DRAINING TO GRAVITY. NS INFUSING AT 100MLS/HR PER ORDER. LEFT HIP DRSG INTACT. PHOSPHOROUS LEVEL IS LOW- CALLED TO MD. PLAN OF CARE ONGOING.
[2023-12-08] MEDS ORDERED: BusPIRone HCl 5 MG Tab PT SCH (10:39)
[2023-12-08] MEDS ORDERED: Venlafaxine HCl 25 MG Tab PT SCH (10:41)
--- NOTE | 2023-12-08 12:05 | NUR ---
REASSESSMENT PT INTUBATED AND SEDATED. SEDATION TURNED OFF FOR ABOUT 10 MINUTES THIS MORNING AND PT WAS OPENING EYES AND FOLLOWING DIRECTIONS TO SQUEEZE HANDS. PT'S RR WENT UP TO THE 30S AND PT'S BREATHING APPEARED LABORED. SHE NODDED WHEN ASKED IF SHE WAS SHORT OF BREATH SO SEDATION RESTARTED. LUNGS ARE CLEAR. SCANT SECRETIONS THIS MORNING. DR. MANRIQUEZ AND MARCELO OK'D TO CLAMP PT'S OGT AND START GIVING PO MEDS THROUGH IT. BOWEL TONES REMAIN HYPOACTIVE. 900ML OF CL YELLOW URINE OUT THIS MORNING. PT'S CAME IN AND WAS UPDATED BY DR. MANRIQUEZ. PT'S NIECE CALLED AND WAS UDPATED BY NURSING STAFF.
--- NOTE | 2023-12-08 16:49 | NUR ---
SHIFT SUMMARY PT REMAINS INTUBED AND SEDATED. HER LUNGS HAVE BEEN CLEAR. SCANT SECRETIONS FROM ETT. SR, BP STABLE. REMAINED OFF OF PRESSORS THIS SHIFT. OG CLAMPED AND NO CHANGE IN PT'S ABDOMINAL DISTENTION NOTED. WINSLOW WITH CL YELLOW URINE. PT MEDICATED A FEW TIMES THROUGHOUT THE SHIFT FOR AGITATION.
[2023-12-08] MEDS ORDERED: NS 250 ML IV PRN (20:10)
[2023-12-08] MEDS ORDERED: Mirtazapine 15 MG Tab PT SCH (21:00)
[2023-12-08] MEDS ORDERED: QUEtiapine Fumarate 100 MG Tab PT SCH (21:00)
[2023-12-08] MEDS ORDERED: dexmedeTOMIDine 100 ML IV SCH (21:20)
[2023-12-08] MEDS ORDERED: D5W-1/2NS 1,000 ML IV SCH (22:00)
--- NOTE | 2023-12-08 22:05 | NUR ---
ASSUMED CARE PT INTUBATED AND SEDATED; ROUSES TO VERBAL STIMULI, AND SQUEEZES HANDS UPON REQUEST. PT DOES NOT SHAKE HEAD WHEN ASKED AND ONLY NODS HEAD. IS NOT TOLERATING SEDATION VACATION AT THIS TIME, PT BECOMES TACHYPNEIC AND DESYNCHRONOUS W/ THE VENTILATOR. ABDOMEN IS SOFT AND PT DOES NOT GRIMACE W/ PALPATION AT THIS TIME, DOES NOT APPEAR DISTENDED. HOSPITALIST CALLED D/T LOW CBG AND FLUID SWITCHED TO D5 1/2NS.
[2023-12-09] VITALS (93 sets, daily range): BP systolic 80–167; BP diastolic 42–95
[2023-12-09 03:21] LABS: BASOPHILS ABSOLUTE AUTO 0.03 K/mm3 (0.00-0.23); BASOPHILS PERCENT AUTO 0 % (0-2); EOSINOPHILS ABSOLUTE AUTO 0.27 K/mm3 (0.00-0.68); EOSINOPHILS PERCENT AUTO 2 % (0-6); Hematocrit 25.7 % (33.0-51.0); Hemoglobin 8.4 g/dL (11.5-16.0); IMMATURE GRAN ABSOLUTE AUTO 0.14 K/mm3 (0.00-0.10); IMMATURE GRAN PERCENT AUTO 1 % (0-1); LYMPHOCYTES ABSOLUTE AUTO 0.96 K/mm3 (0.84-5.20); LYMPHOCYTES PERCENT AUTO 9 % (21-46); MONOCYTES ABSOLUTE AUTO 0.87 K/mm3 (0.16-1.47); MONOCYTES PERCENT AUTO 8 % (4-13); Mean Corpuscular HGB 31.1 pg (26.0-34.0); Mean Corpuscular HGB Conc 32.7 g/dL (31.5-36.5); Mean Corpuscular Volume 95 fL (80-100); Mean Platelet Volume 9.7 fL (9.1-12.4); NEUTROPHILS ABSOLUTE AUTO 9.01 K/mm3 (1.96-9.15); NEUTROPHILS PERCENT AUTO 80 % (41-73); Platelet Count 217 K/mm3 (150-400); RDW Coefficient Variation 17.2 % (11.7-14.2); RDW Standard Deviation 57.3 fL (35.1-46.3); White Blood Cell Count 11.28 K/mm3 (4.00-11.30)
[2023-12-09 03:37] LABS: Albumin, Blood 1.8 g/dL (3.4-5.0); Anion Gap 10 mmol/L (3-11); Blood Urea Nitrogen 7 mg/dL (8-24); Bun/Creatinine Ratio 9.7 (12.0-20.0); CO2, Blood 21 mmol/L (21-32); Calcium, Blood 7.2 mg/dL (8.5-10.1); Chloride, Blood 119 mmol/L (98-108); Creatinine, Blood 0.72 mg/dL (0.40-1.00); Glomerular Filtration Rate 88 (60-); Glucose, Blood 120 mg/dL (70-99); Phosphorus, Blood 2.3 mg/dL (2.5-4.9); Potassium, Blood 3.5 mmol/L (3.5-5.5); Sodium, Blood 146 mmol/L (136-145)
--- NOTE | 2023-12-09 06:30 | NUR ---
SHIFT SUMMARY PT REMAINS INTUBATED/SEDATED. ABDOMEN STILL SOFT AND NO GRIMACING FROM PT W/ PALPATION. LEFT THIGH/HIP REMAINS UNCHANGED FROM BEGINNING OF SHIFT (BRUISING AND EDEMA). LEVOPHED REINITIATED. NO OTHER ACUTE EVENTS OVERNIGHT.
[2023-12-09] MEDS ORDERED: Albumin (Human) 25gm/100ml 100 ML IV ONE (09:40)
[2023-12-09] MEDS ORDERED: NS 500 ML IV ONE (10:00)
[2023-12-09] MEDS ORDERED: Enoxaparin 40 MG/0.4 ML SYR SC SCH (10:00)
[2023-12-09] MEDS ORDERED: Potassium Phosphate Dibasic 30 MM in Dextrose 5% 500 ML IV STA (11:16)
--- NOTE | 2023-12-09 17:45 | NUR ---
SHIFT SUMMARY PT ON PROPOFOL, TITRATED DOWN. PT TITRATED OFF OF LEVOPHED, BECAME TACHYPNEIC WITH INCREASED ANXIETY AND PUT BACK ON LEVOPHED FOR A SHORT AMOUNT OF TIME. PT THEN TITRATED OFF LEVOPHED AGAIN. PRECEDEX STARTED. BLOOD PRESSURE REMAINED STABLE TRITRATED OFF LEVOPHED. REGULAR HEART RATE AND RHYTHM. BILATERAL DIMINISHED LUNG SOUNDS IN LOWER LOBES. ABDOMEN REMAINED TENDER WITH HYPOACTIVE BOWEL TONES. BRUSING ON THE INSIDE OF THE LEFT LEG.ADEQUATE URINE OUTPUT, SEE I&O'S FOR FURTHER DETAILS PT WAS RESPONSIVE DURING SPONTANEOUS BREATHING TEST. PLACED BACK ON REGUALR VENTILATOR SETTINGS. AT START OF SHIFT RASS WAS -3 BUT NOW IS -2.
--- NOTE | 2023-12-09 21:34 | NUR ---
ASSUMED CARE PT INTUBATED AND SEDATED W/ PROPOFOL AND PRECEDEX. PT ROUSING TO VERBAL STIMULI AND ABLE TO COMMUNICATE W/ NODDING/SHAKING HEAD. SQUEEZES HANDS UPON REQUEST. PT DENYING PAIN AT THIS TIME. PT INTERMITTENTLY AGITATED AND BECOMES TACHYPNEIC INTO THE 40-60'S; THERAPEUTIC COMMUNICATION AND MUSIC EFFECTIVE. ABDOMEN SOFT AND APPEARS NON PAINFUL AT THIS TIME; TUBE FEED AT GOAL RATE. LEFT HIP DRESSING EXUDATE MARKED W/ MUSTAPHA BY PREVIOUS RN, HAS NOT PROGRESSED PAST DEMARCATION. RESTING QUIETLY AT THIS TIME.
[2023-12-10] VITALS (89 sets, daily range): BP systolic 83–172; BP diastolic 42–126
[2023-12-10] MEDS ORDERED: Acetaminophen 325 MG TABLET PT PRN (01:20)
[2023-12-10 04:03] LABS: BASOPHILS ABSOLUTE AUTO 0.03 K/mm3 (0.00-0.23); BASOPHILS PERCENT AUTO 0 % (0-2); EOSINOPHILS ABSOLUTE AUTO 0.18 K/mm3 (0.00-0.68); EOSINOPHILS PERCENT AUTO 2 % (0-6); Hematocrit 23.5 % (33.0-51.0); Hemoglobin 7.8 g/dL (11.5-16.0); IMMATURE GRAN ABSOLUTE AUTO 0.13 K/mm3 (0.00-0.10); IMMATURE GRAN PERCENT AUTO 1 % (0-1); LYMPHOCYTES ABSOLUTE AUTO 1.08 K/mm3 (0.84-5.20); LYMPHOCYTES PERCENT AUTO 10 % (21-46); MONOCYTES ABSOLUTE AUTO 0.98 K/mm3 (0.16-1.47); MONOCYTES PERCENT AUTO 9 % (4-13); Mean Corpuscular HGB 31.7 pg (26.0-34.0); Mean Corpuscular HGB Conc 33.2 g/dL (31.5-36.5); Mean Corpuscular Volume 96 fL (80-100); Mean Platelet Volume 10.1 fL (9.1-12.4); NEUTROPHILS ABSOLUTE AUTO 8.64 K/mm3 (1.96-9.15); NEUTROPHILS PERCENT AUTO 78 % (41-73); Platelet Count 217 K/mm3 (150-400); RDW Coefficient Variation 16.5 % (11.7-14.2); RDW Standard Deviation 55.8 fL (35.1-46.3); Red Blood Cell Count 2.46 M/mm3 (3.80-5.20); White Blood Cell Count 11.04 K/mm3 (4.00-11.30)
--- NOTE | 2023-12-10 04:05 | NUR ---
UPDATE START OF SHIFT PT SELF-EXTUBATED PREVIOUS SHIFT; PRECEDEX HAD BEEN INITIATED BY PREVIOUS RN AND PLACED ON BIPAP. PT INITIALLY TACHYPNEIC, HYPERTENSIVE, AND TACHYCARDIC AT START OF SHIFT, BUT PRECEDEX WAS EFFECTIVE AND PT VS STABILIZED. ABG DRAWN BY RT AROUND 0150 AND PT HAD EXPRESSED TO RT THAT SHE WAS FEELING SOB AND WANTED TO BE ON HOSPICE. WHEN THIS RN ARRIVED IN ROOM PT WAS DYSPNEIC AND EXPRESSED DESIRE FOR A BREAK FROM BIPAP; ABG RESULT READ BACK AN PT WAS PLACED ON NC 7L; INFORMED PT THAT 5-10 MINUTE BREAK BEFORE BIPAP NEEDE TO BE PLACED BACK ON. PT ALSO EXPRESSED DESIRE TO BE ON HOSPICE TO THIS RN AN WHEN DISCUSSING POSSIBILITY OF REINTUBATION PT STATED NO. WITHIN 5 MINUTES OF PLACING PT ON NC PT BECAME TACHYCARDIC W/ HR 190-200'S. DR OHGAN CALLED AND CAME TO BEDSIDE; PT WAS PLACED BACK ON BIPAP. LABS DRAWN AND ATIVAN GIVEN PER ORDER. DR HOGAN INFORMED OF PT'S DESIRE FOR HOSPICE AND TO NOT BE REINTUBATED. DR HOGAN DISCUSSED W/ PT ABOUT DNR/DNI STATUS AND PT EXPRESSED DESIRE TO BE DNR. PT NODDING YES WHEN ASKED IF SHE UNDERSTOOD THAT SHE WOULD IF SHE NEEDED INTUBATION, CPR, ETC. AND DID NOT GET IT D/T DNR STATUS. PT IN DISTRESS, BUT FOLLOWED COMMANDS, STATED SHE WAS AT [facility]. DAUGHTER WAS CALLED TWICE TO INFORM ABOUT PT'S DESIRE W/ NO ANSWER. PT IS RESTING QUIETLY AT THIS TIME; HR 100'S, SPO2 >92%, AND SBP 110'S. DR HOGAN NOTIFIED OF BNP AND CURRENT VS W/ ORDERS TO PUT MAINTENANCE FLUIDS ON STANDBY W/ ORDER FOR ECHO TDAY.
[2023-12-10 04:19] LABS: Albumin, Blood 2.1 g/dL (3.4-5.0); Anion Gap 9 mmol/L (3-11); Blood Urea Nitrogen 9 mg/dL (8-24); Bun/Creatinine Ratio 12.6 (12.0-20.0); CO2, Blood 21 mmol/L (21-32); Calcium, Blood 7.3 mg/dL (8.5-10.1); Chloride, Blood 118 mmol/L (98-108); Creatinine, Blood 0.71 mg/dL (0.40-1.00); Glomerular Filtration Rate 89 (60-); Glucose, Blood 134 mg/dL (70-99); Magnesium, Blood 1.5 mg/dL (1.6-2.4); Potassium, Blood 3.6 mmol/L (3.5-5.5); Sodium, Blood 144 mmol/L (136-145)
[2023-12-10] MEDS ORDERED: Magnesium Sulf 2 GM/Water 50ML 50 ML IV ONE (05:35)
--- NOTE | 2023-12-10 06:06 | NUR ---
SHIFT SUMMARY PT RESTING QUIETLY. PT ON LEVOPHED THIS AM; PT BECAME HYPOTENSIVE AFTER 50MCG FENTANYL ADMIN; SECOND DOSE WAS GIVEN LATER D/T PT HAVING PAIN W/ 25MCG GIVEN AND PT AGAIN WAS HYPOTENSIVE. PRECEDEX AND PROPOFOL INFUSING. PT CONTINUES TO BECOME ANXIOUS INTERMITTENTLY BUT IS REDIRECTABLE. ABDOMEN CONTINUES TO BE SOFT AND PT SHAKING HEAD WHEN ASKED IF ABDOMEN HURTS. BRUISE ON INNER THIGH APPEARS UNCHANGED. EXUDATE ON DRESSING HAS NOT MOVED PAST DEMARCATED LINE.
--- NOTE | 2023-12-10 07:45 | NUR ---
ASSUMED CARE. PT INTUBATED AND SEDATED, VENT SETTINGS 16/385/5/40 FIO2. ETT TUBE IS 7.5 AT 22CM. PT RESPIRATIONS ARE EVEN AND UNLABORED ON VENT WITH SPO2 >96. CONTINUOUS CARDIAC MONITORING IN PLACE, NSR W/ SYSTOLIC BP >100, MAP >65. HR IN 90-100S. PT IS ON LEVOPHED 2MCG/MIN, PRECEDEX 1.0, PROPOFOL 10MCG/KG/MIN. NS TKO. TF INFUSING AT 10ML/HR WITH Q4H 100ML FREE WATER FLUSHES. [place]OW CATH PATENT AND DRAINING TO GRAVITY. PT MOVES HEAD TO VERBAL STIMULI. RESTING QUIETLY AT THIS TIME.
[2023-12-10] MEDS ORDERED: FentaNYL Citrate 50 MCG/ML 2 ML Injection IV PRN (10:35)
--- NOTE | 2023-12-10 11:20 | NUR ---
MOVED FROM BED TO RECLINER PT IS MORE ALERT AND AWAKE AFTER D/C PROPOFOL AND DECREASING PRECEDEX TO 0.8MCG/KG/HR. PT IS ABLE TO WRITE ON PAPER TO EXPRESS NEEDS, SHE WROTE "COLD" TO INDICATE SHE NEEDED MORE BLANKETS. SHE WILL SHAKE HER HEAD AND NOD TO EXPRESS NEEDS. PT IN RECLINER RESTING COMFORTABLY ON PILLOWS. 1233 - PT AT BEDSIDE UPDATED ON HER CONDITION. PT CALMER WITH HIM PRESENT.
[2023-12-10] MEDS ORDERED: CefTRIAXone Sodium 1,000 MG in NS 100 ML IV SCH (16:00)
[2023-12-10] MEDS ORDERED: Alteplase Recombinant 2 MG / Vial IV ONE (16:35)
[2023-12-10 16:37] LABS: Hematocrit 24.3 % (33.0-51.0); Hemoglobin 8.1 g/dL (11.5-16.0)
--- NOTE | 2023-12-10 18:03 | NUR ---
SHIFT SUMMARY. PT HAS BEEN INTUBATED AND SEDATED THIS SHIFT. SHE HAD SEDATION VACATION FOR MAJORITY OF MORNING. SHE WAS ALERT AND ORIENTED TO SELF AND SITUATION. SHE WAS ABLE TO WRITE QUESTIONS AND COMMUNICATE NEEDS. SHE HAS BEEN ON AC/VC 16/ AND SWITCHING TO SPONTANEOUS 11/22 AT 30% FIO2. HER SPO2 IS >96 AND RESPIRATIONS ARE EVEN AND UNLABORED. SHE HAS EPISODES OF ANXIETY WHERE SHE IS TACHYPNEIC RR 30-40S AND COUGHS AGAINST VENT. SHE CALMS WITH VERBAL REASSURANCE AND MEDICATION PER EMAR FOR DISCOMFORT. SHE HAS SMALL AMOUNTS OF KIDD SECRETIONS FROM ETT TUBE. SCANT SECRETIONS FROM OROPHARYNX W/ SOME BLEEDING RED SPOTS ON THE ROOF OF HER MOUTH ON ORAL CARE. PT IS ON CONTINIOUS CARDIAC MONITORING IN NSR. SYSTOLIC BP >100, MAP >65 ON LEVOPHED 1MCG/MIN. BP HAS BEEN LABILE. SHE IS ON PRECEDEX 1.2MCG/KG/HR, PROPOFOL 20MCG/KG/MIN. PT IS ON PIVOT 1.5 TF AT 10MLHR, WITH Q4H 100ML FLUSHES. NO BM THIS SHIFT. WINSLOW CATH IS PATENT AND DRAINING DARK YELLOW URINE TO GRAVITY.
--- NOTE | 2023-12-10 20:20 | NUR ---
ASSUMPTION OF CARE PT LYING IN BED INTUBATED AND SEDATED. PT AWAKES TO VOICE AND FOLLOWS SOME COMMANDS SUCH NODDING HEAD, SQUEEZING HAND AND ATTEMPTING TO WRITE WORDS ON PAPER (UNSUCCESSFUL). PROPOFOL INFUSING AT 20 MCG/KG/MIN AND PRECEDEX AT 1.2 MCG/KG/HR. RASS 0. HR NSR IN 60 AND 70S WITH STABLE TO SOFT BPS ON 1 MCG/MIN OF NOREPINEPHRINE. ALL INFUSIONS Y SITED INTO LEFT ARM PICC LINE THAT HESITANTLY FLUSHES AND DRAWS BACK BLOOD AT [place]. PT ON SPONTANEOUS VENT SETTING AT START OF SHIFT AND SWITCHED BACK TO ACVC SETTINGS DURING ASSESSMENT. ETT POSITION CONFIRMED. NASOGASTRIC SUMP TUBE IN PLACE THROUGH NASOPHARYNGEAL PASSAGE- THIRD BLACK DOT IS AT DISTAL NARE. WINSLOW IN PLACE FOR RETENTION VS CRITICAL I/OS DRAINING YELLOW URINE. RESTRAINTS IN PLACE BUT LOOSE. PT PAIN TO BE ADDRESSED WITH PRN TYLENOL AND FENTANYL.
[2023-12-10] MEDS ORDERED: Lactobacil 2-S.Thermo-Bifido 1 1 Cap PO SCH (21:00)
--- NOTE | 2023-12-10 21:30 | NUR ---
DIET/PO INTAKE UPDATE PT CONSUMED 100% OF ENTREE DINNER, PLUS APPLESAUCE AND WATER AND DECAF COFFEE, WITHOUT INCIDENT.
[2023-12-11] VITALS (64 sets, daily range): BP systolic 83–178; BP diastolic 45–130
[2023-12-11 04:10] LABS: BASOPHILS ABSOLUTE AUTO 0.02 K/mm3 (0.00-0.23); BASOPHILS PERCENT AUTO 0 % (0-2); EOSINOPHILS ABSOLUTE AUTO 0.24 K/mm3 (0.00-0.68); EOSINOPHILS PERCENT AUTO 2 % (0-6); Hematocrit 24.6 % (33.0-51.0); Hemoglobin 8.1 g/dL (11.5-16.0); IMMATURE GRAN ABSOLUTE AUTO 0.12 K/mm3 (0.00-0.10); IMMATURE GRAN PERCENT AUTO 1 % (0-1); LYMPHOCYTES ABSOLUTE AUTO 1.18 K/mm3 (0.84-5.20); LYMPHOCYTES PERCENT AUTO 12 % (21-46); MONOCYTES ABSOLUTE AUTO 0.73 K/mm3 (0.16-1.47); MONOCYTES PERCENT AUTO 7 % (4-13); Mean Corpuscular HGB 31.2 pg (26.0-34.0); Mean Corpuscular HGB Conc 32.9 g/dL (31.5-36.5); Mean Corpuscular Volume 95 fL (80-100); Mean Platelet Volume 9.9 fL (9.1-12.4); NEUTROPHILS ABSOLUTE AUTO 7.76 K/mm3 (1.96-9.15); NEUTROPHILS PERCENT AUTO 77 % (41-73); Platelet Count 252 K/mm3 (150-400); RDW Standard Deviation 54.3 fL (35.1-46.3); White Blood Cell Count 10.05 K/mm3 (4.00-11.30)
[2023-12-11 04:29] LABS: Albumin, Blood 1.8 g/dL (3.4-5.0); Anion Gap 11 mmol/L (3-11); Blood Urea Nitrogen 13 mg/dL (8-24); Bun/Creatinine Ratio 18.2 (12.0-20.0); CO2, Blood 20 mmol/L (21-32); Calcium, Blood 7.4 mg/dL (8.5-10.1); Chloride, Blood 116 mmol/L (98-108); Creatinine, Blood 0.72 mg/dL (0.40-1.00); Glomerular Filtration Rate 88 (60-); Glucose, Blood 101 mg/dL (70-99); Magnesium, Blood 1.7 mg/dL (1.6-2.4); Phosphorus, Blood 2.3 mg/dL (2.5-4.9); Potassium, Blood 3.5 mmol/L (3.5-5.5); Sodium, Blood 143 mmol/L (136-145)
[2023-12-11] MEDS ORDERED: Magnesium Sulf 2 GM/Water 50ML 50 ML IV ONE (06:15)
[2023-12-11] MEDS ORDERED: Potassium Phosphate Dibasic 20 MM in Dextrose 5% 500 ML IV ONE (06:15)
--- NOTE | 2023-12-11 07:12 | NUR ---
SHIFT SUMMARY PT LYING IN BED INTUBATED AND SEDATED. PT AWAKES TO VOICE AND FOLLOWS SOME COMMANDS SUCH NODDING HEAD, SQUEEZING HAND AND ATTEMPTING TO WRITE WORDS ON PAPER (UNSUCCESSFUL). PROPOFOL INFUSING AT 20 MCG/KG/MIN AND PRECEDEX AT 1.0 MCG/KG/HR. RASS -1. PT OCCASIONALLY WAKES UP IN A STATE OF PANIC/ANXIETY AND RESPONDS WELL TO REDIRECTION. HR NSR IN 60 AND 70S WITH STABLE TO SOFT BPS ON 1 MCG/MIN OF NOREPINEPHRINE. ALL INFUSIONS Y SITED INTO LEFT ARM PICC LINE THAT HESITANTLY FLUSHES AND DRAWS BACK BLOOD AT [place]. PT ON ACVC 385ML 16/MIN 5.0 PEEP AND 30%FIO2. NASOGASTRIC SUMP TUBE IN PLACE THROUGH NASOPHARYNGEAL PASSAGE- THIRD BLACK DOT IS AT DISTAL NARE. WINSLOW IN PLACE FOR RETENTION VS CRITICAL I/OS DRAINING YELLOW URINE. RESTRAINTS IN PLACE BUT LOOSE. PT PAIN HAS BEEN ADDRESSED WITH PRN TYLENOL AND FENTANYL. = =
--- NOTE | 2023-12-11 10:47 | NUR ---
ASSUMED CARE PT IS INTUBATED/SEDATED, RESPONDS TO VERBAL STIMULI BUT DROWSY. VENT SETTINGS 16/385/5/30%, SATS IN THE 90'S, L/S CLEAR/DIM IN BASES. PROPOFOL INFUSING AT 20MCG/KG/HR ON CONTINOUS CARDIAC MONITORING, SR W/ HR IN THE 90-100'S. LEVO INFUSING AT 1MCG/MIN. MAPS AROUND 65. NGT IN PLACE, TF INFUSING AT 10ML/HR. WINSLOW PATENT AND DRAINING TO GRAVITY. L HIP FX, DRESSINGS IN PLACE ARE C/D/I.
--- NOTE | 2023-12-11 10:56 | NUR ---
EXTUBATION NOTE PT WAS EXTUBATED AT 1030, TOLERATED WELL. ON 4L NC, SATS INT HE 90'S, HR IN THE 110'S. DENIES CP/SOB. WEAK PRODUCTIVE COUGH. L/S COARSE. C/O SORE THROAT. PT STATES SHE FEELS BETTER WITH ETT OUT. ABLE TO SPEAK 3-5 WORDS AT A TIME. NO ACUTE EVENTS, CALL LIGHT IN REACH.
--- NOTE | 2023-12-11 17:55 | NUR ---
SHIFT SUMMARY PT IS UP IN CHAIR, ALERT AND ORIENTED. RESPONDING TO QUESTIONS APPROPRIATLY AND USING CALL LIGHT APPROPRIATLY. ON 4L NC, SATS IN THE 90'S. DENIES SOB. WEAK COUGH. USING SUCTION INDEPENDENTLY. ON CONTINUOUS LAWN AND GARDEN TECHNICIAN, SINUS TACH IN THE 110-120'S SINCE EXTUBATION. DENIES CP/PRESSURE. MAPS > 65. HYPOACTIVE BOWEL TONES, FIRM ABD ON PALPATION, DENIES PAIN. REPORTED PASSING GAS. NO BM THIS SHIFT. WINSLOW PATENT AND DRAINING TO GRAVITY. L HIP FX DRESSING C/D/I. PAIN MANAGED PER EMAR WITH RELIEF. TMAX 99.5, MEDICATED WITH TYLENOL PRN. NGT TAKEN OUT, TOLERATING PO INTAKE W/O N/V. NO ACUTE EVENTS THIS SHIFT.
--- NOTE | 2023-12-11 21:00 | NUR ---
ASSUMPTION OF CARE PT LYING IN BED ALERT AND ORIENTED TO ALL. VOICE IS SOFT. POST EXTUBATIOUN TODAY. PT FOLLOWS COMMANDS AND IS COOPERATIVE. HR SINUS TACHY IN 110S TO 120S WITH STABLE TO ELEVATED BPS. PT SATURATIONS IN 90S ON 3-5L NC. OCCASIONAL SENSATION OF SOB AFTER OXYGEN DECREASED TO 3L. MOIST COUGH WITH PT SELF-SUCTION. PT EDUCATED ON FLUTTER AND INCENTIVE SPIROMETER BY RT. NO BM SO FAR BUT FLATULENCE PRESENT. NO AB PAIN. WINSLOW IN PLACE FOR RETENTION VS CRITICAL I/OS DRAINING YELLOW URINE. PT PAIN TO BE ADDRESSED WITH PRN TYLENOL AND FENTANYL. FENTANYL IS PROVIDING MILD, TEMPORARY (10-20 MIN) PAIN AMELIORATION. PT HAS CALL LIGHT. = =
[2023-12-12] VITALS (16 sets, daily range): BP systolic 99–165; BP diastolic 51–101
[2023-12-12] MEDS ORDERED: OxyCODONE HCL 5 MG TAB PO PRN (01:30)
--- NOTE | 2023-12-12 01:30 | NUR ---
PAIN PT CONTINUES TO C/O LEFT LEG/HIP PAIN AND HEADACHE DESPITE Q2-3H FENTANYL DOSES AND PO TYLENOL. DR. STORY NOTIFIED- NEW ORDER RECEIVED.
[2023-12-12 04:27] LABS: BASOPHILS ABSOLUTE AUTO 0.04 K/mm3 (0.00-0.23); BASOPHILS PERCENT AUTO 0 % (0-2); EOSINOPHILS PERCENT AUTO 2 % (0-6); Hematocrit 28.1 % (33.0-51.0); Hemoglobin 9.2 g/dL (11.5-16.0); IMMATURE GRAN ABSOLUTE AUTO 0.12 K/mm3 (0.00-0.10); IMMATURE GRAN PERCENT AUTO 1 % (0-1); LYMPHOCYTES ABSOLUTE AUTO 1.56 K/mm3 (0.84-5.20); LYMPHOCYTES PERCENT AUTO 11 % (21-46); MONOCYTES PERCENT AUTO 7 % (4-13); Mean Corpuscular HGB 31.7 pg (26.0-34.0); Mean Corpuscular HGB Conc 32.7 g/dL (31.5-36.5); Mean Corpuscular Volume 97 fL (80-100); Mean Platelet Volume 9.8 fL (9.1-12.4); NEUTROPHILS ABSOLUTE AUTO 10.86 K/mm3 (1.96-9.15); NEUTROPHILS PERCENT AUTO 79 % (41-73); Platelet Count 366 K/mm3 (150-400); RDW Coefficient Variation 15.6 % (11.7-14.2); RDW Standard Deviation 54.7 fL (35.1-46.3); White Blood Cell Count 13.68 K/mm3 (4.00-11.30)
[2023-12-12 04:40] LABS: Albumin, Blood 2.4 g/dL (3.4-5.0); Anion Gap 12 mmol/L (3-11); Blood Urea Nitrogen 10 mg/dL (8-24); Bun/Creatinine Ratio 13.8 (12.0-20.0); CO2, Blood 23 mmol/L (21-32); Calcium, Blood 8.1 mg/dL (8.5-10.1); Chloride, Blood 114 mmol/L (98-108); Creatinine, Blood 0.72 mg/dL (0.40-1.00); Glomerular Filtration Rate 88 (60-); Glucose, Blood 80 mg/dL (70-99); Phosphorus, Blood 2.7 mg/dL (2.5-4.9); Potassium, Blood 3.8 mmol/L (3.5-5.5); Sodium, Blood 145 mmol/L (136-145)
--- NOTE | 2023-12-12 07:14 | NUR ---
SHIFT SUMMARY PT LYING IN BED ALERT AND ORIENTED TO ALL. VOICE IS SOFT. PT FOLLOWS COMMANDS AND IS COOPERATIVE. HR SINUS TACHY IN 110S WITH STABLE TO ELEVATED BPS. PT SATURATIONS IN 90S ON 3-5L NC. OCCASIONAL SENSATION OF SOB AFTER OXYGEN DECREASED TO 3L. MOIST COUGH BECAME MORE MOIST TOWARDS END OF SHIFT WITH NEW ONSET SOB AT 0615. WHEEZING HEARD ON AUSCULTATION. RT CALLED AND DUONEB TREATMENT ADMINISTERED. NO BM. FLATULENCE PRESENT. NO AB PAIN. WINSLOW IN PLACE FOR RETENTION VS CRITICAL I/OS DRAINING SUBSTANTIAL YELLOW URINE. PT PAIN WAS ADDRESSED WITH PRN TYLENOL FENTANYL, AND LATER, ROXICODONE WHICH SEEMED MOST EFFECTIVE. PT REMINDED NURSE OF OCCASIONAL ITCHING ENGENDERED BY CERTAIN OPIATES. SHE ALWAYS SAID THAT SHE DIDN'T SLEEP WELL BECAUSE SHE NORMALLY TAKES 0.5MG OF LORAZEPAM EACH NIGHT. BOTH OF THESE FINDING WERE JUST BEFORE SHIFT CHANGE AND A PROVIDER WAS NOT NOTIFIED BY THIS NURSE. PT HAS CALL LIGHT.
--- NOTE | 2023-12-12 08:10 | NUR ---
AM NOTE... ASSUMED CARE OF PT AT 0700, PT IS A&Ox4 WITH EPISODES OF BEING PARANOID AND ANXIOUS. PT IS IN ST IN THE 100'S-120'S BP IS STABLE WITH SBPs 130'S-150'S. PT HAS DEPENDENT EDEMA TO HER BUE WHICH HAS IMPROVED FROM YESTERDAY. 1+ TO HER LEFT UPPER THIGH. PT IS ON 4L NC WITH O2 SATS>90% L/S HAVE INCREASED INSP. AND EXP WHEEZES T/O MORE SO ON THE RIGHT THAN THE LEFT. RHONCHI HEARD T/O DIM IN THE BASES. RR IS IN THE 20'S. BT PRESENT AND HYPOACTIVE ABD IS FIRM TO PALPATION PT DENIES ABD PAIN. PT DOES STATE SHE IS PASSING GAS. WINSLOW IS PATENT AND DRAINING TO GRAVITY. WILL CONTINUE TO MONITOR.
[2023-12-12] MEDS ORDERED: Ipratropium/Albuterol SulF 2.5-0.5MG/3 ML Amp INH SCH (11:20)
[2023-12-12] MEDS ORDERED: Alteplase Recombinant 2 MG / Vial IV ONE (16:00)
--- NOTE | 2023-12-12 17:59 | NUR ---
SHIFT SUMMARY PT IS A&OX4, RESPONDING AND CALLING APPROPRIATLY. ON 7L NC NOW, WHEEZING T/O. WAS TITRATED DOWN TO 2L BUT STARTED TO DISPLAY INCREASED WOB AFTER LINEN CHANGE. SATS IN THE 90'S, DENIES SOB AT THIS TIME. SCHEDULED & PRN NEB TX TO MANAGE. ON CONTINUOUS VEGETABLE LOADER MACHINE OPERATOR, SINUS TACH HR 100-120'S. DENIES CP. NO BM THIS SHIFT, PASSING GAS. WINSLOW IN PLACE, PATENT AND DRAINING TO GRAVITY. PAIN MANAGED PER EMAR WITH RELIEF. PICC DRESSING CHANGED THIS SHIFT. CATHFLOW ADMINISTERED W/ SOME SUCCESS, POSITIONAL TO FLUSH. NO ACUTE EVENTS. CALL LIGHT IN REACH.
--- NOTE | 2023-12-12 20:00 | NUR ---
ASSUMPTION OF CARE PT LYING IN BED ALERT AND ORIENTED. PT IS AFEBRILE. PAIN IS 5/10 IN LEFT LEG. WILL TREAT WITH PRN MEDS PER APR. HR IS ELEVATED BUT SINUS, RATE 120S. BP STABLE. RESPIRATIONS ARE LABORED WITH USE OF ACCESSORY MUSCLES. DURING ASSESSMENT, PT SWITCHED TO HIFLO NC 6L/MIN PRODUCING SATURATIONS IN MID TO LOW 90S. PT GETS ANXIOUS EASILY, AND RESPIRATIONS ELEVATE IN [place]. PT NOTES SUBJECTIVE DYSPNEA. PT RETAUGHT USE OF INCENTIVE SPIROMETER AND FLUTTER VALVE. NO CHEST PRESSURE. NO ABDOMINAL PAIN. NO BM YET BUT PT REPORTS PASSING GAS. WINSLOW IS DRAINING YELLOW URINE TO GRAVITY. BANDAGES/DRESSINGS FROM FEMUR SURGERY ARE CLEAN AND DRY WITH MINIMAL DRIED BLOOD. LATERAL THIGH AND LEFT GROIN ECCYMOSIS CONTINUE TO HEAL. PT LEFT WITH CALL LIGHT HANDY.
[2023-12-13] VITALS (11 sets, daily range): BP systolic 102–173; BP diastolic 53–94
--- NOTE | 2023-12-13 07:23 | NUR ---
SHIFT SUMMARY PT LYING IN BED ALERT AND ORIENTED. PT IS AFEBRILE. PAIN IS 5/10 IN LEFT LEG. WILL TREAT WITH PRN MEDS PER APR. HR IS ELEVATED BUT SINUS, RATE 120S. BP STABLE. RESPIRATIONS ARE LABORED WITH USE OF ACCESSORY MUSCLES. HIFLO NC 6L/MIN PRODUCING SATURATIONS IN LOW 90S. PT GETS ANXIOUS EASILY, AND RESPIRATIONS ELEVATE IN T[place]DEM. PT NOTES CONTINUED SUBJECTIVE DYSPNEA. USE OF INCENTIVE SPIROMETER AND FLUTTER VALVE REINCENTIVIZED. NO CHEST PRESSURE. NO ABDOMINAL PAIN. NO BM YET BUT PT REPORTS PASSING GAS. WINSLOW IS DRAINING YELLOW URINE TO GRAVITY. BANDAGES/DRESSINGS FROM FEMUR SURGERY ARE CLEAN AND DRY WITH MINIMAL DRIED BLOOD. LATERAL THIGH AND LEFT GROIN ECCYMOSIS CONTINUE TO HEAL. PT LEFT WITH CALL LIGHT HANDY. REPORT GIVEN TO ONCOMING NURSE.
--- NOTE | 2023-12-13 08:00 | NUR ---
ASSUMED CARE BEDSIDE REPORT FROM KIM DANIELLE AT 0700. PT RESTING IN BED. A&OX 3. FOLLOWS COMMANDS. ABLE TO MAKE NEEDS KNOWN. PT c LABORED, TACHYPNIC RESP. LUNGS COARSE c EXP WHEEZES THROUGHOUT. MOIST COUGH. SPEAKING IN SHORT SENTENCES. UNABLE TO SAFETLY TAKE PO INTAKE D/T WOB. O2 VIA HFNC AT 9L. O2 SATS >93%. ST, RATE 100-130'S. BP STABLE. AQUACEL TO LEFT LATERAL HIP, DRESSING C/D/I, SMALL AREA OF DRAINAGE MARKED. ECCHYMOSIS TO LEFT HIP AND GROIN, SWELLING TO LEFT KNEE. ABD ROUND, SOFT, NON TENDER. BT X 4. PO HELD D/T ASPIRATION RISK. [place] PATENT, DRAINING TO GRAVITY. [place] [facility] [place] C/D[place]. WILL CONTINUE PLAN OF CARE.
--- NOTE | 2023-12-13 10:31 | NUR ---
Pt. is awake and welcomes my visit. Pt. verbalizes that she remembers this conservation technician from a previous hospital stay. Facilitated a life review and prayed with Pt. Pt. displays evidence of being alert and engaged. Pt. verbalized gratitude for the spiritual care visit.
--- NOTE | 2023-12-13 16:59 | NUR ---
SHIFT SUMMARY/TRANSFER TO PCU PT A&OX 4. ABLE TO MAKE NEEDS KNOWN. PT NPO p BARIUM SWALLOW. DOBHOFF PLACED TO LEFT NARE, 60 CM. PIVOT 1.5 STARTED AT 10 ML/HR c 30 ML FLUSHES q4. TOLERATED WELL. O2 TITRATED FROM 8L TO 4L VIA HFNC. LUNGS CONTINUE TO BE COARSE c EXP WHEEZES. WOB IMPROVED SINCE THIS AM. PT MOTIVATED TO USE IS AND FLUTTER VALVE. ABD DISTENDED, ROUND, GENERALIZED TENDERNESS, HYPOACTIVE BT. SUPPOSITORY GIVEN THIS SHIFT, ONE SMALL BM. WINSLOW REMOVED AT APPROX 1100, BLADDER SCAN AT 1600 220 ML OF URINE. PT DENIES NEED TO VOID AT THIS TIME. PICC TO LEANN, DRESSING C/D/I. REPORT TO ADRIANO DANIELLE. PT TRANSFERRED TO PCU 11.
--- NOTE | 2023-12-13 17:30 | NUR ---
ASSUMED CARE AT 1715. PT TRANSFERS TO PCU FROM ICU. PT IS ALERT AND ORIENTED, ON 4L HF, SP02 REMAINING ABOUT 90%. SYSTOLIC 140S, HR 110S. BLADDER SCAN SHOWS ABOUT 400ML OF URINE IN BLADDER. PT REQUIRED TWO PERSON ASSIST FROM BED TO BEDSIDE COMMODE AND REQUIRED 10L HF NC TO KEEP SP02 GREATER THAN 90% WHILE AMBULATING. PT MOTIVATED AND WILLING TO COOPERATE WITH CARE. NOTABLE BRUISING ON INSIDE OF LEFT THIGH NEAR INCISION SITE. PT MAKES NEEDS KNOWN AND COOPERATES WITH CARE. SMALL AMOUNT OF FLATULENCE, BUT NO BM AND PT UNABLE TO VOID.
[2023-12-14] VITALS: BP 138/68
--- NOTE | 2023-12-14 02:24 | NUR ---
UPDATE CUTTER TENDER ALERTED TO THIS NURSE THAT PT HAD PULLED OUT HER DOBHOFF WHILE ASLEEP. PT EXPRESSED THAT SHE DOES NOT WANT TO HAVE ANOTHER DOBHOFF INSERTED AND UNDERSTANDS THAT IF NOT REINSERTED SHE WILL NOT BE ABLE TO RECEIVE NUTRITION OR MEDICATION SINCE SHE IS STRICTLY NPO. PT UNDERSTANDS THIS AND WOULD LIKE TO SPEAK WITH THE HOSPITALIST IN THE AM REGARDING HER PLAN OF CARE. MD NOTIFIED OF THIS. NO NEW ORDERS AT THIS TIME.
[2023-12-14 03:41] VITALS: BP 167/85
--- NOTE | 2023-12-14 05:27 | NUR ---
SHIFT SUMMARY PT IS A&O X4, ABLE TO MAKE NEEDS KNOWN. VSS, AFEBRILE, SPO2 >90% ON 40L AIRVO. PT WITH COARSE CRACKLES T/O LUNGS, SHE HAS A WEAK COUGH. PT HAD TO BE STRAIGHT CATHED ONCE THIS SHIFT DUE TO URINARY RETENTION. PT HAS ATTEMPTED TO VOID SEVERAL TIMES BUT HAS BEEN UNSUCCESSFUL. PT PLANS TO SPEAK WITH HOSPITALIST TODAY REGARDING PLAN OF CARE DUE TO HER REFUSAL TO REPLACE DOBHOFF THAT WAS ACCIDENTALLY PULLED WHILE SHE WAS SLEEPING LAST NIGHT. SHE IS RESTING QUIETLY IN BED, BREATHING IS EVEN AND UNLABORED, CALL LIGHT IN REACH.
[2023-12-14 07:40] VITALS: BP 166/78
--- NOTE | 2023-12-14 08:32 | NUR ---
ASSUMPTION OF CARE: THIS RN ASSUMED CARE OF PT AT 0715, BEDSIDE REPORT FROM RADHA DANIELLE. PT A/OX4, SITTING UP IN CHAIR ON AIRVO. VSS THIS AM. PER REPORT, PT'S DOBHOFF WAS PULLED EARLY THIS MORNING. PT VOICES UNDERSTANDING OF BENEFITS OF HAVING DOBHOFF REPLACED BUT IS REFUSING AT THIS TIME. THIS RN PROVIDED EDUCATION REGARDING NPO STATUS, NUTRITION, AND MEDICATION ADMINISTRATION; PT STATES "JUST STOP BUGGING ME ABOUT IT." THIS RN ATTEMPTED TO PROVIDE ORAL CARE VIA SUCTION, PT REFUSED. PT STATES "LET ME CALL MY , I WANT TO GO HOME." PT ON PHONE W/ AT THIS TIME, SITTING UP IN CHAIR. CALL LIGHT IN REACH.
[2023-12-14] MEDS ORDERED: Folic Acid 1 MG TAB PT SCH (09:00)
[2023-12-14] MEDS ORDERED: Thiamine HCl 100 MG Tab PT SCH (09:00)
[2023-12-14 09:15] LABS: BASOPHILS ABSOLUTE AUTO 0.03 K/mm3 (0.00-0.23); BASOPHILS PERCENT AUTO 0 % (0-2); EOSINOPHILS ABSOLUTE AUTO 0.09 K/mm3 (0.00-0.68); EOSINOPHILS PERCENT AUTO 1 % (0-6); Hematocrit 26.7 % (33.0-51.0); Hemoglobin 8.7 g/dL (11.5-16.0); IMMATURE GRAN ABSOLUTE AUTO 0.07 K/mm3 (0.00-0.10); IMMATURE GRAN PERCENT AUTO 1 % (0-1); LYMPHOCYTES ABSOLUTE AUTO 0.84 K/mm3 (0.84-5.20); LYMPHOCYTES PERCENT AUTO 6 % (21-46); MONOCYTES ABSOLUTE AUTO 0.99 K/mm3 (0.16-1.47); MONOCYTES PERCENT AUTO 7 % (4-13); Mean Corpuscular HGB 31.2 pg (26.0-34.0); Mean Corpuscular HGB Conc 32.6 g/dL (31.5-36.5); Mean Corpuscular Volume 96 fL (80-100); Mean Platelet Volume 9.8 fL (9.1-12.4); NEUTROPHILS PERCENT AUTO 85 % (41-73); Platelet Count 459 K/mm3 (150-400); RDW Coefficient Variation 15.2 % (11.7-14.2); RDW Standard Deviation 52.8 fL (35.1-46.3); Red Blood Cell Count 2.79 M/mm3 (3.80-5.20); White Blood Cell Count 13.32 K/mm3 (4.00-11.30)
[2023-12-14 09:34] LABS: Albumin, Blood 2.4 g/dL (3.4-5.0); Albumin/Globulin Ratio 0.6 (0.8-1.8); Bun/Creatinine Ratio 13.7 (12.0-20.0); Calcium, Blood 8.5 mg/dL (8.5-10.1); Creatinine, Blood 0.58 mg/dL (0.40-1.00); Globulin, Blood 3.9 g/dL (2.2-4.0); Magnesium, Blood 1.6 mg/dL (1.6-2.4); Phosphorus, Blood 1.4 mg/dL (2.5-4.9); Potassium, Blood 3.3 mmol/L (3.5-5.5); Total Protein, Blood 6.3 g/dL (6.4-8.2)
[2023-12-14 12:32] VITALS: BP 155/109
[2023-12-14] MEDS ORDERED: Potassium Phosphate Dibasic 30 MM in Dextrose 5% 500 ML IV STA (14:18)
--- NOTE | 2023-12-14 14:59 | NUR ---
PT LIKES TO BE ADDRESSED "BRYNN". PROVIDED PT WITH BOOK, HARD CHOICES FOR LOVING PEOPLE, TO REVIEW TUBE FEEDINGS AND PALLIATIVE CARE. PT TALKED A GREAT DEAL ABOUT HER HEALTH CHALLENGES SINCE JANUARY OF 2022. BRYNN REPORTS BEING TIRED OF BEING SICK. SHE DOES NOT WANT TO RESTART A DOBHOFF. REVIEWED SPEECH TX RECOMMENDATIONS WITH HER. PT'S HSBD, JULIA WILL BE COMING IN TO SEE THE PATIENT THIS AFTERNOON FOR GOC CONVERSATION.
[2023-12-14] MEDS ORDERED: Fluconazole 200MG/Iso-Sod 100M 100 ML IV SCH (15:00)
--- NOTE | 2023-12-14 15:38 | NUR ---
UPDATE: PT'S SPOUSE AT BEDSIDE AT THIS TIME. PT STATES "I JUST WANT TO EAT AND DRINK, I CAN'T LIVE THIS WAY." PT CONTINUES TO REFUSE DOBHOFF PLACEMENT. DISCUSSED TREATMENT FOR POSSIBLE THRUSH & SUBSEQUENT DOBHOFF PLACEMENT; PT CONTINUES TO REFUSE. PT REPORTS THAT HER WISHES ARE TO BE ABLE TO GO HOME AND HAVE "BETTER QUALITY OF LIFE." PALLIATIVE CARE RN UPDATED. MD HARRIS NOTIFIED, PLANS FOR MD TO COME TO BEDSIDE FOR GOALS OF CARE DISCUSSION THIS AFTERNOON.
[2023-12-14] MEDS ORDERED: LORazepam 2 MG/ML 1ML Injection IV ONE (16:20)
[2023-12-14 16:37] VITALS: BP 159/71
--- NOTE | 2023-12-14 17:14 | NUR ---
END OF SHIFT NOTE: SEE PREVIOUS NOTES FOR UPDATES T/O THE DAY. CARE CONFERENCE W/ PT, SPOUSE, PHYSICIAN, AND THIS RN THIS AFTERNOON. RISKS/BENEFITS OF FULL TREATMENT VERSUS COMFORT CARE DISCUSSED. PT VOICES THAT SHE IS UNSURE OF HER WISHES AT THIS TIME AND REQUESTS MORE TIME TO THINK ABOUT IT. SHE CONTINUES TO REFUSE DOBHOFF PLACEMENT; EDUCATION PROVIDED REGARDING INABILITY TO ADMINISTER NUTRITION & MEDICATIONS AT THIS TIME, PT VOICES UNDERSTANDING AND WISHES TO DISCUSS IN AM. PT REMAINS STRICT NPO, ORAL CARE PROVIDED WHEN PT AGREEABLE. VSS. HR 100'S, SINUS TACH ON TELE. SBP 150-160'S, DENIES CHEST PAIN/PRESSURE. SPO2 >90% ON AIRVO 30L 37% FIO2. RR 20'S. WET NONPRODUCTIVE COUGH PRESENT. PT UP TO CHAIR & BSC T/O SHIFT W/ 2P ASSIST W/ GB & FWW. PT ANXIOUS THIS PM, 1X DOSE ATIVAN ADMINISTERED PER EMAR W/ RELIEF. PT RESTING IN BED AT THIS TIME, CALL LIGHT IN REACH.
[2023-12-14] MEDS ORDERED: LORazepam 2 MG/ML 1ML Injection IV PRN (17:25)
[2023-12-14] MEDS ORDERED: D5W-1/2NS 1,000 ML IV SCH (17:25)
[2023-12-14 20:03] VITALS: BP 158/74
[2023-12-15] VITALS (7 sets, daily range): BP systolic 135–156; BP diastolic 59–119
[2023-12-15 03:52] LABS: BASOPHILS ABSOLUTE AUTO 0.03 K/mm3 (0.00-0.23); BASOPHILS PERCENT AUTO 0 % (0-2); EOSINOPHILS ABSOLUTE AUTO 0.14 K/mm3 (0.00-0.68); EOSINOPHILS PERCENT AUTO 2 % (0-6); Hematocrit 24.2 % (33.0-51.0); Hemoglobin 7.9 g/dL (11.5-16.0); IMMATURE GRAN ABSOLUTE AUTO 0.05 K/mm3 (0.00-0.10); IMMATURE GRAN PERCENT AUTO 1 % (0-1); LYMPHOCYTES ABSOLUTE AUTO 0.99 K/mm3 (0.84-5.20); LYMPHOCYTES PERCENT AUTO 10 % (21-46); MONOCYTES ABSOLUTE AUTO 0.88 K/mm3 (0.16-1.47); MONOCYTES PERCENT AUTO 9 % (4-13); Mean Corpuscular HGB 30.6 pg (26.0-34.0); Mean Corpuscular HGB Conc 32.6 g/dL (31.5-36.5); Mean Corpuscular Volume 94 fL (80-100); Mean Platelet Volume 9.4 fL (9.1-12.4); NEUTROPHILS ABSOLUTE AUTO 7.42 K/mm3 (1.96-9.15); NEUTROPHILS PERCENT AUTO 78 % (41-73); Platelet Count 408 K/mm3 (150-400); RDW Standard Deviation 51.3 fL (35.1-46.3); Red Blood Cell Count 2.58 M/mm3 (3.80-5.20); White Blood Cell Count 9.51 K/mm3 (4.00-11.30)
[2023-12-15 04:07] LABS: Albumin, Blood 2.1 g/dL (3.4-5.0); Anion Gap 9 mmol/L (3-11); Blood Urea Nitrogen 6 mg/dL (8-24); Bun/Creatinine Ratio 10.8 (12.0-20.0); CO2, Blood 27 mmol/L (21-32); Calcium, Blood 7.8 mg/dL (8.5-10.1); Chloride, Blood 107 mmol/L (98-108); Creatinine, Blood 0.56 mg/dL (0.40-1.00); Glomerular Filtration Rate 96 (60-); Glucose, Blood 125 mg/dL (70-99); Phosphorus, Blood 1.3 mg/dL (2.5-4.9); Potassium, Blood 2.9 mmol/L (3.5-5.5); Sodium, Blood 140 mmol/L (136-145)
[2023-12-15] MEDS ORDERED: Potassium Chloride 20 MEQ TabCR PO ONE (05:00)
--- NOTE | 2023-12-15 05:12 | NUR ---
SHIFT SUMMARY PT IS A&O X3, ABLE TO MAKE NEEDS KNOWN. VSS, AFEBRILE, SPO2 >90% ON AIRVO. PT HAS A WEAK COUGH. PUREWICK IN PLACE. SHE REMAINS STRICTLY NPO AND CONTINUES TO EXPRESS THAT SHE DOES NOT WANT TO REPLACE HER DOBHOFF. D5 1/2 NS INFUSING PER EMAR. SHE IS RESTING QUIETLY IN BED, BREATHING IS EVEN AND UNLABORED, CALL LIGHT IN REACH.
--- NOTE | 2023-12-15 05:23 | NUR ---
UPDATE SPOKE WITH RESIDENT REGARDING POTASSIUM OF 2.9. AWAITING ORDERS AT THIS TIME.
[2023-12-15] MEDS ORDERED: Potassium Chl 20MEQ/Water100ML 100 ML IV STA (05:29)
[2023-12-15] MEDS ORDERED: Potassium Chl 20MEQ/Water100ML 100 ML IV SCH (05:45)
[2023-12-15] MEDS ORDERED: LORazepam 2 MG/ML 1ML Injection IV ONE (11:35)
--- NOTE | 2023-12-15 12:36 | NUR ---
UPDATE DR. HARRIS IN TO ROUND ON PATIENT. DISCUSSION WITH PATIENT AND SPOUSE ABOUT DOBHOFF PLACEMENT. PT AGREES TO TRY. PT PREMEDICATED FOR ANXIETY. THIS RN AND CHILDREN'S SERVICE SUPERVISOR ATTEMPTED TO INSERT DOBHOFF MULTIPLE TIMES AND PT WOULD PULL AT TUBE AND SHAKE HER HEAD. PT AGREES TO TAKE A BREAK AND TRY AGAIN THIS AFTERNOON.
[2023-12-15] MEDS ORDERED: Acetaminophen 650 MG Supp PR PRN (14:55)
--- NOTE | 2023-12-15 15:00 | NUR ---
UPDATE TEMP AT 102.8. BLANKETS REMOVED. DR. HARRIS CALLED AND NOTIFIED. NEW ORDERS FOR [place] TYLENOL. RECTAL PROBE IN PLACE AND COOLING BLANKET. PT RESTLESS AND ANXIOUS.
[2023-12-15] MEDS ORDERED: FentaNYL Citrate 50 MCG/ML 2 ML Injection IV PRN (18:00)
--- NOTE | 2023-12-15 18:11 | NUR ---
SHIFT SUMMARY PT REMAINS AWAKE AND ALERT. PT ANSWERING QUESTIONS APPROPRIATELY, BUT FORGETFUL AT TIMES. PT HAS REMAINED ON 4L NC SINCE TITRATED THIS AM. HR REMAINS SR TO SINUS TACH. PT HAS DENIED PAIN ALL SHIFT UNTIL THIS EVENING. DR. HARRIS CALLED FOR IV PAIN MEDICATION. TEMPERATURE CONTINUES TO IMPROVE THIS EVENING. WILL REPORT OFF TO ONCVALENTE DANEILLE
[2023-12-16 05:21] LABS: BASOPHILS ABSOLUTE AUTO 0.05 K/mm3 (0.00-0.23); BASOPHILS PERCENT AUTO 1 % (0-2); EOSINOPHILS ABSOLUTE AUTO 0.26 K/mm3 (0.00-0.68); EOSINOPHILS PERCENT AUTO 3 % (0-6); Hematocrit 29.9 % (33.0-51.0); Hemoglobin 9.7 g/dL (11.5-16.0); IMMATURE GRAN ABSOLUTE AUTO 0.04 K/mm3 (0.00-0.10); IMMATURE GRAN PERCENT AUTO 1 % (0-1); LYMPHOCYTES ABSOLUTE AUTO 1.32 K/mm3 (0.84-5.20); LYMPHOCYTES PERCENT AUTO 15 % (21-46); MONOCYTES ABSOLUTE AUTO 0.87 K/mm3 (0.16-1.47); MONOCYTES PERCENT AUTO 10 % (4-13); Mean Corpuscular HGB 30.8 pg (26.0-34.0); Mean Corpuscular HGB Conc 32.4 g/dL (31.5-36.5); Mean Corpuscular Volume 95 fL (80-100); Mean Platelet Volume 9.7 fL (9.1-12.4); NEUTROPHILS ABSOLUTE AUTO 6.05 K/mm3 (1.96-9.15); NEUTROPHILS PERCENT AUTO 70 % (41-73); Platelet Count 489 K/mm3 (150-400); RDW Coefficient Variation 14.8 % (11.7-14.2); Red Blood Cell Count 3.15 M/mm3 (3.80-5.20); White Blood Cell Count 8.59 K/mm3 (4.00-11.30)
[2023-12-16 05:44] VITALS: BP 144/66
[2023-12-16 05:50] LABS: Albumin, Blood 2.6 g/dL (3.4-5.0); Anion Gap 10 mmol/L (3-11); Blood Urea Nitrogen 6 mg/dL (8-24); Bun/Creatinine Ratio 10.7 (12.0-20.0); CO2, Blood 26 mmol/L (21-32); Calcium, Blood 8.2 mg/dL (8.5-10.1); Chloride, Blood 107 mmol/L (98-108); Creatinine, Blood 0.56 mg/dL (0.40-1.00); Glomerular Filtration Rate 96 (60-); Glucose, Blood 99 mg/dL (70-99); Phosphorus, Blood 1.7 mg/dL (2.5-4.9); Potassium, Blood 3.5 mmol/L (3.5-5.5); Sodium, Blood 139 mmol/L (136-145)
--- NOTE | 2023-12-16 06:07 | NUR ---
EOS: NO ABRUPT CHANGES THROUGH THE NIGHT, RECTAL TYLENOL Q6 HAS BEEN HELPING KEEP TEMP <100. PATIENT O2 HAS IMPROVED TITRATED DOWN TO 2.5L. HEARTRATE WHILE SLEEPING 80-90'S. PATIENT HAS BEEN IMPROVING THROUGH THE NIGHT, PICC IS STILL POSITIONAL ALL CAPS CHANGED AND FLUSHED, GREEN CAPS IN PLACE, STILL RECIEVING D5 .45NS STILL INFUSING. ORAL CARE Q4. VSS. PLAN OF CARE CONTINUES.
[2023-12-16] MEDS ORDERED: Potassium Phosphate Dibasic 30 MM in Dextrose 5% 500 ML IV STA (08:29)
[2023-12-16 08:50] VITALS: BP 143/63
[2023-12-16 15:03] VITALS: BP 169/69
[2023-12-16 16:00] VITALS: BP 143/68
--- NOTE | 2023-12-16 16:27 | NUR ---
GOALS OF CARE: PER CONVERSATION WITH PROVIDER, GOAL WAS TO RE-ATTEMPT PLACEMENT OF A DOBHOFF. THIS PC RN SPOKE WITH PT INDEPENDENTLY AND AGAIN WITH SO, JULIA PRESENT RE: GOC. "BRYNN" IS BECOMES VISABLY ANXIOUS, PULLING AT COVERS, UNABLE TO HOLD STILL, ATTEMPTING TO CROSS HER LEGS (S/P HIP FX REPAIR) DESPITE PAIN. WHEN ASKED WHAT THE MATTER IS, SHE STARTED CRYING, "I DON'T WANT THAT TUBE. IT HURTS." AFTER 2-3 MINUTES OF GENTLE REASURRANCE, THE TUBE WOULD NOT BE PLACED WITHOUT HER PERMISSION, AND REDIRECTION, BRYNN WAS ABLE TO CONTINUE GOC CONVERSATION. SO, JULIA REQUESTS TO REVISIT GOC AFTER SPEECH TX EVAL THIS AFTERNOON. PC TO REMAIN AVAILABLE NEEDED.
--- NOTE | 2023-12-16 18:29 | NUR ---
SHIFT SUMMARY: PT A&OX4 BUT FORGETFULL AT TIMES. FOLLOWS INSTRUCTIONS AND MAKES NEEDS KNOWN TO STAFF. PT REMAINED ON 2 NC THROUGHOUT SHIFT. REMAINS ON PUREWICK WITH AN ADEQUATE AMOUNT OF URINE OUTPUT. PT DID NOT GET OUT OF BED TODAY DUE TO WEAKNESS. PALLIATIVE CARE CAME AND TALKED TO PT AND AND DECIDED THAT PT DOES NOT WANT AN NG TUBE, DOBBHOFF OR A FEEDING TUBE. PT FAILED A SWALLOW EVAL AGAIN TODAY AND REMAINS NPO EXCEPT FOR A SMALL DRINK OF WATER AFTER ORAL CARE, PER SPEECH. PTS POWER PICC WAS DC'D DUE TO IT NOT BEING PATENT ANYMORE. NO ACUTE NEURO CHANGES. NO OTHER EVENTS HAPPENED DURING THIS SHIFT. WILL CONTINUES TO CARE FOR PT TILL END OF SHIFT
[2023-12-16 19:15] VITALS: BP 157/75
[2023-12-16 19:38] VITALS: BP 168/72
[2023-12-17 00:31] VITALS: BP 126/63
[2023-12-17 02:39] VITALS: BP 106/79
[2023-12-17 04:55] LABS: Albumin, Blood 2.1 g/dL (3.4-5.0); Anion Gap 8 mmol/L (3-11); Blood Urea Nitrogen 6 mg/dL (8-24); Bun/Creatinine Ratio 9.3 (12.0-20.0); CO2, Blood 24 mmol/L (21-32); Calcium, Blood 7.6 mg/dL (8.5-10.1); Chloride, Blood 108 mmol/L (98-108); Creatinine, Blood 0.65 mg/dL (0.40-1.00); Glomerular Filtration Rate 92 (60-); Glucose, Blood 98 mg/dL (70-99); Phosphorus, Blood 2.3 mg/dL (2.5-4.9); Potassium, Blood 3.4 mmol/L (3.5-5.5); Sodium, Blood 137 mmol/L (136-145)
--- NOTE | 2023-12-17 06:02 | NUR ---
EOS: PATIENT IS ALERT AND ORIENTED X 4, STILL HAVING SHORT TERM MEMORY LOSS, IS VERY ANXIOUS, SPOKE IN DEPTH ABOUT PLAN OF CARE EDCUATED PATIENT ON NEED FOR NUTRITION. PATIENT FEVER HAS IMPROVED, HAD TO GIVE TYLENOL MA Q6 ALMOST SCHEDULED SITLL INFUSING D5.45NS. Q6 CBG, HAVE BEEN Q2 REPOSITIONS, OVERALL IMPROVING, HAS BEEN MOSTLY SR TO ST, SPO2 >94%. DENIES CHEST PAIN PRESSURE OR SOB AT REST. US IV PLACED. VSS. NO ACUTE CONCERNS FROM THIS RN AT THIS TIME. PATIENT CONCERN FOR DISCHARGE CRITERIA.
[2023-12-17 08:12] VITALS: BP 136/65
--- NOTE | 2023-12-17 10:55 | NUR ---
PT TAKEN VIA WHEELCHAIR TO GET A BARIUM SWALLOW DONE.
--- NOTE | 2023-12-17 11:19 | NUR ---
BRYNN IS A/O X4. PLEASANT AND CONVERSATIONAL THIS MORNING. SHE WAS AGREEABLE TO REPEATING A SWALLOW STUDY WITH SPEECH TX TO EVAL FOR POSSIBLE IMPROVEMENT. RCV'D REPORT FROM SPEECH TX, ROQUE. BRYNN'S SWALLOW HAS IMPROVED AND CAN START A MINCED AND MOIST DIET, NECTAR THICK LIQUIDS, MEDS WHOLE IN APPLESAUCE, ONE PILL AT A TIME. THIS PC RN UPDATED PRIMARY RN RESIDENT WITH RECOMMENDATION PER SPEECH TX REQUEST. PC TO REMAIN AVAILABLE NEEDED.
[2023-12-17 15:59] VITALS: BP 130/77
--- NOTE | 2023-12-17 17:20 | NUR ---
END OF SHIFT SUMMARY: IS MEDICAL STATUS WITHOUT TELE. PT A&0X4 AND COOPERATIVE WITH HER CARE. SATTING >92% ON 2 LITERS VIA NASAL CANNULA. HAS A RECENT LEFT HIP FX THAT WAS REPAIRED WITH SURGERY AND IS SORE. HAD A BARIUM SWALLOW EVALUATION DONE TODAY AND IS NOW A MINCED AND MOIST DIET, MEDS WITH APPLESAUCE ONE AT A TIME AND TO BE SITTING UPRIGHT 30-60MINUTES AFTER EATING, NO STRAW. IS A 1 PERSON WITH FRONT WHEELED WALKER AND WORKED WITH PT TODAY AND SAT IN CHAIR. HAS A PUREWICK PLACED CONNECTED TO SUCTION AND DRAINING PROPERLY. WILL REPORT TO ONCOMING DIFFERENTIAL TESTER RN.
[2023-12-17 20:27] VITALS: BP 145/68
--- NOTE | 2023-12-17 20:33 | NUR ---
ASSUMED CARE PT A&O X4; SPO2 >92% ON 2LNC; MAP >65; RATE 90-100'S. PT PLEASANT AND COOPERATIVE, ANXIOUS AT TIMES. TOLERATING PO MEDS ONE AT A TIME W/ APPLESAUCE. LEFT THIGH HAS BRUISING, DRESSING C/D/I, PAIN MANAGED PER EMAR. PT RESTING QUIETLY AT THIS TIME.
[2023-12-17] MEDS ORDERED: Acetaminophen 325 MG TABLET PO PRN (23:40)
--- NOTE | 2023-12-18 01:20 | NUR ---
TRANSFER REPORT GIVEN TO RUBY AND PT TO MOVE TO ROOM 211 W/ [facility].
--- NOTE | 2023-12-18 01:30 | NUR ---
ARRIVAL TO SURGICAL UNIT ROOM 211. PT ARRIVED VIA HOSPITAL BED FROM PCU ROOM 11. PT A/O X4, REPORTS PAIN TOLERABLE, DENIES SOB OR CHEST PAIN. AQUACEL ON LEFT HIP C/D/I. PT ON 2 LITERS VIA N/C AND PUREWICK IN PLACE. ORIENTED TO CALL LIGHT AND ROOM. BED IN LOWEST POSITION.
[2023-12-18 01:43] VITALS: BP 95/55
[2023-12-18 04:02] VITALS: BP 115/59
--- NOTE | 2023-12-18 06:26 | NUR ---
SHIFT SUMMARY NOC. PT S/P LEFT HIP SURGERY. PT TRANSFERED FROM PCU THIS SHIFT. PT ON 2L VIA N/C, CONT BIOX IN PLACE. PT AFEBRILE SINCE TRANSFER, PULSE IN 90-100S. PT MEDICATED FOR PAIN X1 WITH REPORTED RELIEF. AQUACEL X2 C/D/I. PT IMPULSIVE WITH GETTING UP AND FORGETS LIMITATIONS, BED ALARM SET FOR SAFETY. CALL LIGHT IN REACH.
[2023-12-18 07:24] VITALS: BP 115/64
[2023-12-18 07:43] VITALS: BP 82/63
--- NOTE | 2023-12-18 08:17 | NUR ---
NURSING SURG DAYSHIFT: Assumed care of pt at approx 0700. Alert, forgetful at times, cooperative w/care and appears in good spirits. Skin dry/fragile, L hip insicion w/dressing in place, no breakdown noted. Denies any pain at rest. Repositions w/assist. No tele in place, HRR, 110-120, no noted edema, BP stable. L/S w/ant b/l upper lobe crackles, posterior upper lobe exp wheezes, dim mid/lower lobes, occ harsh, dry/SAIL[employer]ER cough, denies dyspnea, O2 sat upper 90's on RA. Abd mildly distended, non-tender, BT hypotensive, incontinent of urine at times, PW in place. PIV x1, s/l. No s/s of acute distress at this time. Pt resting comfortably in bed, sitting up watching TV. Denies any current questions/needs, agreeable to working w/therapy today. Call light in reach, bed alarm set for safety purposes, awaiting rounding from physicians. Cont to monitor for changes.
[2023-12-18] MEDS ORDERED: ALPRAZolam 0.25 MG Tab PO PRN (12:40)
[2023-12-18 14:52] VITALS: BP 95/61
[2023-12-18 19:34] VITALS: BP 101/68
[2023-12-18] MEDS ORDERED: Venlafaxine HCl 25 MG Tab PO SCH (21:00)
[2023-12-18] MEDS ORDERED: BusPIRone HCl 5 MG Tab PO SCH (21:00)
[2023-12-18] MEDS ORDERED: QUEtiapine Fumarate 100 MG Tab PO SCH (21:00)
[2023-12-19 03:00] VITALS: BP 97/65
--- NOTE | 2023-12-19 05:51 | NUR ---
SHIFT SUMMARY NOC. PT S/P LEFT HIP SURGERY. PT AQUACEL C/D/I. PT ON 2L VIA N/C, CONT BIOX IN PLACE. PULSE IN 100S THIS SHIFT, DENIES SOB OR CP. PT SOMNOLENT DURING MED PASS, PER DYSPHAGIA PRECAUTIONS, PT NOT TO SWALLOW WHILE SLEEPY. DISCUSSED HOLDING MEDS WITH POWER LINE INSTALLERSHASHI Todd PT VOIDING URINE AND STAND PIVOT TRANSFERS TO BSC. PT MEDICATED FOR PAIN AND ANXIETY EARLY THIS AM. BED ALARM SET FOR SAFETY. CALL LIGHT IN REACH.
[2023-12-19] MEDS ORDERED: Levothyroxine Sodium 0.075 MG Tab PO SCH (06:00)
--- NOTE | 2023-12-19 07:45 | NUR ---
AM ASSESSMENT: Pt up to BSC with One person assist to void. Pt attempted to get up without assistance and was reminded to call for help prior to moving. Pt agreed to do this, bed alarm was placed after patient back to bed. LS diminished with some scattered wheezing. Pt on 2L per n/c, biox mid to uppper 90's. HR tachy. BT positive. Pt passing flatus. Pulses palp. Swelling and bruising scattered on L leg. L hip with dressing clean and intact. States pain in her L leg 09/27. Will medicate per orders. Pt back to bed with one asssit, bed alarm on and call light in reach. Will continue to monitor.
[2023-12-19 07:48] VITALS: BP 115/92
[2023-12-19] MEDS ORDERED: Thiamine HCl 100 MG Tab PO SCH (09:00)
[2023-12-19] MEDS ORDERED: Metoprolol Tartrate 25 MG Tab PO SCH (09:00)
[2023-12-19 09:44] LABS: BASOPHILS ABSOLUTE AUTO 0.07 K/mm3 (0.00-0.23); BASOPHILS PERCENT AUTO 1 % (0-2); EOSINOPHILS PERCENT AUTO 7 % (0-6); Hematocrit 27.5 % (33.0-51.0); Hemoglobin 8.7 g/dL (11.5-16.0); IMMATURE GRAN ABSOLUTE AUTO 0.02 K/mm3 (0.00-0.10); IMMATURE GRAN PERCENT AUTO 0 % (0-1); LYMPHOCYTES ABSOLUTE AUTO 1.41 K/mm3 (0.84-5.20); LYMPHOCYTES PERCENT AUTO 25 % (21-46); MONOCYTES ABSOLUTE AUTO 0.79 K/mm3 (0.16-1.47); MONOCYTES PERCENT AUTO 14 % (4-13); Mean Corpuscular HGB 30.4 pg (26.0-34.0); Mean Corpuscular HGB Conc 31.6 g/dL (31.5-36.5); Mean Corpuscular Volume 96 fL (80-100); Mean Platelet Volume 9.8 fL (9.1-12.4); NEUTROPHILS ABSOLUTE AUTO 2.91 K/mm3 (1.96-9.15); NEUTROPHILS PERCENT AUTO 52 % (41-73); Platelet Count 652 K/mm3 (150-400); RDW Coefficient Variation 15.1 % (11.7-14.2); Red Blood Cell Count 2.86 M/mm3 (3.80-5.20)
--- NOTE | 2023-12-19 11:15 | NUR ---
Spiritual Care Visit. Pt. is awake in bed and welcomes my visit. Pt. is pleasant, and verbalizes an expectation that she will be discharged soon to [facility] where she can recieve more physical therapy. Pt. displays evidence of a thankful spirit. Pt. requested give some contact info to the [facility] volunteers. Prayed for the Pt. Pt. verbalized gratitude for the spiritual care visit. This sorority mother delivered the Pts. contact info to the [facility] volunteer office.
[2023-12-19] MEDS ORDERED: Ipratropium/Albuterol SulF 2.5-0.5MG/3 ML Amp INH SCH (13:00)
[2023-12-19] MEDS ORDERED: Albuterol 2.5 MG/3 ML VIAL INH PRN (13:00)
--- NOTE | 2023-12-19 14:19 | NUR ---
ASSUMED CARE OF PT FROM COLLEEN Lemus RN. PT RESTING IN BED, DENIES ANY NEEDS AT THIS TIME. CALL LIGHT IN REACH.
[2023-12-19 15:32] VITALS: BP 113/56
--- NOTE | 2023-12-19 17:12 | NUR ---
SUMMARY NO ACUTE CHANGES SINCE ASSUMING CARE OF PT THIS AFTERNOON. PT REC'D DIFLUCAN IV PER ORDERS. PT STOOD AND TRANSFERRED TO BSC USING FWW AND VOIDED 200ML. NOW BACK TO BED W/BED ALARM ON FOR SAFETY AND CALL LIGHT IN REACH.
[2023-12-19 19:13] VITALS: BP 121/65
[2023-12-20] VITALS (16 sets, daily range): BP systolic 68–152; BP diastolic 54–97
--- NOTE | 2023-12-20 04:16 | NUR ---
SHIFT SUMMARY NO ACUTE CHANGES OVERNIGHT. A&OX4. 1L NC OVERNIGHT, TOLERATED WELL, SPO2 MAINTAINED MID 90S. ACCIDENTAL SELF DC OF NC WOULD RESULT IN DESAT TO 85% SPO2 ON RA. NC REAPPLIED IN TIMELY MANNER TO 1L NC, RESOLVING DESAT. CONTINUOUS PULSE OXIMETRY OVERNIGHT. UP TO BSC USING GAIT BELT AND FWW WITH 1PA. VOIDING, PASSING GAS. TOLERATING PO INTAKE WELL, NECTAR THICK LIQUIDS. PT VOICED UNDERSTANDING OF PLAN OF CARE INCLUDING DISCHARGE PLANS, DENIES QUESTIONS/CONCERNS AT THIS TIME. ABLE TO VERBALIZE NEEDS, CALL LIGHT IN REACH.
[2023-12-20 05:44] LABS: Bun/Creatinine Ratio 9.6 (12.0-20.0); Calcium, Blood 8.7 mg/dL (8.5-10.1); Creatinine, Blood 0.83 mg/dL (0.40-1.00); Potassium, Blood 3.7 mmol/L (3.5-5.5)
[2023-12-20 10:17] LABS: SARS-Cov-2 (COVID-19) PCR, MMC NEGATIVE (NEGATIVE)
[2023-12-20] MEDS ORDERED: Potassium Chl 20MEQ/Water100ML 100 ML IV STA (11:25)
[2023-12-20] MEDS ORDERED: Lactated Ringer's 1,000 ML IV SCH (12:05)
[2023-12-20 12:36] LABS: BASOPHILS ABSOLUTE AUTO 0.04 K/mm3 (0.00-0.23); BASOPHILS PERCENT AUTO 1 % (0-2); EOSINOPHILS ABSOLUTE AUTO 0.25 K/mm3 (0.00-0.68); EOSINOPHILS PERCENT AUTO 5 % (0-6); Hematocrit 26.8 % (33.0-51.0); Hemoglobin 8.5 g/dL (11.5-16.0); IMMATURE GRAN ABSOLUTE AUTO 0.02 K/mm3 (0.00-0.10); IMMATURE GRAN PERCENT AUTO 0 % (0-1); LYMPHOCYTES ABSOLUTE AUTO 1.38 K/mm3 (0.84-5.20); LYMPHOCYTES PERCENT AUTO 29 % (21-46); MONOCYTES ABSOLUTE AUTO 0.74 K/mm3 (0.16-1.47); MONOCYTES PERCENT AUTO 16 % (4-13); Mean Corpuscular HGB 30.6 pg (26.0-34.0); Mean Corpuscular HGB Conc 31.7 g/dL (31.5-36.5); Mean Corpuscular Volume 96 fL (80-100); Mean Platelet Volume 9.5 fL (9.1-12.4); NEUTROPHILS ABSOLUTE AUTO 2.31 K/mm3 (1.96-9.15); NEUTROPHILS PERCENT AUTO 49 % (41-73); Platelet Count 609 K/mm3 (150-400); RDW Coefficient Variation 14.8 % (11.7-14.2); RDW Standard Deviation 51.5 fL (35.1-46.3); Red Blood Cell Count 2.78 M/mm3 (3.80-5.20); White Blood Cell Count 4.74 K/mm3 (4.00-11.30)
[2023-12-20 12:51] LABS: Anti-Xa UFH, PHA Monitoring 0.37 IU/mL; International Normalized Ratio 1.17; Prothrombin Time Results 12.4 Sec (9.7-11.5)
[2023-12-20] MEDS ORDERED: Heparin Sodium,Porcine/0.5 NS 500 ML IV SCH (13:20)
--- NOTE | 2023-12-20 13:54 | NUR ---
ASSUMPTION OF CARE RECEIVED REPORT FROM SURGICAL FLOOR RN RADHA. PT ARRIVED TO PCU IN BED. PT ALERT AND ORIENTED. HR IN THE 150'S-180'S, SBP SOFT IN THE 80'S-90'S, FLUIDS STARTED. O2 >92% ON 2L VIA NC, PT WITH EPISODE OF SOB, RESLVED WITH DEEP BREATHING AND REPOSITIONING. PROVIDER TO BEDSIDE TO DISCUSS PLAN OF CARE WITH PT. PT STARTED ON FLUIDS, AMIODARONE GTT, HEPARIN GTT, RUNNING PER ORDERS. RFA PIV, LFA PIV, PARUL PG. CARDIOLOGY CONSULT IN PLACE. PT DENIES QUESTIONS OR CONCERNS AT THIS TIME. WILL CONTINUE TO MONITOR.
--- NOTE | 2023-12-20 14:27 | NUR ---
TACHYCARDIA: THIS RN CALLED INTO ROOM AT ABOUT 1020, PT'S CONTINIOUS BIOX WAS ALARMING. HR READ 150-180'S. PT DENIED CP. VS TAKEN, SEE RESULTS. BP WAS 85/58. UPON ASCULTATION, HEART SOUNDS WERE FAST AND IRREGULAR. ANALYTICS MANAGER HANNAH AND DR. CABEZAS NOTIFIED OF THE ABOVE CHANGES. ORDERS TO ADMINISTER PO LOPRESSOR 25MG PO AND REASSESS IN 30 MINUTES. THIS RN IN PT ROOM AT 1030 TO GIVE PO LOPRESSOR. PT CALL LIGHT IN REACH AND PT INSTRUCTED TO CALL IF FEELS SOB OR CP. AT 1114 THIS RN CALLED INTO ROOM. PT NOW COMPLAINS OF CHEST PAIN, DESCRIBED PRESSURE. VS TAKEN, SEE RESULTS. HR STILL TRENDING 120-170'S AND BP 68/54. HEART SOUNDS CONTINUE TO SOUND IRREGULAR. DR. CABEZAS NOTIFIED OF CP AT 1120 . ORDERS FOR EKG AND TRANSFER TO PCU AND TO START AMIODARONE DRIP. EKG COMPLETE AT ABOUT 1130 PLACED IN CHART, PCU ANALYTICS MANAGER GABE IN ROOM AT ABOUT 1140 AND TELE APPLIED/VERIFIED. PT TRANSFERED TO [facility] AT ABOUT 1155, BEDSIDE REPORT GIVEN TO ALEXANDRA AND DR. CABEZAS IN ROOM.
[2023-12-20] MEDS ORDERED: Digoxin 0.25 MG Tab PO SCH (16:00)
--- NOTE | 2023-12-20 18:16 | NUR ---
SHIFT SUMMARY PT ALERT AND ORIENTED, COOPERATIVE TO CARE. AFLUTTER, HR IN THE 110'S, SBP SOFT ON ADMISSION, INCREASE TO 100'S WITH FLUID, DENIES NUMB/TINGLING, INTERMITTENT CHEST PRESSURE, MEDICATED PER EMAR. O2 >92% ON 2L VIA NC, PT GETS ANXIOUS AT TIMES AND BECOMES SOB, RELIEVED WITH DEEP BREATHS. CARDIOLOGY TO BEDSIDE TO DISCUSS PLAN OF CARE WITH PT, PT ON AMIODARONE GTT AND HEPARIN GTT PER ORDERS, ALONG WITH PO DIGOXIN ORDERED. CARDIOLOGY TO REEVALUATE TOMORROW AND IF NO IMPROVMENT POSSIBLE CARDIOVERSION. WILL CONTINUE TO MONITOR PT AND REPORT TO WASTEWATER PROCESS ENGINEER RN.
--- NOTE | 2023-12-20 18:34 | NUR ---
SPiritual Care Visit. Pt. is now in PCU. Pt. is awake and welcomed my visit. This eyelet riveter had presumed that she had been transferred to [facility]. Pt. verbalized the tale of her having chest Pain in the early AM before she was finally transferred to the PCU. Normalized the Pt. experience, and assured her of close monitoring that would take place now that she is in the PCU. Pt. verbalized her encouragement. Prayed prayers of thankfulness and gratitude for the Pt. Pt. verbalized gratitude that this eyelet riveter visited.
[2023-12-20] MEDS ORDERED: Ondansetron HCl 2 MG / ML 2ML Vial IV PRN (19:45)
[2023-12-20] MEDS ORDERED: Dose Adjust by Pharmacy XX STA (20:40)
--- NOTE | 2023-12-20 21:55 | NUR ---
DISCUSSION WITH DR. CAPUTO AND PT AT BEDSIDE. DR. CAPUTO NOTED THAT PT CONVERTED EARLIER THIS EVENING, REQUESTED TO TURN OFF HEPARIN AND AMIODARONE DRIPS TO SEE HOW PT DOES OVERNIGHT. DRIPS TURNED OFF. DR. CAPUTO ADVISED HE WOULD MODIFY ORDERS. CONTINUING TO MONITOR.
--- NOTE | 2023-12-20 22:20 | NUR ---
late assumption of care note. pt aox4, pleasant, cooperative with care, calls appropriately for assistance. no pain reported this shift thus far. purewick put in place early in shift per pt request d/t current bedrest as well as frequent voiding. early in shift pt converted to sinus. held [address] sexton at bedside who ordered to stop heparin and amiodarone drips. drips no longer running. pt has maintained adequate saturation on 2 l o2 via nc. vitals stable. pt resting comfortably at this time. call light left within reach. continuing to monitor.
--- NOTE | 2023-12-20 23:59 | NUR ---
0000 NOTE. PT CONTINUES TO DENY PAIN. REPORTS HAVING GOTTEN SOME SLEEP SO FAR AND IS PLANNING ON GOING BACK TO SLEEP HERE SOON. VITALS REMAIN STABLE. CONTINUES TO RUN SINUS ON TELE. PT IS OPTIMISTIC THAT HER HEART RATE WILL REMAIN STABLE AND SHE WILL BE ABLE TO DISCHARGE HOME ON DAY SHIFT. BED LOCKED IN LOWEST POSITION. CALL LIGHT LEFT WITHIN REACH. CONTINUING TO MONITOR.
[2023-12-21 03:38] VITALS: BP 146/58
[2023-12-21 04:25] LABS: Hematocrit 26.2 % (33.0-51.0); Hemoglobin 8.4 g/dL (11.5-16.0); Platelet Count 529 K/mm3 (150-400)
--- NOTE | 2023-12-21 04:31 | NUR ---
SHIFT SUMMARY. SHIFT HAS GONE WELL, NO ACUTE CHANGES. REMAINS AOX4, PLEASANT, COOPERATIVE WITH CARE. HAS BEEN ABLE TO REST COMFORTABLY THROUGHOUT MOST OF SHIFT. AMIODARONE AND HEPARIN HAVE BEEN OFF THROUGHOUT MOST OF SHIFT PT CONTINUES TO RUN SINUS ON TELE. RATE IN THE 80s-90s AT THIS TIME. PUREWICK IN PLACE THROUGHOUT SHIFT. URINE OUTPUT CONSISTENT. PT CONTINUES TO DENY PAIN AND REPORTS BEING COMFORTABLE, REFUSES REPOSITIONING. BED LOCKED IN LOWEST POSITION. CALL LIGHT LEFT WITHIN REACH. CONTINUING TO MONITOR.
[2023-12-21 08:07] VITALS: BP 132/75
--- NOTE | 2023-12-21 10:19 | NUR ---
ASSUMPTION OF CARE PT ALERT AND ORIENTED, COOPERATIVE TO CARE. LEFT HIP WITH AQUCEL IN PLACE, BRUSING AND AND MINOR SWELLING. SINUS RHYTHM, HR IN THE 90'S, DENIES CP/PRESSURE, NUMB/TINGLING, SBP STABLE, 02 >94% ON 2L VIA NC, DENIES SOB AT THIS TIME. +BS, DENIES PAIN/TENDERNESS AT THIS TIME. PUREWICK IN PLACE. PTS RATE AND RHYTHM HAVE BEEN CONTROLLED T/O SHIFT. PROVIDER TO BEDSIDE TO DISCUSS PLAN OF CARE. PT TO D/C TO [facility].
[2023-12-21 11:44] VITALS: BP 141/65
[2023-12-21 15:50] VITALS: BP 155/59
[2023-12-21] MEDS ORDERED: Acetaminophen325 M1 PO (15:51)
[2023-12-21] MEDS ORDERED: VENL25 PO (15:51)
[2023-12-21] MEDS ORDERED: FOLI1 PO (15:53)
[2023-12-21] MEDS ORDERED: BISA10S PR (15:53)
[2023-12-21] MEDS ORDERED: IPRAT-ALBUT 0.5-3 ML INH (15:53)
[2023-12-21] MEDS ORDERED: METO25 PO (15:54)
[2023-12-21] MEDS ORDERED: OXYC5 PO (15:56)
[2023-12-21] MEDS ORDERED: MIRALAX17 GM PO (15:56)
[2023-12-21] MEDS ORDERED: ENOX40I SC (15:57)
--- NOTE | 2023-12-21 17:13 | NUR ---
SHIFT SUMMARY PT A&O X4, ANXIOUS. MEDICATED PER EMAR, COOPERATIVE TO CARE. NSR, 90'S, DENIES CP/PRESSURE, NUMB/TINGLING. O2 >92% ON RA, DENIES SOB AND DOING WELL ON RA. VSS. PT UP TO CHAIR TODAY FOR A FEW HOURS. LEFT HIP SURGERY SITE WITH AQUACEL IN PLACE. SITE CLEANSED AND 12 TREVA REMOVED THIS AFTERNOON. NEW AQUACEL DRESSING PLACED, C/D/I, NO EXUDATE NOTED. ORIGINAL PLAN WAS FOR D/C TODAY, DUE TO ACCEPTING FACILTY PLAN CHANGED FOR D/C TOMORROW. PT EXRESSED FRUSTRATION WITH NOT LEAVING TODAY AND BECAME VERY ANXIOUS, MEDICATED PER EMAR AND SHE REPORTED FEELING BETTER. NO ACUTE CHANGES T/O SHIFT, WILL CONTINUE TO MONITOR AND REPORT TO FAST FOOD SALES ASSISTANT RN.
[2023-12-21 20:33] VITALS: BP 112/88
--- NOTE | 2023-12-21 21:51 | NUR ---
LATE ASSUMPTION OF CARE NOTE. PT AOX4, PLEASANT, COOPERATIVE WITH CARE, CALLS APPROPRIATELY, ABLE TO MAKE NEEDS KNOWN. HAS DENIED PAIN THUS FAR THIS SHIFT. VITALS HAVE REMAINED STABLE. PT IS STEADY 1PA TRANSFER WITH FWW TO COMMODE. CONTINENT THUS FAR. 2100 MEDICATIONS ADMINISTERED WITHOUT DIFFICULTY WITH APPLESAUCE. PT CAN BE SOMEWHAT ANXIOUS AT TIMES BUT IS PLEASANT AND HAS THUS FAR REFUSED PRN XANAX. BED LOCKED IN LOWEST POSITION. CALL LIGHT LEFT WITHIN REACH. CONTINUING TO MONITOR.
[2023-12-21 22:59] VITALS: BP 148/91
[2023-12-22 00:42] VITALS: BP 142/69
--- NOTE | 2023-12-22 00:48 | NUR ---
0000 NOTE. PT RELAXED IN BED. VITALS STABLE. DENIES NEEDS OF ANY KIND. BED LOCKED IN LOWEST POSITION. CALL LIGHT LEFT WITHIN REACH. CONTINUING TO MONITOR.
[2023-12-22 04:03] VITALS: BP 153/66
--- NOTE | 2023-12-22 04:24 | NUR ---
SHIFT SUMMARY. SHIFT HAS BEEN UNREMARKABLE. PT REMAINS AOX4, PLEASANT, COOPERATIVE WITH CARE, CALLS APPROPRIATELY, ABLE TO MAKE NEEDS KNOWN. HAS BEEN ABLE TO REST COMFORTABLY THROUGHOUT MOST OF SHIFT. REPORTED SOME PAIN THIS MORNING THAT HAS BEEN MANAGED VIA EMAR. VITALS HAVE BEEN STABLE. HAS BEEN ON ROOM AIR THROUGHOUT SHIFT WITH O2 MAINTAINING >88%. 1[place] [facility] [place]AT[place] FOR [place]. BED LOCKED IN LOWEST POSITION. CALL LIGHT LEFT WITHIN REACH. CONTINUING TO MONITOR.
[2023-12-22 07:28] VITALS: BP 150/73
--- NOTE | 2023-12-22 09:33 | NUR ---
THE PT IS PLANNED TO D/C TO [facility] THIS MORNING AT 1000. VS STABLE. RAPID COVID-19 SWAB NEGATIVE. ON TELE SHE HAS BEEN SR, BP STABLE. SHE IS ON RA W/ SP02 >90%. NO ACUTE EVENTS THIS MORNING. HER IV'S AND POWERGLIDE WERE D/C'D FOR DISCHARGE. SEE NOTES FOR UPDATES.
--- NOTE | 2023-12-22 09:44 | NUR ---
REPORT GIVEN TO PATRIC BENNETT AT [facility].
--- NOTE | 2023-12-22 10:14 | NUR ---
pt picked up via transport for d/c to [facility]. belongings sent with the pt.
== END 2023-12-22 10:22 | disposition home or self-care (01) | DRG 480 ==
LOC: ER 06:36 → PCU 09:08 → ICUE 09:08 → SURS 09:08 → ICUE 12-06 05:45 → PCU 12-13 17:34 → SURS 12-18 01:27 → PCU 12-20 11:55
PROVIDERS: Emergency Medicine; Internal Medicine; Internal Medicine Critical Care Medicine; Orthopaedic Surgery; Student in an Organized Health Care Education/Training Program; ADMIT Family Medicine
PROC: 0QS706Z Reposition Left Upper Femur with Intramedullary Internal Fixation Device, Open Approach (ICD-10-PCS; principal; 2023-12-02 13:00)
PROC: 30233N1 Transfusion of Nonautologous Red Blood Cells into Peripheral Vein, Percutaneous Approach (ICD-10-PCS; 2023-12-04)
PROC: 5A1955Z Respiratory Ventilation, Greater than 96 Consecutive Hours (ICD-10-PCS; 2023-12-06)
PROC: 0BH17EZ Insertion of Endotracheal Airway into Trachea, Via Natural or Artificial Opening (ICD-10-PCS; 2023-12-06)
PROC: 3E03329 Introduction of Other Anti-infective into Peripheral Vein, Percutaneous Approach (ICD-10-PCS; 2023-12-06)
PROC: 02HV33Z Insertion of Infusion Device into Superior Vena Cava, Percutaneous Approach (ICD-10-PCS; 2023-12-06)
PROC: 3E033XZ Introduction of Vasopressor into Peripheral Vein, Percutaneous Approach (ICD-10-PCS; 2023-12-06)
DX: S72.142A Displaced intertrochanteric fracture of left femur, initial encounter for closed fracture (principal); A41.9 Sepsis, unspecified organism; E43 Unspecified severe protein-calorie malnutrition; J69.0 Pneumonitis due to inhalation of food and vomit; J96.01 Acute respiratory failure with hypoxia; R65.21 Severe sepsis with septic shock; R57.1 Hypovolemic shock; G93.41 Metabolic encephalopathy; D62 Acute posthemorrhagic anemia; N17.9 Acute kidney failure, unspecified; K56.609 Unspecified intestinal obstruction, unspecified as to partial versus complete obstruction; Z68.1 Body mass index [BMI] 19.9 or less, adult; F10.239 Alcohol dependence with withdrawal, unspecified; M84.454A Pathological fracture, pelvis, initial encounter for fracture; E87.6 Hypokalemia; F31.9 Bipolar disorder, unspecified; M81.0 Age-related osteoporosis without current pathological fracture; J44.9 Chronic obstructive pulmonary disease, unspecified; E03.9 Hypothyroidism, unspecified; F17.210 Nicotine dependence, cigarettes, uncomplicated; D64.9 Anemia, unspecified; E83.39 Other disorders of phosphorus metabolism; K21.9 Gastro-esophageal reflux disease without esophagitis; E78.5 Hyperlipidemia, unspecified; W18.30XA Fall on same level, unspecified, initial encounter; R33.9 Retention of urine, unspecified; K70.30 Alcoholic cirrhosis of liver without ascites; E83.42 Hypomagnesemia; E16.2 Hypoglycemia, unspecified; R13.12 Dysphagia, oropharyngeal phase; Z86.73 Personal history of transient ischemic attack (TIA), and cerebral infarction without residual deficits; Z90.49 Acquired absence of other specified parts of digestive tract; Z88.5 Allergy status to narcotic agent; Z88.8 Allergy status to other drugs, medicaments and biological substances; Z88.1 Allergy status to other antibiotic agents; Z88.0 Allergy status to penicillin; Z79.899 Other long term (current) drug therapy; Z79.890 Hormone replacement therapy; Z87.19 Personal history of other diseases of the digestive system
CPT/HCPCS: 31500; 36415; 36430; 36569; 70450; 71045; 71046; 72192; 73552; 74176; 74177; 74230; 80048; 80053; 80069; 80076; 80202; 80320; 81001; 82803; 82947; 83735; 83880; 84100; 84443; 84484; 85014; 85018; 85025; 85027; 85049; 85520; 85610; 85730; 86850; 86900; 86901; 86923; 87040; 87070; 87077; 87086; 87186; 87205; 92526; 92610; 92611; 93005; 93010; 93306; 94002; 94003; 94640; 94664; 94760; 94762; 96374; 97110; 97110-CQ; 97162; 97164; 97530; 97530-CQ; 99285-25; A9270; C1713; C1751; J0171; J0282; J0690; J0692; J0696; J1100; J1170; J1450; J1630; J1644; J1650; J1885; J2060; J2250; J2405; J2470; J2704; J2997; J3010; J3370; J3411; J3475; J3480; J7030; J7040; J7042; J7050; J7060; J7120; P9016; P9047; Q9967; U0002

== ENCOUNTER 2024-02-14 11:26 | Emergency (ER) | payer OTHER ==
[~2024-02-14] VITALS: Ht 167.6 cm; Wt 45.4 kg
[~2024-02-14 11:26] MED LIST changes: +Acetaminophen325 M1 PO; +BISA10S PR; +BUSPIRONE HCL5 M6 PO; +EFFEXOR XR37.5 MG PO; +ENOX40I SC; +FAMO40 PO; +FOLI1 PO; +IPRAT-ALBUT 0.5-3 ML INH; +LAMOTRIGINE100 M1 PO; +LORAZEPAM0.5 MG PO; +METO25 PO; +MIRALAX17 GM PO; +PEPCID40 MG PO; +REMERON1510 PO; +VENL25 PO; +VENLAFAXINE HC225 MG PO; +[UNRECOGNIZED DRUG - CODE] PO; +[UNRECOGNIZED DRUG - OTHER]
[2024-02-14 11:36] VITALS: BP 116/90
[2024-02-14] MEDS ORDERED: Ketorolac Tromethamine 30mg Vial IM ONE (14:55)
== END 2024-02-14 15:15 | disposition home or self-care (01) ==
LOC: ER 11:26
DX: M25.421 Effusion, right elbow (principal); F17.210 Nicotine dependence, cigarettes, uncomplicated; W18.30XA Fall on same level, unspecified, initial encounter; Z86.73 Personal history of transient ischemic attack (TIA), and cerebral infarction without residual deficits
CPT/HCPCS: 29105; 73080; 96372; 99283-25; J1885

== ENCOUNTER 2024-12-07 11:05 | Emergency (ER) | payer OTHER ==
[~2024-12-07] VITALS: Ht 167.6 cm; Wt 45.4 kg
[2024-12-07 11:38] LABS: BASOPHILS ABSOLUTE AUTO 0.03 K/mm3 (0.00-0.23); BASOPHILS PERCENT AUTO 0 % (0-2); EOSINOPHILS ABSOLUTE AUTO 0.02 K/mm3 (0.00-0.68); EOSINOPHILS PERCENT AUTO 0 % (0-6); Hematocrit 42.7 % (33.0-51.0); Hemoglobin 14.5 g/dL (11.5-16.0); IMMATURE GRAN ABSOLUTE AUTO 0.01 K/mm3 (0.00-0.10); IMMATURE GRAN PERCENT AUTO 0 % (0-1); LYMPHOCYTES ABSOLUTE AUTO 0.76 K/mm3 (0.84-5.20); LYMPHOCYTES PERCENT AUTO 11 % (21-46); MONOCYTES ABSOLUTE AUTO 0.37 K/mm3 (0.16-1.47); MONOCYTES PERCENT AUTO 5 % (4-13); Mean Corpuscular HGB Conc 34.0 g/dL (31.5-36.5); Mean Corpuscular Volume 95 fL (80-100); NEUTROPHILS ABSOLUTE AUTO 5.81 K/mm3 (1.96-9.15); NEUTROPHILS PERCENT AUTO 83 % (41-73); NRBC ABSOLUTE 0.00 K/mm3 (0.00-0.02); NRBC Auto 0.0 /100 WBC (0.0-0.2); Platelet Count 216 K/mm3 (150-400); RDW Coefficient Variation 11.9 % (11.7-14.2); RDW Standard Deviation 42.1 fL (35.1-46.3)
[2024-12-07 12:00] LABS: Anion Gap 15 mmol/L (3-11); Blood Urea Nitrogen 20 mg/dL (8-24); CO2, Blood 22 mmol/L (21-32); Calcium, Blood 9.1 mg/dL (8.5-10.1); Chloride, Blood 100 mmol/L (98-108); Creatinine, Blood 1.06 mg/dL (0.40-1.00); Ethanol (Alcohol), Blood, Med <3 mg/dL; Glucose, Blood 94 mg/dL (70-99); Potassium, Blood 3.9 mmol/L (3.5-5.5); Sodium, Blood 133 mmol/L (136-145)
[2024-12-07] MEDS ORDERED: FentaNYL Citrate 50 MCG/ML 2 ML Injection IV ONE (12:55)
[2024-12-07] MEDS ORDERED: NiCARdipine HCL 50 MG in NS 250 ML IV SCH (13:05)
[2024-12-07] MEDS ORDERED: LORazepam 2 MG/ML 1ML Injection IV ONE (13:55)
[2024-12-07 14:10] LABS: U Amphetamine Screen Not Detected; U Barbiturate Screen Not Detected; U Benzodiazapine Screen DETECTED; U Buprenorphine Screen Not Detected; U Cannabinoids Screen Not Detected; U Cocaine Screen Not Detected; U Methadone Screen Not Detected; U Methamphetamine Screen Not Detected; U Opiates Screen Not Detected; U Oxycodone Screen Not Detected; U Phencyclidine Screen Not Detected
[2024-12-07 14:15] VITALS: BP 128/82
== END 2024-12-07 14:20 | disposition short-term general hospital (02) ==
LOC: ER 11:05
PROVIDERS: Student in an Organized Health Care Education/Training Program
DX: S06.34AA Traumatic hemorrhage of right cerebrum with loss of consciousness status unknown, initial encounter (principal); E87.1 Hypo-osmolality and hyponatremia; J44.89 Other specified chronic obstructive pulmonary disease; E03.9 Hypothyroidism, unspecified; M81.0 Age-related osteoporosis without current pathological fracture; F17.210 Nicotine dependence, cigarettes, uncomplicated; Z86.73 Personal history of transient ischemic attack (TIA), and cerebral infarction without residual deficits; Z88.0 Allergy status to penicillin; Z88.1 Allergy status to other antibiotic agents; Z88.5 Allergy status to narcotic agent; Z88.8 Allergy status to other drugs, medicaments and biological substances; Z79.890 Hormone replacement therapy; Z79.899 Other long term (current) drug therapy; W19.XXXA Unspecified fall, initial encounter
CPT/HCPCS: 70450; 70486; 71046; 72040; 72170; 73562-LT; 80048; 80320; 85025; 93005; 93010; 96365; 96375; 99285-25; J2060; J3010; J7050

== ENCOUNTER → 2025-01-05 | Outpatient (CLI) | payer OTHER | LOC: LAB 11:00 → LAB SHORT 11:00 | DX: R30.0 Dysuria (principal) | CPT/HCPCS: 87077; 87086; 87186 ==

== ENCOUNTER 2025-02-01 17:06 | Emergency (ER) | payer OTHER ==
[~2025-02-01] VITALS: Ht 167.6 cm; Wt 49.0 kg
[2025-02-01 17:33] LABS: BASOPHILS ABSOLUTE AUTO 0.04 K/mm3 (0.00-0.23); BASOPHILS PERCENT AUTO 1 % (0-2); EOSINOPHILS ABSOLUTE AUTO 0.32 K/mm3 (0.00-0.68); EOSINOPHILS PERCENT AUTO 6 % (0-6); Hematocrit 36.3 % (33.0-51.0); Hemoglobin 12.0 g/dL (11.5-16.0); IMMATURE GRAN ABSOLUTE AUTO 0.00 K/mm3 (0.00-0.10); IMMATURE GRAN PERCENT AUTO 0 % (0-1); LYMPHOCYTES ABSOLUTE AUTO 2.00 K/mm3 (0.84-5.20); LYMPHOCYTES PERCENT AUTO 38 % (21-46); MONOCYTES ABSOLUTE AUTO 0.56 K/mm3 (0.16-1.47); MONOCYTES PERCENT AUTO 11 % (4-13); Mean Corpuscular HGB Conc 33.1 g/dL (31.5-36.5); Mean Corpuscular Volume 95 fL (80-100); NEUTROPHILS ABSOLUTE AUTO 2.33 K/mm3 (1.96-9.15); NEUTROPHILS PERCENT AUTO 44 % (41-73); NRBC ABSOLUTE 0.00 K/mm3 (0.00-0.02); NRBC Auto 0.0 /100 WBC (0.0-0.2); Platelet Count 280 K/mm3 (150-400); RDW Coefficient Variation 13.0 % (11.7-14.2); RDW Standard Deviation 44.9 fL (35.1-46.3)
[2025-02-01] MEDS ORDERED: Ketorolac Tromethamine 15mg Vial IV ONE (17:40)
[2025-02-01] MEDS ORDERED: Prochlorperazine Edisylate 10 mg Vial IV ONE (17:40)
[2025-02-01 18:02] LABS: Alanine Aminotransfer (ALT/SGP 16.0 U/L (12-78); Albumin, Blood 3.9 g/dL (3.4-5.0); Albumin/Globulin Ratio 1.2 (0.8-1.8); Anion Gap 8.0 mmol/L (3-11); Aspartate Aminotrans (AST/SGOT 22.0 U/L (12-37); Bilirubin, Total 0.4 mg/dL (0.1-1.0); Blood Urea Nitrogen 21.0 mg/dL (8-24); CO2, Blood 23.0 mmol/L (21-32); Calcium, Blood 9.1 mg/dL (8.5-10.1); Chloride, Blood 109.0 mmol/L (98-108); Creatinine, Blood 1.2 mg/dL (0.40-1.00); Globulin, Blood 3.3 g/dL (2.2-4.0); Glucose, Blood 94.0 mg/dL (70-99); Magnesium, Blood 2.1 mg/dL (1.6-2.4); Potassium, Blood 3.9 mmol/L (3.5-5.5); Sodium, Blood 136.0 mmol/L (136-145); Total Protein, Blood 7.2 g/dL (6.4-8.2)
[2025-02-01] MEDS ORDERED: NS 1,000 ML IV SCH (18:40)
[2025-02-01 19:30] VITALS: BP 112/68
== END 2025-02-01 20:04 | disposition home or self-care (01) ==
LOC: ER 17:06
PROVIDERS: Emergency Medicine
DX: R51.9 Headache, unspecified (principal); N17.9 Acute kidney failure, unspecified; H53.8 Other visual disturbances; I69.154 Hemiplegia and hemiparesis following nontraumatic intracerebral hemorrhage affecting left non-dominant side; J44.89 Other specified chronic obstructive pulmonary disease; E03.9 Hypothyroidism, unspecified; M81.0 Age-related osteoporosis without current pathological fracture; F17.210 Nicotine dependence, cigarettes, uncomplicated; Z88.0 Allergy status to penicillin; Z88.1 Allergy status to other antibiotic agents; Z88.8 Allergy status to other drugs, medicaments and biological substances; Z88.5 Allergy status to narcotic agent; Z79.890 Hormone replacement therapy; Z79.01 Long term (current) use of anticoagulants; Z79.899 Other long term (current) drug therapy
CPT/HCPCS: 70450; 80053; 83735; 85025; 93005; 93010; 96374; 96375; 99285-25; J0780; J1885; J7030